=== PATIENT | female | born 1990 | race Two or more races ===

== ENCOUNTER 2023-08-11 16:07 | Outpatient (REF) | payer MEDICAID, SELFPAY ==
[2023-08-16 14:59] LABS: C. trachomatis RNA TMA NOT DETECTED (NOT DETECTED); N. gonorrhoeae RNA TMA NOT DETECTED (NOT DETECTED); Trichomonas (NAAT) NOT DETECTED (NOT DETECTED)
[2023-08-16 18:18] LABS: HPV mRNA E6/E7 rflx Not Detected (Not Detected)
== END 2023-08-11 16:08 | disposition home or self-care (01) ==
LOC: HO.HHCLNP 16:07
PROVIDERS: Visit Provider Advanced Practice Midwife
DX: Z12.4 Encounter for screening for malignant neoplasm of cervix (principal); Z11.51 Encounter for screening for human papillomavirus (HPV); Z11.3 Encounter for screening for infections with a predominantly sexual mode of transmission
CPT/HCPCS: 36415; 87491; 87591; 87624; 87661; 88142

== ENCOUNTER 2023-09-13 08:22 | Outpatient (REF) | payer MEDICAID, SELFPAY ==
[2023-09-14 15:42] LABS: IgA 279 mg/dL (47-310); IgG 1458 mg/dL (600-1640); IgM 153 mg/dL (50-300)
== END 2023-09-13 08:23 | disposition home or self-care (01) ==
LOC: HO.HHCL 08:22
PROVIDERS: Visit Provider Family Medicine
DX: Z87.09 Personal history of other diseases of the respiratory system (principal)
CPT/HCPCS: 36415; 82784

== ENCOUNTER 2023-11-30 08:36 | Outpatient (REF) | payer MEDICAID, SELFPAY ==
[2023-11-30 11:26] LABS: MANUAL DIFF FLAG NO
[2023-11-30 11:43] LABS: Basophils Percent Auto 0.5 % (0-2); Eosinophils Absolute Auto 0.1 X10*3/uL (0.0-0.4); Eosinophils Percent Auto 1.2 % (0-4); Hematocrit 40.3 % (37.0-47.0); Hemoglobin 13.3 g/dl (12.0-16.0); Imm Gran Abs Auto 0.01 X10*3/uL (0.00-0.03); Imm Gran Pct Auto 0.2 % (0.0-0.4); Lymphocytes Absolute Auto 2.3 X10*3/uL (1.2-4.9); Lymphocytes Percent Auto 38.6 % (20-40); Mean Corpuscular Hemoglobin 28.5 pg (27.0-33.0); Mean Corpuscular Volume 86.3 fL (80.0-98.0); Mean Platelet Volume 10.1 fL (9.4-12.3); Monocytes Absolute Auto 0.3 X10*3/uL (0.1-1.2); Monocytes Percent Auto 5.6 % (2-11); Neutrophils Absolute Auto 3.3 x10*3/uL (2.0-8.3); Neutrophils Percent Auto 53.9 % (45-73); Platelet Count 459 X10*3/uL (160-400); Red Blood Count 4.67 X10*6/uL (4.20-5.50); Red Cell Distribution Width 13.9 % (11.0-16.0)
[2023-11-30 12:15] LABS: Alanine Aminotransferase 27 U/L (0-31); Albumin Level 4.4 g/dL (3.5-5.0); Alkaline Phosphatase 72 U/L (39-117); Anion Gap 12 (12-20); Aspartate Amino Transferase 23 U/L (5-31); Bilirubin Total 0.4 mg/dL (0.0-1.0); Blood Urea Nitrogen 10 mg/dL (9-16); Calcium 9.3 mg/dL (8.4-10.2); Carbon Dioxide 22 mmol/L (22-29); Chloride 108 mmol/L (96-108); Estimated Glomerular Filt Rate > 60; Glucose Random 89 mg/dL (60-115); HCG Quantitative 835 mIU/mL; Potassium 3.7 mmol/L (3.3-5.1); Sodium 138 mmol/L (135-145); Total Protein 8.1 g/dL (6.5-8.0)
[2023-11-30 12:39] LABS: Vitamin B12 485 pg/mL (200-900)
[2023-12-03 13:58] LABS: Anti Nuclear Antibody Screen NEGATIVE (NEGATIVE)
[2023-12-04 09:19] LABS: ANA Pattern 2 TN
== END 2023-11-30 08:37 | disposition home or self-care (01) ==
LOC: HO.HHCL 08:36
PROVIDERS: Visit Provider Family Medicine
DX: O26.899 Other specified pregnancy related conditions, unspecified trimester (principal); O99.019 Anemia complicating pregnancy, unspecified trimester; R68.2 Dry mouth, unspecified; D51.9 Vitamin B12 deficiency anemia, unspecified
CPT/HCPCS: 36415; 80053; 82607; 82746; 84702; 85025; 86038

== ENCOUNTER 2024-06-01 17:21 | Outpatient (REF) | payer MEDICAID, SELFPAY | END 2024-06-01 17:22 | disposition home or self-care (01) | LOC: HO.HHCLNP 17:21 | PROVIDERS: Visit Provider Emergency Medicine | DX: J06.9 Acute upper respiratory infection, unspecified (principal) | CPT/HCPCS: 87086 ==

== ENCOUNTER 2024-08-02 11:51 | Outpatient (REF) | payer MEDICAID, SELFPAY ==
[2024-08-02 13:27] LABS: MANUAL DIFF FLAG NO
[2024-08-02 13:37] LABS: Basophils Percent Auto 0.5 % (0-2); Eosinophils Absolute Auto 0.2 X10*3/uL (0.0-0.4); Eosinophils Percent Auto 3.5 % (0-4); Hematocrit 33.9 % (37.0-47.0); Hemoglobin 11.3 g/dl (12.0-16.0); Imm Gran Abs Auto 0.04 X10*3/uL (0.00-0.03); Imm Gran Pct Auto 0.6 % (0.0-0.4); Lymphocytes Absolute Auto 1.7 X10*3/uL (1.2-4.9); Lymphocytes Percent Auto 26.1 % (20-40); Mean Corpuscular HGB Conc 33.3 g/dl (31.0-35.0); Mean Corpuscular Hemoglobin 28.8 pg (27.0-33.0); Mean Corpuscular Volume 86.3 fL (80.0-98.0); Mean Platelet Volume 9.5 fL (9.4-12.3); Monocytes Absolute Auto 0.4 X10*3/uL (0.1-1.2); Monocytes Percent Auto 6.8 % (2-11); Neutrophils Absolute Auto 4.1 x10*3/uL (2.0-8.3); Neutrophils Percent Auto 62.5 % (45-73); Platelet Count 377 X10*3/uL (160-400); Red Blood Count 3.93 X10*6/uL (4.20-5.50); Red Cell Distribution Width 14.3 % (11.0-16.0); White Blood Count 6.5 X10*3/uL (4.8-10.8)
[2024-08-02 14:00] LABS: Appearance Urine Cloudy; Color Urine Yellow; Glucose Urine UA Negative (Negative); Leukocyte Esterase Urine Large (3+) (Negative); Nitrite Urine Negative (Negative); Specific Gravity - Urine <= 1.005 (1.005-1.025); UMIC TRIGGER UACC YES; Urine Blood Large (3+) (Negative); Urine Ketones Negative (Negative); Urine Protein Negative (Neg-Trace)
[2024-08-02 14:06] LABS: Alanine Aminotransferase 40 U/L (0-31); Albumin Level 3.5 g/dL (3.5-5.0); Alkaline Phosphatase 177 U/L (39-117); Anion Gap 12 (12-20); Aspartate Amino Transferase 53 U/L (5-31); Bilirubin Total 0.2 mg/dL (0.0-1.0); Blood Urea Nitrogen 11 mg/dL (9-16); Carbon Dioxide 24 mmol/L (22-29); Chloride 106 mmol/L (96-108); Estimated Glomerular Filt Rate > 60; Glucose Random 85 mg/dL (60-115); Potassium 3.7 mmol/L (3.3-5.1); Sodium 138 mmol/L (135-145); Total Protein 6.8 g/dL (6.5-8.0)
[2024-08-02 14:10] LABS: TSH reflex Free T4 0.76 uIU/mL (0.32-4.0)
[2024-08-02 14:15] LABS: Bacteria Urine 4+ (None Seen); Hyaline Casts Urine 0-2 /LPF (0-2); Squamous Epithelial Cell Urine 0-2 /HPF (0-2); UACC Culture Trigger YES; WBC Urine >50 /HPF (0-5)
== END 2024-08-02 11:52 | disposition home or self-care (01) ==
LOC: HO.HHCL 11:51
PROVIDERS: Visit Provider Family Medicine
DX: R53.83 Other fatigue (principal); K59.00 Constipation, unspecified; R30.0 Dysuria
CPT/HCPCS: 36415; 80053; 81001; 84443; 85025; 87086; 87088; 87186

== ENCOUNTER 2024-08-21 11:32 | Outpatient (REF) | payer MEDICAID, SELFPAY ==
[2024-08-21 13:24] LABS: MANUAL DIFF FLAG NO
[2024-08-21 13:39] LABS: Basophils Percent Auto 0.3 % (0-2); Eosinophils Absolute Auto 0.1 X10*3/uL (0.0-0.4); Eosinophils Percent Auto 0.8 % (0-4); Hematocrit 38.3 % (37.0-47.0); Hemoglobin 12.7 g/dl (12.0-16.0); Imm Gran Abs Auto 0.02 X10*3/uL (0.00-0.03); Imm Gran Pct Auto 0.3 % (0.0-0.4); Lymphocytes Absolute Auto 1.2 X10*3/uL (1.2-4.9); Lymphocytes Percent Auto 20.2 % (20-40); Mean Corpuscular HGB Conc 33.2 g/dl (31.0-35.0); Mean Corpuscular Hemoglobin 28.1 pg (27.0-33.0); Mean Corpuscular Volume 84.7 fL (80.0-98.0); Mean Platelet Volume 9.7 fL (9.4-12.3); Monocytes Absolute Auto 0.4 X10*3/uL (0.1-1.2); Monocytes Percent Auto 6.6 % (2-11); Neutrophils Absolute Auto 4.4 x10*3/uL (2.0-8.3); Neutrophils Percent Auto 71.8 % (45-73); Platelet Count 365 X10*3/uL (160-400); Red Blood Count 4.52 X10*6/uL (4.20-5.50); Red Cell Distribution Width 14.4 % (11.0-16.0); White Blood Count 6.1 X10*3/uL (4.8-10.8)
[2024-08-21 14:17] LABS: Alanine Aminotransferase 41 U/L (0-31); Alkaline Phosphatase 136 U/L (39-117); Aspartate Amino Transferase 32 U/L (5-31); Bilirubin Direct 0.1 mg/dL (0.0-0.5); Bilirubin Total 0.4 mg/dL (0.0-1.0); Total Protein 7.4 g/dL (6.5-8.0)
[2024-08-22 08:39] LABS: Hepatitis A Antibody IgG REACTIVE (Nonreactive); ~Hepatitis A Antibody IgG 10.36 S/CO (0.00-0.99)
[2024-08-22 08:57] LABS: HBS Num1 16.27 mIU/mL (0-7.99); HBc Num1 0.17 S/CO (0.00-0.79); HBsAGNum1 0.23 S/CO (0.00-0.99); Hepatitis B Core Antibody Nonreactive (Nonreactive); Hepatitis B Surface Antigen Negative (Negative); ~HepC Num1 0.23 S/CO (0.00-0.79); ~Hepatitis B Surface Antibody REACTIVE (Nonreactive); ~Hepatitis C Antibody Nonreactive (Nonreactive)
== END 2024-08-21 11:33 | disposition home or self-care (01) ==
LOC: HO.HHCL 11:32
PROVIDERS: Visit Provider Family Medicine
DX: R74.01 Elevation of levels of liver transaminase levels (principal); D51.9 Vitamin B12 deficiency anemia, unspecified
CPT/HCPCS: 36415; 80076; 85025; 86704; 86706; 86708; 86803; 87340

== ENCOUNTER 2024-11-28 13:49 | Outpatient (REF) | payer MEDICAID, SELFPAY ==
--- NOTE | ~2024-11-28 | MM_ITS ---
EXAMINATION: MM DIAGNOSTIC DIGITAL BREAST TOMOSYNTHESIS, BILATERAL Limited right breast ultrasound for palpable lump and pain. CLINICAL INFORMATION: Right breast palpable lump and pain upper breast. COMPARISON: Mammography: Baseline. TECHNIQUE: Digital breast mammography with tomosynthesis is performed in both the craniocaudal and mediolateral oblique views along with computer-aided detection (CAD). Limited right breast ultrasound. FINDINGS: The breasts are heterogeneously dense, which may obscure small masses (ACR BI-RADS breast composition Category c). There are no significant masses, abnormal calcifications, or other abnormalities. Targeted color Doppler ultrasound scanning in the area the patient's pain and palpable lump in the upper breast from 9-3 o'clock demonstrates normal fibroglandular breast tissue. There is no sonographic abnormality. Results are provided to the patient at time of visit by the technologist. MM/MM tomosynthesis diagnostic BI IMPRESSION: Right: No mammographic or sonographic abnormality to account for the patient's palpable lump and pain. Recommend clinical evaluation follow-up. Left: Negative ASSESSMENT: BI-RADS BI-RADS 1 - Negative RECOMMENDATION: 1 year F/U This patient's information was entered into a reminder system with a target due date for their next mammogram. Electronically signed by: Kiah Rodriguez DO 11/28/2024 05:29 PM LAURIE CIFUENTES
--- OUTSIDE RECORDS SUMMARY | 2024-11-28 15:13 | XMS_ITS | Encounter Summary ---
Author Organization [employer] Address [address] [place] [address] [address] [place] [address] Care Team Providers Care Ultimate Hoops Scoreboard Operator Name Role Phone Priyanka Orozco MD Primary Care Provider [phone] Reason for Referral * Consultation (Urgent) - Closed Specialty Diagnoses / Procedures Referred By Contjose t Referred To Contact Diagnoses , unspecified gestational age Priyanka Orozco MD [address] [place] [phone] Phone: tel: fax: Tracy Ramírez [address] [place] [phone] Phone: tel: fax: Referral ID Status Reason Start Date Expiration Date V isits Requested Visits Authorized [id number] Closed Specialty Services Required 01/05/2024 01/04/2025 30 30 Encounter Details Date Type Department Care Team (Late st Contact Info) Description 12/27/2023 Orders Only [facility] [address] [place] [address] [phone] Priyanka Orozco MD [address] [place] [address] [phone] , unspecified gestational age (Primary Dx); Vitamin B12 deficiency Social History Tobacco Use Types Packs/Day Years Used Date Smoking Tobacco: Never Smokeless Tobacco: Never Alcohol Use Standard Drinks/Week Comments Yes 0 (1 standard drink = 0.6 oz pur e alcohol) Comments No Sex and Gender Information Value Date Recorded Sex Assigned at Female 08/16/2022 10:26 AM EDT Legal Sex Female 10:26 AM EDT Gender Identity Female 08/16/2022 10:26 AM EDT Sexual Orientation Straight 08/16/2022 10 :26 AM EDT documented as of this encounter Plan of Treatment Upcoming Encounters Date Type Department Care Team (Late st Contact Info) Description 12/18/2024 9:30 AM EST Clinical Support [address] [address] 01/09/2025 2:00 PM EDT Clinical Support [address] [address] Scheduled Referrals Name Type Priority Associated Diagnoses Orde r Schedule Referral to Obstetrics / Gynecology Outpatient Referral Urgent , unspecified gestational age Expected: 01/05/2024 (Approximate), Expires: 01/04/2025 documented as of this encounter Visit Diagnoses Diagnosis , unspecified gestational age- Primary Vitamin B12 deficiency Other B-complex deficiencies documented in this encounter Care Teams Ultimate Hoops Scoreboard Operator Relationship Specialty Start Date End Date Priyanka Orozco MD [address] [place] [phone] PCP - General Family Medicine 11/25/21 documented as of this encounter
--- OUTSIDE RECORDS SUMMARY | 2024-11-28 15:13 | XMS_ITS | Encounter Summary ---
Author Organization [facility] Address [address] [place] [address] [address]t [address] Floor [place] [phone] Care Team Providers Care Knit Goods Press Hand Name Role Phone Priyanka Orozco MD Primary Care Provider [phone] Encounter Details Date Type Department Care Team (Latest Contact Info) Description 12/15/2018 Abstract [facility] CONVERSION[facility] Dental, Provider, DDS Social History Tobacco Use Types Packs/Day Years Used Date Smoking Tobacco: Never Assessed Comments Unknown Sex and Gender Information Value Date Recorded Sex Assigned at Female 08/16/2022 10:26 AM EDT Legal Sex Female 10:26 AM EDT Gender Identity Female 08/16/2022 10:26 AM EDT Sexual Orientation Straight 08/16/2022 10 :26 AM EDT documented as of this encounter Plan of Treatment Upcoming Encounters Date Type Department Care Team (Late st Contact Info) Description 12/18/2024 9:30 AM EST Clinical Support [facility] [address] [place] [phone] 01/09/2025 2:00 PM EDT Clinical Support [facility] [address] [place] [phone] documented as of this encounter Visit Diagnoses Not on filedocumented in this encounter Care Teams Knit Goods Press Hand Relationship Specialty Start Date End Date Priyanka Orozco MD [address] [place] [phone] PCP - General Family Medicine 11/25/21 documented as of this encounter
--- OUTSIDE RECORDS SUMMARY | 2024-11-28 15:13 | XMS_ITS | Encounter Summary ---
Author Organization [employer] [facility] Address [address] [facility] [address]t h Floor [place] [phone] Care Team Providers Care Department Store Door Greeter Name Role Phone Priyanka Orozco MD Primary Care Provider [phone] Encounter Details Date Type Department Care Team ([facility] Contact Info) Description 08/02/2024 Orders Only [facility] [address] [place] [address] [phone] Priyanka Orozco MD [address] [place] [address] [phone] Transaminitis (Primary Dx) Social History Tobacco Use Types Packs/Day Years [...] Encounters Date Type Department Care Team (Late Contact Info) Description 12/18/2024 9:30 AM EST Clinical Support [address] [phone] 01/09/2025 2:00 PM EDT Clinical Support [address] [phone] documented as of this encounter Procedures Procedure Name Priority Date/Time Associated Diagnosis Comments HEPATITIS C AB W/REFL TO HCV RNA, QN, PCR Routine 08/21/2024 11:39 AM EST Transaminitis HEPATITIS A ANTIBODY, TOTAL Routine 08/21/2024 11:39 AM EST Transaminitis HEPATITIS B SURFACE ANTIGEN, EIA Routine 08/21/2024 11:39 AM EST Transaminitis HEPATITIS B CORE AB TOTAL Routine 08/21/2024 11:39 AM EST Transaminitis HEPATITIS B SURFACE ANTIBODY, QUALITATIVE Routine 08/21/2024 11:39 AM EST Transaminitis HEPATIC FUNCTION PANEL Routine 08/21/2024 11:39 AM EST Transaminitis CULTURE, URINE, ROUTINE Routine 08/02/2024 12:00 AM EDT Transaminitis documented in this encounter Results * Hepatitis B surface antigen, EIA (08/21/2024 11:39 AM EST) Hepatitis B Surface Ag Negative Negative [facility] Blood Venous blood specimen / Unknown 08/21/2024 11:39 AM EST 08/21/2024 1:19 PM EST us Priyanka Orozco MD LAB BLOOD ORDERABLES Final Resul t Performing Organization Address [facility] Co de Phone Number [facility] [address] [place] [phone] * Hepatitis A Antibody, Total (08/21/2024 11:39 AM EST) Hepatitis A Antibody IgG REACTIVE Nonreactive [facility] Comment:The presence of IgG anti-HAV implies past HAV infection(recent or distant) or vaccination against HAV. Blood Venous blood specimen / Unknown 08/21/2024 11:39 AM EST 08/21/2024 1:19 PM EST us Priyanka Orozco MD LAB BLOOD ORDERABLES Final Resul t Performing Organization Address City/[facility]/ZIP Co de Phone Number [facility] [address] [place] [phone] * Hepatitis C Antibody with Reflex to HCV, RNA, Quantitative, Real-Time PCR (08/21/2024 11:39 AM EST) Pathologist [facility] Hepatitis C Antibody Nonreactive Nonreactive [facility] Comment:Antibodies to HCV no t detected; does not exclude early acuteHCV infection. Blood Venous blood specimen / Unknown 08/21/2024 11:39 AM EST 08/21/2024 1:19 PM EST us Priyanka Orozco MD LAB BLOOD ORDERABLES Final Resul t Performing Organization Address [facility]/ZIP Co de Phone Number [facility] [address] [place] [phone] * Hepatitis B Core Antibody, Total (08/21/2024 11:39 AM EST) Pathologist [facility] Hepatitis B Core Antibody Nonreactive Nonreactive [facility] Blood Venous blood specimen / Unknown 08/21/2024 11:39 AM EST 08/21/2024 1:19 PM EST us Priyanka Orozco MD LAB BLOOD ORDERABLES Final Resul t Performing Organization Address [facility] Co de Phone Number [facility] [address] [place] [phone] * Hepatitis B Surface Antibody, Qualitative (08/21/2024 11:39 AM EST) Pathologist [facility] ~Hepatitis B Surface Antibody REACTIVE Nonreactive [facility] Comment:REACTIVE: > 11.99 mI U/mL Blood Venous blood specimen / Unknown 08/21/2024 11:39 AM EST 08/21/2024 1:19 PM EST us Priyanka Orozco MD LAB BLOOD ORDERABLES Final Resul t Performing Organization Address [facility]/ZIP Co de Phone Number [facility] [address] [place] [phone] * (ABNORMAL) Hepatic Function Panel (08/21/2024 11:39 AM EST) Bilirubin, Total 0.4 0.0 - 1.0 mg/dL [facility] Bilirubin, Direct 0.1 0.0 - 0.5 mg/dL [facility] Aspartate Amino Transferase 32(H) 5 - 31 U/L [facility] Alanine Aminotransferase 41(H) 0 - 31 U/L [facility] Total Protein 7.4 6.5 - 8.0 g/dL [facility] Albumin Level 4.0 3.5 - 5.0 g/dL [facility] Alkaline Phosphatase 136(H) 39 - 117 U/L [facility] Blood Venous blood specimen / Unknown 08/21/2024 11:39 AM EST 08/21/2024 1:19 PM EST Priyanka Orozco MD LAB BLOOD ORDERABLES Final Resul t [facility] [address] [place] [phone] * Culture, Urine, Routine (08/02/2024 12:00 AM EDT) Urine Urine specimen obtained by clean catch procedure / Unknown 08/02/2024 08/02/2024 Comment:[facility]ACC Narrative [facility] - 08/04/2024 8:23 AM EDT Escherichia coli Quant > 100,000 cfu/mL Escherichia coli: Ampicillin >=32(R) Escherichia coli: Cefazolin <=4(S) Escherichia coli: Ceftriaxone <=0.25(S) Escherichia coli: Ciprofloxacin <=0.25(S) Escherichia coli: Gentamicin <=1(S) Escherichia coli: Nitrofurantoin <=16(S) Escherichia coli: Trimethoprim/Sulfamethoxazole <=20(S) Specimen Source: Urine clean catch Priyanka Orozco MD LAB MICROBIOLOGY - GENERAL ORDER DEMETRICE Final Result [facility] [address] [place] [phone] documented in this encounter Visit Diagnoses Diagnosis Transaminitis- Primary Nonspecific elevation of levels of transaminase or lactic acid dehydrogenase (LDH) documented in this encounter Care Teams Department Store Door Greeter Relationship Specialty Start Date End Date Priyanka Orozco MD [address] [place] [phone] PCP - General Family Medicine 11/25/21 documented as of this encounter
--- OUTSIDE RECORDS SUMMARY | 2024-11-28 15:13 | XMS_ITS | Clinical Summary ---
Author Organization [employer] Address [address] [facility] [address] [place] [address] Care Team Providers Care Kennel Manager Dog Track Name Role Phone Priyanka Orozco MD Primary Care Provider [phone] Allergies Active Allergy Reactions Criticality Noted Date Comments Penicillins 07/12/2014 Other reaction(s): Hives/Skin Rash Medications cyclobenzaprine (Flexeril) 5 MG tabletIndications :Neck muscle spasm Take one tablet by mouth at bedtime as needed for muscle spasm. May take additional one tablet if not improving with one tablet. Maximum Daily Dose 2 tablets. DO NOT USE EVERYDAY FOR > 2 wks 30 tablet 1 10/04/20 23 Active melatonin 5 MG tablet Take 1 tablet 2-3 hours before your desired bedtime as needed for difficulty sleeping 30 tablet 3 12/27/19 24 Active pyridoxine (Vitamin B-6) 25 MG tablet Take 1 tablet (25 mg) by mouth every 6 (six) hours if needed (nausea). 100 tablet 02/06/20 24 Active cetirizine (ZyrTEC) 10 MG tablet Take 1 tablet (10 mg) by mouth Once per day. 90 tablet 3 03/06/20 24 2024 Active fluticasone (Flonase Allergy Relief) 50 MCG/ACT nasal spray Administer 1 spray into each nostril Once per day. Shake gently. Before first use, prime pump. After use, clean tip and replace cap. 16 g 12 06/01/20 24 2024 Active ondansetron (Zofran) 4 MG tablet Take 1 tablet (4 mg) by mouth every 8 (eight) hours if needed for nausea or vomiting. 12 tablet 06/29/20 24 Active Misc. Devices (Pulse Oximeter For Finger) misc 1 each 2 times daily. 1 each 06/29/20 Active docusate sodium (Colace) 100 MG capsuleIndication s:Constipation, unspecified constipation type Take 1 capsule (100 mg) by mouth 2 times daily. 60 capsule 5 08/01/20 Active ibuprofen 600 MG tabletIndications :Acute nonintractable headache, unspecified headache type,Malaise,Post cramps Take 1 tablet (600 mg) by mouth every 8 (eight) hours if needed for mild pain. 50 tablet 1 08/01/20 24 Active Acetaminophen 500 MG capsuleIndication s:Acute nonintractable headache, unspecified headache type,Malaise,Post cramps Take 1 or 2 capsules by mouth every 8 hours as needed for pain or fever 50 capsule 1 08/01/20 24 Active 27-1 MG tablet Take 1 tablet by mouth in the morning. 90 tablet 1 08/02/20 Active medroxyPROGESTERo ne (Depo-Provera) 150 MG/ML injection Inject 1 mL (150 mg) into the muscle every 3 (three) months. 1 mL 3 08/07/20 Active triamcinolone (Kenalog) 0.1 % creamIndications: Rash due to allergy Apply topically if needed in the morning and at bedtime (pain and swelling). 30 g 08/10/20 Active loratadine (Claritin) 10 MG tabletIndications :Rash due to allergy Take 1 tablet (10 mg) by mouth every 12 (twelve) hours if needed for allergies. 20 tablet 08/10/20 24 2024 Active cyanocobalamin (Vitamin B-12) 1000 MCG/ML injectionIndicati ons:Vitamin B12 deficiency INJECT 1 ML INTRAMUSCULARLY ONCE EVERY MONTH 3 mL 3 10/15/20 Active metroNIDAZOLE (Metrogel) 0.75 % gel Apply topically 2 times daily. 445 g 1 11/22/19 24 2024 Hospital, Clinic, or Other Facility Administered Medication Ordered Dose Route Frequency Start Date End Date Status cyanocobalamin (Vitamin B-12) injection 1,000 mcgIndications:Anemia due to vitamin B12 deficiency, unspecified B12 deficiency type 1000 mcg IM Every 30 days 12/27/2023 12/21/2024 Ac tive Active Problems Problem Noted Date Diagnosed Date Rash due to allergy 08/10/2024 Assessment & Plan (08/10/2024 11:44 AM EDT): Try to identify and avoid trigger I will prescribe loratadine I will prescribe prednisone only 20mg once a day (do not use breast milk after taking medication (use only once a day formula for baby) Triamcinolone locally BID if needed I will refer her to range management specialist Neck pain 10/06/2023 Assessment & Plan (10/06/2023 8:56 AM EST): - chronic, likely muscle spasm - massage, heat - continue cyclobenzaprine prn Varicose veins of bilateral lower extremities wi th pain 10/06/2023 Assessment & Plan (10/06/2023 9:02 AM EST): - leg elevation - compression stocking - refer to vascular specialist History of frequent upper respiratory infection 09/01/2023 Assessment & Plan (09/01/2023 4:27 PM EST): Pt reports life long, severe URIs that are frequent. Will screen for IG A deficiency Anxiety 02/22/2023 Assessment & Plan (10/06/2023 8:59 AM EST): - with aerophobia - previously prescribed sertraline, but not taking everyday - not interested in taking medications or BHS Assessment & Plan (02/22/2023 5:12 AM EDT): - with aerophobia - previously prescribed sertraline, but not taking everyday - will try hydroxyzine or diphenhydramine prn - if it is not effective, will try benzodiazepine only for flight Allergic rhinitis 02/22/2023 Assessment & Plan (10/06/2023 9:00 AM EST): - continue loratadine and montelukast - referred to range management specialist for allergy test and immunotherapy. Assessment & Plan (02/22/2023 5:17 AM EDT): - continue loratadine and montelukast - refer to range management specialist for allergy test and immunotherapy. Dental plaque 01/04/2023 Open adventist margins 01/04/2023 Acne vulgaris 12/14/2022 Assessment & Plan (05/27/2023 6:17 AM EDT): - seen in Derm clinic - prescribed spironolactone - continue treatment - combined OCP will be beneficial for acne Assessment & Plan (02/22/2023 5:14 AM EDT): - seen in Derm clinic - prescribed spironolactone - continue treatment Recurrent urinary tract infection 12/14/2022 Assessment & Plan (08/26/2024 4:55 PM EST): - previously following with urologist, last seen in Oct 2022 - Rx methanamine for UTI prophylaxis, stopped when she became - most recent UTI on 08/01/24. E.coli; initially prescribed nitrofurantoin, which was changed to cefuroxime. Patient did not complete cefuroxime. Patient was advised to complete cefuroxime treatment. - patient was advised to go to ED if her symptoms do not improve or worsen. Assessment & Plan (02/22/2023 5:16 AM EDT): - following with urologist - Rx methanamine for UTI prophylaxis. Vitamin B12 deficiency anemia 12/14/2022 Assessment & Plan (08/21/2024 10:35 AM EST): - continue vitamin B12 IM - recheck lab Assessment & Plan (10/06/2023 8:58 AM EST): - continue vitamin B12 IM - recheck lab Assessment & Plan (02/22/2023 5:15 AM EDT): - continue vitamin B12 IM - recheck lab Resolved Problems Problem Noted Date Diagnosed Date Resolved Date Dry mouth 10/04/2023 08/01/2024 Assessment & Plan (10/06/2023 8:58 AM EST): - likely related to allergic rhinitis - will check for Sjogren's On oral contraceptive therapy for acne 05/27/2023 10/04/2023 Assessment & Plan (05/27/2023 6:15 AM EDT): - for both contraceptive and non-contraceptive indication - monophasic combined OCP will be beneficial for acne Aerophobia 02/22/2023 08/01/2024 Assessment & Plan (02/22/2023 5:15 AM EDT): - trial of hydroxyzine prn flight Viral gastroenteritis 10/15/20222022 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 , antepartum 01/14/2011 10/04/2023 Encounters Date Type Department Care Team Description 11/20/2024 10:00 AM EST Clinical Support [facility] [address] [place] [id number] Heather Razo RN Anemia due to vitamin B12 deficiency, unspecified B12 deficiency type 11/20/2024 Travel 10/25/2024 Orders Only [facility] [address] [place] [phone] Priyanka Orozco MD Breast pain, right (Primary Dx); Breast lump on right side at 6 o'clock position 10/24/2024 2:00 PM EST Clinical Support [facility] [address] [place] [address] Heather Razo RN Family planning counseling 10/24/2024 Travel 10/14/2024 Refill [facility] [address] [place] [address] Priyanka Orozco MD Vitamin B12 deficiency from Last 3 Months Immunizations Name Administration Dates Next Due DTaP 12/20/1994, 2,02/27/1991,09/14,1990 HPV, Quadrivalent 01/14/2011,04/16/2009,02/15/20 09 Hep A, Adult 09/18/2013,01/12/2013 Hep B, Adolescent or Pediatric 06/20/1998,1997 Hep B, adult 04/12/2017, 7,02/14/2009,09/05 IPV 12/30/1994, 2,02/27/1991,09/14,1990 Influenza Injectable Quadriv alant Preservative Free IIV4 MDCK 07/02/2020 Influenza injectable quadriv alent IIV4 with preservative 06/27/2019 Influenza injectable quadriv alent preservative free 06/24/2022,10/02/2021 Influenza, IIV3, injectable 07/19/2017,1 11/07/2015,09/26/2015,09/18,08/02/2011,08/13/2009,10/22/2008 Influenza, live, intranasal 09/11/2010 MMR 04/12/2017, 7,01/01/1994,08/17 Meningococcal MPSV4 10/22/2008 Moderna Covid-19 Vaccine 12+ 10/02/2021,11/27/19 21,10/30/2020 Rubella 10/05/2002 Tdap 06/24/2022,07/05/2017,10/22/2008 Varicella 01/02/2019,02/05/2009 Family History Medical History Relation Name Comments Stomach cancer Maternal Grandmother Relation Name Status Comments Maternal Grandmother Social History Tobacco Use Types Packs/Day Years Used Date Smoking Tobacco: Never Smokeless Tobacco: Never Tobacco Cessation:Counseling Given: Not Answered Alcohol Use Standard Drinks/Week Comments Not Currently 0 (1 standard drink = 0.6 oz pur e alcohol) Comments No Sex and Gender Information Value Date Recorded Sex Assigned at Female 08/16/2022 10:26 AM EDT Legal Sex Female 10:26 AM EDT Gender Identity Female 08/16/2022 10:26 AM EDT Sexual Orientation Straight 08/16/2022 10 :26 AM EDT Last Filed Vital Signs Vital Sign Reading Time Taken Comments Blood Pressure 135/81 08/21/2024 9:50 AM EST Pulse 121 08/21/2024 9:50 AM EST Temperature 36.1 ??C (96.9 ??F) 08/21/2024 9:50 AM ES T Respiratory Rate 20 08/10/2024 9:51 AM EDT Oxygen Saturation 97% 08/21/2024 9:50 AM EST Inhaled Oxygen Concentration - - Weight 84 kg (185 lb 4 oz) 08/21/2024 9:[address] Height 162.6 cm (5' 4 ) 08/21/2024 9:50 AM EST Body Mass Index 31.8 08/21/2024 9:50 AM EST Plan of Treatment Upcoming Encounters Date Type Department Care Team (Late st Contact Info) Description 12/18/2024 9:30 AM EST Clinical Support [address] [address] 01/09/2025 2:00 PM EDT Clinical Support [address] [address] Health Maintenance Due Date Last Done Comments Depression Screening 1990 SDOH Screening 1990 Alcohol/Substance Use Screening 2002 Dental Oral Exam 07/08/2023 01/04/2023 Dental Prophylaxis 07/08/2023 01/04/2023 Dental X-Ray: Bitewings 01/06/2024 01/04/2023 COVID-19 Vaccine ( season) 2024 10/02/2021, 11/27/2020, 10/30/2020 Influenza Vaccine (#1) 2024 , 10/02/2021, 07/02/2020, Additional history exists Family Planning (PISQ) 08/07/2025 08/07/2024 Tobacco Screening 08/21/2025 08/21/2024 Dental X-Ray: Full Mouth 01/05/2026 01/04/2023 Cervical Cancer Screening 08/11/2026 HPV/Cotest 08/11/2026 08/11/2023 Pap Smear 08/11/2026 08/11/2023, 08/11/2023 DTaP/Tdap/Td Vaccines (9 - Td or Tdap) 06/24/2032 06/24/2022, 07/05/2017, 10/22/2008, Additional history exists Zoster Vaccines (1 of 2) 2040 RSV Patients and Patients Aged 60 years or older (1 - 1-dose 75+ series) 2065 IPV Vaccines Completed 12/30/1994, 12/15, 02/27/1991, Additional history exists Meningococcal Vaccine Aged Out 10/22/2008 No tati nikunj eligible based on patient's age to complete this topic HPV Vaccines Completed 01/14/2011, 07/0 10/2008, 02/14/2009 Hepatitis A Vaccines Aged Out 09/18/2013, 01/13/20 13 No longer eligible based on patient's age to complete this topic Hepatitis B Vaccines Completed 04/12/2017, 02/08/2017, 02/14/2009, Additional history exists HIV Screening Completed 03/31/2023, 12/04/2021 Hepatitis C Screening Completed 08/21/2024 , 03/31/2023, 12/04/2021 HIB Vaccines Aged Out No longer eligi ble based on patient's age to complete this topic Pneumococcal Vaccine: Pediatrics (0 to 5 Years) and At-Risk Patients (6 to 49) Years) Aged Out No longer eligible based on patient's age to complete this topic RSV under 20 months Aged Out No longe r eligible based on patient's age to complete this topic Rotavirus Vaccines Aged Out No longer eligible based on patient's age to complete this topic Procedures Procedure Name Priority Date/Time Associated Diagnosis Comments HEPATITIS C AB W/REFL TO HCV RNA, QN, PCR Routine 08/21/2024 11:39 AM EST Transaminitis HPV MRNA E6/E7 REFLEX TO HPV 16, 18/45 Routine 08/11/2023 9:30 AM EDT IMAGE-GUIDED PAP W/AGE BASED SCR,W/CT/NG/TRICH Routine 08/11/2023 9:30 AM EDT Encntr screen for infections w sexl mode of transmiss Cervical cancer screening HIV 1/2 ANTIGEN/ANTIBODY, FOURTH GENERATION W/RFL Routine 03/31/2023 1:33 PM EDT Routine screening for STI (sexually transmitted infection) PERIODIC ORAL EVALUATION - ESTABLISHED PATIENT Routine 01/04/2023 9:00 AM EDT PROPHYLAXIS - ADULT Routine 01/04/2023 8 :00 AM EDT Dental plaque DIAGNOSTIC - DIAGNOSTIC IMAGING - INTRAORAL - COMPREHENSIVE SERIES OF RADIOGRAPHIC IMAGES Routine 01/04/2023 8:00 AM EDT Dental plaque from Last 3 Months or Most Recently Relevant to Health Maintenance Results * Hepatitis C Antibody with Reflex to HCV, RNA, Quantitative, Real-Time PCR (08/21/2024 11:39 AM EST) Hepatitis C Antibody Nonreactive Nonreactive [facility] Comment:Antibodies to HCV no t detected; does not exclude early acuteHCV infection. Blood Venous blood specimen / Unknown 08/21/2024 11:39 AM EST 08/21/2024 1:19 PM EST rPiyanka Orozco MD LAB BLOOD ORDERABLES Final Resul t Performing Organization Address [facility] Co de Phone Number [facility] [address] [place] [phone] * Image-Guided Pap with Age-Based Screening??with CT/NG,??Trichomonas (08/11/2023 9:30 AM EDT) Trichomonas (NAAT) NOT DETECTED NOT DETECTED [facility] Comment:The analytical perfo rmance characteristics of thisassay have been determined by [employer]. Themodifications have not been cleared or approved bythe FDA. This assay has been validated pursuant to theCLIA regulations and is used for clinical purposes.For additional information, please refer tohttp://education.HeartThis/faq/Trichomonastma(This link is being provided for information/educational purposes only.)THIS TEST WAS PERFORMED AT:[facility] [place] [phone] R DE LEÓN MD CTNG Ref Lab NOT DETECTED NOT DETECTED [facility] NG Ref Lab NOT DETECTED NOT DETECTED [facility] 08/11/2023 9:30 AM EDT 08/12/2023 6:30 AM EDT Saritha LORD LAB CYTOLOGY ORDERABLES F inal Result Performing Organization Address [facility]/ZIP Co de Phone Number [facility] [address] [place] [phone] * HPV mRNA E6/E7 w/Reflex to HPV Genotypes 16, 18/45 (08/11/2023 9:30 AM EDT) HPV nRNA E6/E7 Not Detected Not Detected [facility] Comment:Methodology: Transcr iption-Mediated AmplificationThis assay detects E6/E7 viral messenger RNA (mRNA) from 14high-risk HPV types (16,18,31,33,35,39,45,51,52,56,58,59,66,68).Cervical sources are required for HPV testing.If a vaginal source from a patient who has had atotal hysterectomy with removal of cervix wassubmitted, please contact the testing laboratoryfor alternative testing options.For additional information, please refer tohttp://education.HeartThis/faq/ZAY486f8(This link if provided for information/educational purposes only.)THIS TEST WAS PERFORMED AT:[facility] [address] [phone] R DE LEÓN MD HPV mRNA E6/E7 [facility] HPV 16 RNA [facility] HPV 18/45 RNA [facility] 08/11/2023 9:30 AM EDT 08/12/2023 6:30 AM EDT Saritha Oro [facility] CYTOLOGY ORDERABLES F inal Result [facility] [address] [place] [phone] * HIV-1/2 Antigen and Antibodies, Fourth Generation, with Reflexes (03/31/2023 1:33 PM EDT) HIV Antigen/Antibody, 4th Generation NON-REAC TIVE NON-REAC TIVE [facility] Comment: HIV-1 antigen and HIV-1/HIV-2 antibodies were not detected. There is no laboratory evidence of HIV infection. PLEASE NOTE: This information has been disclosed to you from records whose confidentiality may be protected by state law. ??If your state requires such protection, then the state law prohibits you from making any further disclosure of the information without the specific written consent of the person to whom it pertains, or as otherwise permitted by law. A general authorization for the release of medical or other information is NOT sufficient for this purpose. ?? For additional information please refer to http://Tonx.HeartThis/faq/YSU243 (This link is being provided for informational/ educational purposes only.) The performance of this assay has not been clinically validated in patients less than 2 years old. Blood Venous blood specimen / Unknown 03/31/2023 1:33 PM EDT 03/31/2023 1:34 PM EDT Narrative [facility] - 04/07/2023 7:14 PM EDT FASTING:NO FASTING: NO us Priyanka Orozco MD LAB BLOOD ORDERABLES Final Resul t [facility] [address], [place] [address] [facility] [address] [place] [phone] from Last 3 Months or Most Recently Relevant to Health Maintenance Insurance [facility] C3 * Guarantor: Pamela Louie Account Type Relation to Patient Date of Phone Billing Address Dental Self [address] [place] [address] [facility] MEDICAID STAND ADULT Care Teams Kennel Manager Dog Track Relationship Specialty Start Date End Date Priyanka Orozco MD [address] [place] [phone] PCP - General Family Medicine 11/25/21
--- OUTSIDE RECORDS SUMMARY | 2024-11-28 15:13 | XMS_ITS | Encounter Summary ---
Author Organization [facility] Address [address] [place] [address] [address] [place] [address] Care Team Providers Care Digital Production Artist Name Role Phone Priyanka Orozco MD Primary Care Provider [phone] Reason for Referral * Imaging (Routine) - Authorized Specialty Diagnoses / Procedures Referred By Feliz cabezas Referred To Contact Radiology Diagnoses Breast pain, right Breast lump on right side at 6 o'clock position Procedures BI US Breast Complete Right Priyanka Orozco MD [address] [place] [address] Phone: tel: fax: [address] Phone: tel: fax: Referral ID Status Reason Start Date Expiration Date V isits Requested Visits Authorized [id number] Authorized 10/25/2024 10/25/2025 1 1 * Imaging (Routine) - Authorized Specialty Diagnoses / Procedures Referred By Feliz cabezas Referred To Contact Radiology Diagnoses Breast pain, right Breast lump on right side at 6 o'clock position Procedures BI Mammogram Diagnostic Tomosynthesis added right Priyanka Orozco MD [address] [place] [address] Phone: tel: fax: [address] Phone: tel: fax: Referral ID Status Reason Start Date Expiration Date V isits Requested Visits Authorized [id number] Authorized 10/25/2024 10/25/2025 1 1 Encounter Details Date Type Department Care Team (Late st Contact Info) Description 10/25/2024 Orders Only [address] [address] Priyanka Orozco MD [address] [place] [phone] Breast pain, right (Primary Dx); Breast lump on right side at 6 o'clock position Social History Tobacco Use Types Packs/Day Years Used Date Smoking Tobacco: Never Smokeless Tobacco: Never Alcohol Use Standard Drinks/Week Comments Not Currently [...] Description 12/18/2024 9:30 AM EST Clinical Support [address] [address] 01/09/2025 2:00 PM EDT Clinical Support [address] [address] Scheduled Orders Name Type Priority Associated Diagnoses Orde r Schedule BI Mammogram Diagnostic Tomosynthesis added right Imaging Routine Breast pain, right Breast lump on right side at 6 o'clock position Expected: 10/25/2024, Expires: 12/23/2025 BI US Breast Complete Right Imaging Routine Breast pain, right Breast lump on right side at 6 o'clock position Expected: 10/25/2024, Expires: 12/23/2025 documented as of this encounter Visit Diagnoses Diagnosis Breast pain, right- Primary Breast lump on right side at 6 o'clock position Lump or mass in breast documented in this encounter Care Teams Digital Production Artist Relationship Specialty Start Date End Date Priyanka Orozco MD [address] [place] [phone] PCP - General Family Medicine 11/25/21 documented as of this encounter
--- OUTSIDE RECORDS SUMMARY | 2024-11-28 15:13 | XMS_ITS | Encounter Summary ---
Author Organization [employer] Address [address] [place] [address] 7t [place] [address] Care Team Providers Care Picture Enlarger Name Role Phone Priyanka Orozco MD Primary Care Provider [phone] Encounter Details Date Type Department Care Team (Late st Contact Info) Description 03/21/2023 Orders Only [facility] [address] [place], [place] [phone] Priyanka Orozco MD [address] [place], [place] [phone] Fatigue, unspecified type (Primary Dx); Anemia due to vitamin B12 deficiency, unspecified B12 deficiency type; Routine screening for STI (sexually transmitted infection) Social History Tobacco Use Types Packs/Day Years Used Date Smoking Tobacco: Never Smokeless Tobacco: Never Comments No Sex and Gender Information Value Date Recorded Sex Assigned at Female 08/16/2022 10:26 AM EDT Legal Sex Female 10:26 AM EDT Gender Identity Female 08/16/2022 10:26 AM EDT Sexual Orientation Straight 08/16/2022 10 :26 AM EDT COVID-19 Exposure Response Date Recorded In the last 10 days, have yo u been in contact with someone who was confirmed or suspected to have Coronavirus/COVID-19? No / Unsure 03/18/2023 8:49 AM EDT documented as of this encounter Miscellaneous Notes * Result Encounter Note - Priyanka Orozco MD - 03/21/2023 6:02 AM EDT Please call the patient regarding her abnormal result low ferritin. Agreed to start iron supplementation. documented in this encounter Plan of Treatment Upcoming Encounters Date Type Department Care Team (Late st Contact Info) Description 12/18/2024 9:30 AM EST Clinical Support [facility] [address] [place] [address] 01/09/2025 2:00 PM EDT Clinical Support [facility] [address] Scheduled Orders Name Type Priority Associated Diagnoses Orde r Schedule Chlamydia/N. Gonorrhoeae RNA, TMA, Urogenitial Microbiology Routine Routine screening for STI (sexually transmitted infection) Expected: 03/21/2023 (Approximate), Expires: 03/21/2024 documented as of this encounter Procedures Procedure Name Priority Date/Time Associated Diagnosis Comments RPR TITER REFLEX Routine 03/31/2023 1:33 PM EDT VITAMIN B12/FOLATE, SERUM PANEL Routine 03/31/2023 1:33 PM EDT Fatigue, unspecified type Anemia due to vitamin B12 deficiency, unspecified B12 deficiency type TSH W/REFLEX TO FT4 Routine 03/31/2023 1 :33 PM EDT Fatigue, unspecified type RPR (DX) W/REFL TITER AND CONFIRMATORY TESTING Routine 03/31/2023 1:33 PM EDT Routine screening for STI (sexually transmitted infection) HEPATITIS B SURFACE AB IMMUNITY, QN Routine 03/31/2023 1:33 PM EDT Routine screening for STI (sexually transmitted infection) TREPONEMA PALLIDUM (FTA) ANTIBODY Routine 03/31/2023 1:33 PM EDT CBC WITH AUTO DIFFERENTIAL Routine 03/31/2023 1:33 PM EDT Fatigue, unspecified type Anemia due to vitamin B12 deficiency, unspecified B12 deficiency type HEPATITIS C AB W/REFL TO HCV RNA, QN, PCR Routine 03/31/2023 1:33 PM EDT Routine screening for STI (sexually transmitted infection) IRON AND TOTAL IRON BINDING CAPACITY Routine 03/31/2023 1:33 PM EDT Fatigue, unspecified type HEPATITIS B CORE AB TOTAL Routine 03/31/2023 1:33 PM EDT Routine screening for STI (sexually transmitted infection) HIV 1/2 ANTIGEN/ANTIBODY, FOURTH GENERATION W/RFL Routine 03/31/2023 1:33 PM EDT Routine screening for STI (sexually transmitted infection) HEPATITIS B SURFACE ANTIGEN W/REFL CONFIRM Routine 03/31/2023 1:33 PM EDT Routine screening for STI (sexually transmitted infection) HEMOGLOBIN A1C Routine 03/31/2023 1:33 PM EDT Fatigue, unspecified type FERRITIN Routine 03/31/2023 1:33 PM EDT Fatigue, unspecified type COMPREHENSIVE METABOLIC PANEL Routine 03/31/2023 1:33 PM EDT Fatigue, unspecified type Anemia due to vitamin B12 deficiency, unspecified B12 deficiency type documented in this encounter Results * Treponema Pallidum (FTA) Antibody (FTA-ABS) (03/31/2023 1:33 PM EDT) FTA-ABS Nonreactive Nonreactive [facility] Comment: The FTA-ABS is a treponemal assay that is intended to be used with other tests (e.g., RPR) as part of a diagnostic algorithm in the diagnosis of syphilis. 03/31/2023 1:33 PM EDT 03/31/2023 1:34 PM EDT Narrative [facility] - 04/07/2023 7:14 PM EDT FASTING:NO FASTING: NO us Priyanka Orozco MD LAB BLOOD ORDERABLES Final Resul t [facility] [address], [place] [address] [facility] [address] [place] [address] * (ABNORMAL) RPR TITER REFLEX (03/31/2023 1:33 PM EDT) RPR Titer 1:1(H) [facility] [place] [facility] 03/31/2023 1:33 PM EDT 03/31/2023 1:34 PM EDT Narrative [facility] - 04/07/2023 7:14 PM EDT FASTING:NO FASTING: NO Priyanka Orozco MD LAB BLOOD ORDERABLES Final Resul t Performing Organization Address [facility]/ZIP Co de Phone Number FP Complete [address] [place] [address], [place] [address] [facility] [place] [facility] [address] [place] [phone] * (ABNORMAL) RPR (Diagnosis) with Reflex to Titer??and Confirmatory Testing (03/31/2023 1:33 PM EDT) Pathologist [facility] RPR (DX) w/Refl Titer and Confirmatory Testing REACTIVE( A) NON-REACT KARLI [facility] [place] [employer] 03/31/2023 1:33 PM EDT 03/31/2023 1:34 PM EDT Narrative [facility] - 04/07/2023 7:14 PM EDT FASTING:NO FASTING: NO Priyanka Orozco MD LAB BLOOD ORDERABLES Final Resul t Performing Organization Address City/[facility]/ZIP Co de Phone Number [address], [facility] [place] [place] [address] [facility] [place] [facility] [address] [place] [phone] * HIV-1/2 Antigen and Antibodies, Fourth Generation, with Reflexes (03/31/2023 1:33 PM EDT) Pathologist [facility] HIV Antigen/Antibody, 4th Generation NON-REAC TIVE NON-REAC TIVE [facility] [place] [employer] Comment: HIV-1 antigen and HIV-1/HIV-2 antibodies were [...] ?? For additional information please refer to http://[employer]/faq/ENH945 (This link is being provided for informational/ educational purposes only.) The performance of this assay has not been clinically validated in patients less than 2 years old. Blood Venous blood specimen / Unknown 03/31/2023 1:33 PM EDT 03/31/2023 1:34 PM EDT Narrative [facility] - 04/07/2023 7:14 PM EDT FASTING:NO FASTING: NO us Priyanka Orozco MD LAB BLOOD ORDERABLES Final Resul t [facility] [address], [place] [address] [facility] [place] [employer] [address] [place] [address] * Hepatitis C Antibody with Reflex to HCV, RNA, Quantitative, Real-Time PCR (03/31/2023 1:33 PM EDT) Hepatitis C Antibody NON-REACT KARLI NON-REACT KARLI [facility] [place] [facility] Index 0.08 <1.00 [facility] [place] [facility] Comment: HCV antibody was non-reactive. There is no laboratory evidence of HCV infection. In most cases, no further action is required. However, if recent HCV exposure is suspected, a test for HCV RNA (test code 72027) is suggested. For additional information please refer to http://[employer]/faq/TRO88u8 (This link is being provided for informational/ educational purposes only.) Blood Venous blood specimen / Unknown 03/31/2023 1:33 PM EDT 03/31/2023 1:34 PM EDT Narrative [facility] - 04/07/2023 7:14 PM EDT FASTING:NO FASTING: NO Priyanka Orozco MD LAB BLOOD ORDERABLES Final Resul t Performing Organization Address [facility]/ZIP Co de Phone Number [address], [place] [address] [facility] [place] [facility] [address] [place] [phone] * Hepatitis B Surface Antigen with Reflex Confirmation (03/31/2023 1:33 PM EDT) Hepatitis B Surface Ag NON-REACT KARLI NON-REACT KARLI [facility] [place] [employer] Blood Venous blood specimen / Unknown 03/31/2023 1:33 PM EDT 03/31/2023 1:34 PM EDT [facility] FP Complete - 04/07/2023 7:14 PM EDT FASTING:NO FASTING: NO Result [facility] Priyanka Orozco MD LAB BLOOD ORDERABLES Final Resul t Performing Organization Address [facility] de Phone Number [address], [place] [address] [facility] [place] [facility] [address] [place] [phone] * Hepatitis B Surface Antibody Immunity, Quantitative (03/31/2023 1:33 PM EDT) Hepatitis B Surface Antibody Immunity, QN 12 > OR = 10 mIU/mL [facility] [place] [employer] Comment: PATIENT HAS IMMUNITY TO HEPATITIS B VIRUS. For additional information, please refer to http://education.[employer]/faq/HDF940 (This link is being provided for informational/ educational purposes only). Blood 03/31/2023 1:33 PM EDT 03/31/2023 1:34 PM EDT Narrative [facility] - 04/07/2023 7:14 PM EDT FASTING:NO FASTING: NO Priyanka Orozco MD LAB BLOOD ORDERABLES Final Resul t Performing Organization Address [facility] de Phone Number [facility] [address] [place] [address], [facility] [place] [place] [address] [facility] [address] [place] [address] * Hepatitis B Core Antibody, Total (03/31/2023 1:33 PM EDT) Hepatitis B Core Antibody Total NON-REACT KARLI NON-REACT KARLI [facility] [place] [employer] Blood Venous blood specimen / Unknown 03/31/2023 1:33 PM EDT 03/31/2023 1:34 PM EDT Narrative [facility] - 04/07/2023 7:14 PM EDT FASTING:NO FASTING: NO Priyanka Orozco MD LAB BLOOD ORDERABLES Final Resul t Performing Organization Address [facility] de Phone Number [facility] [address], [facility] [place] [place] [address] [facility] [address] * TSH W/Reflex to FT4 (03/31/2023 1:33 PM EDT) TSH w/Reflex to FT4 0.90 mIU/L [facility] Comment: ?Reference Range ?> or = 20 Years ??0.40-4.50 ? Ranges ?First trimester ?0.26-2.66 ?Second trimester ?? 0.55-2.73 ?Third trimester ?0.43-2.91 Blood 03/31/2023 1:33 PM EDT 03/31/2023 1:34 PM EDT Narrative [facility] - 04/07/2023 7:14 PM EDT FASTING:NO FASTING: NO Priyanka Orozco MD LAB BLOOD ORDERABLES Final Resul t Performing Organization Address [facility] Co de Phone Number [facility] [address], [facility] [place] [place] [address] [facility] [place] [facility] [address] [place] [address] * Hemoglobin A1c (03/31/2023 1:33 PM EDT) Pathologist [facility] Hemoglobin A1c 5.2 <5.7 % of total Hgb [facility] [place] [employer] Comment: For the purpose of screening for the presence of diabetes: <5.7% ? Consistent with the absence of diabetes 5.7-6.4% ?Consistent with increased risk for diabetes ?(prediabetes) > or =6.5% ??Consistent with diabetes This assay result is consistent with a decreased risk of diabetes. Currently, no consensus exists regarding use of hemoglobin A1c for diagnosis of diabetes in children. According to [place] Diabetes Association (ADA) guidelines, hemoglobin A1c <7.0% represents optimal control in non- diabetic patients. Different metrics may apply to specific patient populations. Standards of Medical Care in Diabetes(ADA). ?? Blood Venous blood specimen / Unknown 03/31/2023 1:33 PM EDT 03/31/2023 1:34 PM EDT Narrative [facility] - 04/07/2023 7:14 PM EDT FASTING:NO FASTING: NO Priyanka Orozco MD LAB BLOOD ORDERABLES Final Resul t Performing Organization Address City/[facility]/ZIP Co de Phone Number [facility] [address], [facility] [place] [place] [address] [facility] [place] [employer] [address] [place] [address] * (ABNORMAL) CBC auto differential (03/31/2023 1:33 PM EDT) Pathologist [facility] White Blood Cell Count 6.6 3.8 - 10.8 Thousand/ uL [facility] [place] [facility] Red Blood Cell Count 4.61 3.80 - 5.10 Million/u L [facility] [place] [facility] Hemoglobin 13.0 11.7 - 15.5 g/dL [facility] [place] [facility] Hematocrit 39.4 35.0 - 45.0 % [facility] [place] [facility] MCV 85.5 80.0 - 100.0 fL [facility] [place] [facility] MCH 28.2 27.0 - 33.0 pg [facility] [place] [facility] MCHC 33.0 32.0 - 36.0 g/dL [facility] [place] [facility] RDW 13.7 11.0 - 15.0 % [facility] [place] [facility] Platelet Count 411(H) 140 - 400 Thousand/ uL [facility] [place] [employer] MPV 9.9 7.5 - 12.5 fL [facility] [place] [employer] Absolute Neutrophils 3,478 1,500 - 7,800 cells/uL [facility] [place] [facility] [facility] Absolute Lymphocytes 2,567 850 - 3,900 cells/uL [facility] [place] [facility] Absolute Monocytes 422 200 - 950 cells/uL [facility] [place] [facility] [facility] Absolute Eosinophils 92 15 - 500 cells/uL [facility] [place] [employer] [facility] Absolute Basophils 40 0 - 200 cells/uL [facility] [place] [employer] [facility] Neutrophils 52.7 % [facility] [place] [employer] Lymphocytes 38.9 % [facility] [place] [employer] [facility] Monocytes 6.4 % [facility] [place] [employer] Eosinophils 1.4 % [facility] [place] [employer] Basophils 0.6 % [facility] [place] [employer] [facility] Blood Venous blood specimen / Unknown 03/31/2023 1:33 PM EDT 03/31/2023 1:34 PM EDT Narrative [facility] - 04/07/2023 7:14 PM EDT FASTING:NO FASTING: NO us Priyanka Orozco MD LAB BLOOD ORDERABLES Final Resul t [facility] [address], [place] [address] [facility] [place] [employer] [facility] [address] [place] [address] * Comprehensive Metabolic Panel (03/31/2023 1:33 PM EDT) Glucose 102 65 - 139 mg/dL [facility] [place] [employer] Comment: ? Non-fasting reference interval Urea Nitrogen (BUN) 11 7 - 25 mg/dL [facility] [place] [employer] Creatinine, Serum 0.72 0.50 - 0.97 mg/dL [facility] [place] [facility] eGFR 114 > OR = 60 mL/min/1 .73m2 [facility] [place] [employer] Comment: The eGFR is based on the CKD-EPI 2020 equation. To calculate the new eGFR from a previous Creatinine or Cystatin C result, go to https://www.kidney.org/professionals/ kdoqi/gfr%5Fcalculator BUN/Creatinine Ratio NOT APPLICABLE 6 - (calc) [facility] [place] [employer] Sodium 138 135 - 146 mmol/L [facility] [place] [facility] Potassium 4.1 3.5 - 5.3 mmol/L [facility] [place] [facility] Chloride 101 98 - 110 mmol/L [facility] [place] [employer] Carbon Dioxide 30 20 - 32 mmol/L [facility] [place] [facility] Calcium 9.4 8.6 - 10.2 mg/dL [facility] [place] [facility] Protein, Total 7.5 6.1 - 8.1 g/dL [facility] [place] [facility] Albumin 4.4 3.6 - 5.1 g/dL [facility] [place] [facility] Globulin 3.1 1.9 - 3.7 g/dL (calc) [facility] [place] [employer] Albumin/Globul in Ratio 1.4 1.0 - 2.5 (calc) [facility] [place] [facility] Bilirubin, Total 0.3 0.2 - 1.2 mg/dL [facility] [place] [facility] Alkaline Phosphatase 67 31 - 125 U/L [facility] [place] [facility] AST 17 10 - 30 U/L [facility] [place] [facility] ALT 22 6 - 29 U/L [facility] [place] [facility] Blood Venous blood specimen / Unknown 03/31/2023 1:33 PM EDT 03/31/2023 1:34 PM EDT Narrative [facility] - 04/07/2023 7:14 PM EDT FASTING:NO FASTING: NO Priyanka Orozco MD LAB BLOOD ORDERABLES Final Resul t Performing Organization Address [facility] de Phone Number [facility] [address], [facility] [place] [place] [address] [facility] [place] [employer] [address] [place] [address] * Vitamin B12/Folate, Serum Panel (03/31/2023 1:33 PM EDT) Vitamin B12 715 200 - 1,100 pg/mL [facility] [place] [employer] Folate, Serum 21.4 ng/mL [facility] [place] [employer] Comment: ? Reference Range ? Low: ? <3.4 ? Borderline: ?3.4-5.4 ? Normal: ?>5.4 03/31/2023 1:33 PM EDT 03/31/2023 1:34 PM EDT Narrative [facility] - 04/07/2023 7:14 PM EDT FASTING:NO FASTING: NO Priyanka Orozco MD LAB BLOOD ORDERABLES Final Resul t Performing Organization Address [facility]/ZIP Co de Phone Number [facility] [address], [place] [address] [facility] [place] [employer] [address] [place] [address] * (ABNORMAL) Iron And Total Iron Binding Capacity (03/31/2023 1:33 PM EDT) Pathologist [facility] Iron, Total 50 40 - 190 mcg/dL [facility] [place] [facility] Iron Binding Capacity 441 250 - 450 mcg/dL (calc) [facility] [place] [employer] [facility] % Saturation 11(L) 16 - 45 % (calc) [facility] [place] [employer] [facility] Blood Venous blood specimen / Unknown 03/31/2023 1:33 PM EDT 03/31/2023 1:34 PM EDT Narrative [facility] - 04/07/2023 7:14 PM EDT FASTING:NO FASTING: NO Priyanka Orozco MD LAB BLOOD ORDERABLES Final Resul t Performing Organization Address [facility] de Phone Number [address] [address] [facility] [place] [facility] [address] [place] [address] * (ABNORMAL) Ferritin (03/31/2023 1:33 PM EDT) [facility] Ferritin 11(L) 16 - 154 ng/mL [facility] [place] [employer] [facility] Blood Venous blood specimen / Unknown 03/31/2023 1:33 PM EDT 03/31/2023 1:34 PM EDT Narrative [facility] - 04/07/2023 7:14 PM EDT FASTING:NO FASTING: NO Priyanka Orozco MD LAB BLOOD ORDERABLES Final Resul t Performing Organization Address [facility] de Phone Number [address] [address] [facility] [place] [facility] [address] [place] [address] documented in this encounter Visit Diagnoses Diagnosis Fatigue, unspecified type- Primary Anemia due to vitamin B12 deficiency, unspecified B12 deficiency type Routine screening for STI (sexually transmitted infection) Screening examination for venereal disease documented in this encounter Care Teams Picture Enlarger Relationship Specialty Start Date End Date Priyanka Orozco MD [address] [place] [address] PCP - General Family Medicine 11/25/21 documented as of this encounter
--- OUTSIDE RECORDS SUMMARY | 2024-11-28 15:13 | XMS_ITS | Encounter Summary ---
Author Organization [employer] [facility] Address [address] [place] [address] 7t h Floor [place] [id number] Care Team Providers Care Communication Arts Lecturer Name Role Phone Priyanka Orozco MD Primary Care Provider [phone] Encounter Details Date Type Department Care Team (Latest Contact Info) Description 12/12/2020 Abstract [facility] CONVERSIONS Dental, Provider, DDS Social History [...] Description 12/18/2024 9:30 AM EST Clinical Support [facility] MEDICINE [address] [place] [address] 01/09/2025 2:00 PM EDT Clinical Support [facility] MED[facility]INE [address] [place] [phone] documented as of this encounter Visit Diagnoses Not on filedocumented in this encounter Care Teams Communication Arts Lecturer Relationship Specialty Start Date End Date Priyanka Orozco MD [address] [place] [address] PCP - General Family Medicine 11/25/21 documented as of this encounter
--- OUTSIDE RECORDS SUMMARY | 2024-11-28 15:13 | XMS_ITS | Encounter Summary ---
Author Organization [facility] Address [address] [place] [address] 7t h Floor [place] [phone] Care Team Providers Care Debrander Name Role Phone Priyanka Orozco MD Primary Care Provider [phone] Encounter Details Date Type Department Care Team (Latest Contact Info) Description 11/20/2024 Travel Social History Tobacco Use Types Packs/Day Years [...] 12/18/2024 9:30 AM EST Clinical Support [address] [address] 01/09/2025 2:00 PM EDT Clinical Support [address] [address] documented as of this encounter Visit Diagnoses Not on filedocumented in this encounter Care Teams Debrander Relationship Specialty Start Date End Date Priyanka Orozco MD [address] [place] [address] PCP - General Family Medicine 11/25/21 documented as of this encounter
--- OUTSIDE RECORDS SUMMARY | 2024-11-28 15:13 | XMS_ITS | Encounter Summary ---
Author Organization [employer] Address [address] [place] [address] Care Team Providers Care Renal Technician Name Role Phone Priyanka Orozco MD Primary Care Provider [phone] Reason for Referral * Consultation (Routine) - Closed Specialty Diagnoses / Procedures Referred By Feliz cabezas Referred To Contact Obstetrics and Gynecology Diagnoses Less than 8 weeks gestation of Priyanka Orozco MD [address] [place] [address] Phone: tel: fax: [address] Phone: tel: fax: Referral ID Status Reason Start Date Expiration Date V isits Requested Visits Authorized [id number] Closed Specialty Services Required 12/08/2023 12/07/2024 30 30 Encounter Details Date Type Department Care Team (Late st Contact Info) Description 12/01/2023 Orders Only [facility] MEDICINE [address] [place], [place] [phone] Priyanka Orozco MD [address] [place], [place] [phone] Less than 8 weeks gestation of (Primary Dx) Social History Tobacco Use Types [...] Description 12/18/2024 9:30 AM EST Clinical Support [address] [address] 01/09/2025 2:00 PM EDT Clinical Support [address] [address] Scheduled Referrals Name Type Priority Associated Diagnoses Order Schedule Referral to Obstetrics / Gynecology Outpatient Referral Routine Less than 8 weeks gestation of Expected: 12/08/2023 (Approximate), Expires: 12/08/2024 documented as of this encounter Visit Diagnoses Diagnosis Less than 8 weeks gestation of - Primary documented in this encounter Care Teams Renal Technician Relationship Specialty Start Date End Date Priyanka Orozco MD [address] [place] [phone] PCP - General Family Medicine 11/25/21 documented as of this encounter
--- OUTSIDE RECORDS SUMMARY | 2024-11-28 15:13 | XMS_ITS | Clinical Summary ---
Author Organization [facility] Address [address] [place] [address] Phone Care Team Providers Care Warehouse Shipping Receiving Clerk Name Role Phone Priyanka Orozco MD Primary Care Provider [phone] Allergies Active Allergy Reactions Criticality Noted Date Comments Penicillins Hives Low 08/21/2024 Medications No known medications Active Problems No known active problems Social History Tobacco Use Types Packs/Day Years Used Date Smoking Tobacco: Never Smokeless Tobacco: Never Tobacco Cessation:Counseling Given: No Alcohol Use Standard Drinks/Week Comments Never 0 (1 standard drink = 0.6 oz pur e alcohol) Comments No Sex and Gender Information Value Date Recorded Sex Assigned at Not on file Legal Sex Female 2:58 AM EST Gender Identity Not on file Sexual Orientation Not on file Obstetrics History Last Filed Vital Signs Vital Sign Reading Time Taken Comments Blood Pressure 99/76 08/21/2024 11:30 PM EST Pulse 88 08/21/2024 11:30 PM EST Temperature 37.1 ??C (98.8 ??F) 08/21/2024 11:[address] Respiratory Rate 18 08/21/2024 8:41 PM EST Oxygen Saturation 99% 08/21/2024 11:30 PM EST Inhaled Oxygen Concentration - - Weight 83.5 kg (184 lb) 08/21/2024 8:41 PM EST Height 162.6 cm (5' 4 ) 08/21/2024 8:41 PM EST Body Mass Index 31.58 08/21/2024 8:41 PM EST Plan of Treatment Health Maintenance Due Date Last Done Comments Cervical Cancer Screening: Pap Smear 2011 Depression Screening 09/19/2022 Social Influencers of Health Screening 09/19/2022 COVID-19 Vaccine ( season) 2024 10/02/2021, 11/27/2020, 10/30/2020 Influenza Vaccine (#1) 2024 , 10/02/2021, 07/02/2020, Additional history exists DTaP,Tdap,and Td Vaccines (9 - Td or Tdap) 06/24/2032 06/24/2022, 07/05/2017, 10/22/2008, Additional history exists IPV Vaccines Completed 12/30/1994, 12/15, 02/27/1991, Additional history exists Meningococcal ACWY Vaccine Aged Out 10/22/2008 N o longer eligible based on patient's age to complete this topic HPV Vaccines Completed 01/14/2011, 10/2008, 02/14/2009 Hepatitis A Vaccines Aged Out 09/18/2013, 01/13/20 13 No longer eligible based on patient's age to complete this topic Hepatitis B Vaccines Completed 04/12/2017, 02/08/2017, 02/14/2009, Additional history exists MMR Vaccines Completed 04/12/2017, 01/16, 01/01/1994, Additional history exists Varicella Vaccines Aged Out 01/02/2019, 02/05/2009 No longer eligible based on patient's age to complete this topic HIV Screening Completed 03/31/2023 Hepatitis C Screening Completed 03/31/2023 HIB Vaccines Aged Out No longer eligi ble based on patient's age to complete this topic Pneumococcal Vaccine: Pediatrics (0 to 5 Years) and At-Risk Patients (6 to 64 Years) Aged Out No longer eligible based on patient's age to complete this topic RSV Immunization Patients Under 20 months Aged Out No longer eligible based on patient's age to complete this topic Insurance MEDICAID - [place] Care Teams Warehouse Shipping Receiving Clerk Relationship Specialty Start Date End Date Priyanka Orozco MD [address] [place] [phone] PCP - General Family Medicine 08/21/24
--- OUTSIDE RECORDS SUMMARY | 2024-11-28 15:13 | XMS_ITS | Encounter Summary ---
Author Organization [employer] [facility] Address [address] [place] [address] [address] [place] [id number] Care Team Providers Care Sterilization Technician Name Role Phone Priyanka Orozco MD Primary Care Provider [phone] Encounter Details Date Type Department Care Team (Late Contact Info) Description 03/06/2024 Orders Only [facility] [address] [place] [id number] Priyanka Orozco MD [address] [place] [phone] Social History Tobacco Use Types Packs/Day Years [...] Description 12/18/2024 9:30 AM EST Clinical Support [address] [id number] 01/09/2025 2:00 PM EDT Clinical Support [address] [phone] documented as of this encounter Visit Diagnoses Not on filedocumented in this encounter Care Teams Sterilization Technician Relationship Specialty Start Date End Date Priyanka Orozco MD [address] [place] [phone] PCP - General Family Medicine 11/25/21 documented as of this encounter
--- OUTSIDE RECORDS SUMMARY | 2024-11-28 15:13 | XMS_ITS | Encounter Summary ---
Author Organization [employer] Address [address] [facility] [address] [place] [address] Care Team Providers Care Photographer'S Assistant Name Role Phone Priyanka Orozco MD Primary Care Provider [phone] Reason for Visit * Reason Comments B12 Injection Encounter Details Date Type Department Care Team (Latest Contact Info) Description 11/20/2024 10:00 AM EST Clinical Support [facility] [address] [place] [address] [phone] Heather Razo RN [address], [place] [phone] Anemia due to vitamin B12 deficiency, unspecified B12 deficiency type Social History Tobacco Use Types Packs/Day Years [...] AM EDT documented as of this encounter Progress Notes * Heather Razo RN - 11/20/2024 10:00 AM EST S: Pt here for nurse visit B12 injection, today B12 standing order verified (12/27/2023) Pt denies any difficulties with previous injection received. O: Cyanocobalamin 1,000mcg/ML, 1mL given on left deltoid muscle, pt tolerated well. Pt observed for 15 minutes, no adverse reaction. A: Vitamin B12 Deficiency P: Pt may go home and return for next B12 injection. Next B12 appt scheduled for 12/18/2024 with [facility] nurses. Advised to monitor injection site for any increased redness or swelling and follow up with PCP as needed. Pt agrees with plan and verbalized understanding Heather Razo RN documented in this encounter Plan of Treatment Upcoming Encounters Date Type Department Care Team (Late st Contact Info) Description 12/18/2024 9:30 AM EST Clinical Support [address] [address] 01/09/2025 2:00 PM EDT Clinical Support [address] [phone] documented as of this encounter Visit Diagnoses Diagnosis Anemia due to vitamin B12 deficiency, unspecified B12 deficiency type documented in this encounter Administered Medications Active Administered Medications - up to 3 most recent administrations Medication Order MAR Action Action Date Dose Rate Site cyanocobalamin (Vitamin B-12) injection 1,000 mcg 1,000 mcg, Intramuscular, Every 30 days, First dose on Tue12/27/23 at 1545, For 12 dosesIndications:Anemia due to vitamin B12 deficiency, unspecified B12 deficiency type Given 11/20/2024 9:31 AM EST 1,000 mcg Left Deltoid Given 08/23/2024 9:00 AM EST 1,000 mcg Le ft Deltoid Given 07/23/2024 11:44 AM EDT 1,000 mcg L eft Deltoid documented in this encounter Care Teams Photographer'S Assistant Relationship Specialty Start Date End Date Priyanka Orozco MD [address] [place] [id number] PCP - General Family Medicine 11/25/21 documented as of this encounter
== END 2024-11-28 13:50 | disposition home or self-care (01) ==
LOC: HO.MAMMO 13:49
PROVIDERS: Visit Provider Family Medicine
DX: N63.15 Unspecified lump in the right breast, overlapping quadrants (principal)
CPT/HCPCS: 76642; 77062; 77066

== ENCOUNTER → 2024-11-28 14:00 | Outpatient (BNV) | payer MEDICAID, SELFPAY | PROVIDERS: Visit Provider Internal Medicine | DX: N63.11 Unspecified lump in the right breast, upper outer quadrant (principal); N64.4 Mastodynia | CPT/HCPCS: 76642; 77062; 77066 ==

== ENCOUNTER 2025-01-15 17:26 | Outpatient (REF) | payer MEDICAID, SELFPAY ==
--- OUTSIDE RECORDS SUMMARY | 2025-01-15 19:05 | XMS_ITS | Clinical Summary ---
Author Organization [employer] Address [address] [facility] [address] [facility] [address] [place] [address] Care Team Providers Care Senior Asset Manager Name Role Phone Priyanka Orozco MD Primary Care Provider [phone] Allergies Active Allergy Reactions Criticality Noted Date Comments Penicillins 07/12/2014 Other reaction(s): Hives/Skin Rash Medications * This document contains information received from the source organization and may not represent a complete record from that organization. cyclobenzaprine (Flexeril) 5 MG tabletIndications :Neck muscle [...] per day. 90 tablet 3 03/06/20 24 025 Active fluticasone (Flonase Allergy Relief) 50 MCG/ACT nasal spray Administer 1 spray into each nostril Once per day. Shake gently. Before first use, prime pump. After use, clean tip and replace cap. 16 g 12 06/01/20 24 025 Active ondansetron (Zofran) 4 MG tablet Take 1 tablet (4 mg) by mouth every 8 (eight) hours if needed for nausea or vomiting. 12 tablet 06/29/20 24 Active Misc. Devices (Pulse Oximeter For Finger) misc 1 each 2 times daily. 1 each 06/29/20 24 Active docusate sodium (Colace) 100 MG capsuleIndication s:Constipation, unspecified constipation type Take 1 capsule (100 mg) by mouth 2 times daily. 60 capsule 5 08/01/20 Active ibuprofen 600 MG tabletIndications :Acute nonintractable headache, unspecified headache type,Malaise,Post cramps Take 1 tablet (600 mg) by mouth every 8 (eight) hours if needed for mild pain. 50 tablet 1 08/01/20 Active Acetaminophen 500 MG capsuleIndication s:Acute nonintractable [...] needed for allergies. 20 tablet 08/10/20 24 025 Active cyanocobalamin (Vitamin B-12) 1000 MCG/ML injectionIndicati ons:Vitamin B12 deficiency INJECT 1 ML INTRAMUSCULARLY ONCE EVERY MONTH 3 mL 3 10/15/20 24 Active escitalopram (Lexapro) 5 MG tablet Take 1 tablet by mouth once daily for 10 days, then increase to 2 tablets by mouth daily 180 tablet 1 12/13/19 Active cefuroxime (Ceftin) 250 MG tablet Take 1 tablet (250 mg) by mouth 2 times daily for 7 days. 14 tablet 01/16/20 25 025 Active Hospital, Clinic, or Other Facility Administered Medication Ordered Dose Route Frequency Start Date End Date Status cyanocobalamin (Vitamin B-12) injection 1,000 mcgIndications:Anemia due to vitamin B12 deficiency, unspecified B12 deficiency type 1000 mcg IM Every 30 days 01/16/2025 01/11/2026 Active medroxyPROGESTERone (Depo-Provera) injection 150 mgIndications:Depo-Pro vera contraceptive status 150 mg IM Every 3 months 01/15/2025 01/10/2026 Active cyanocobalamin (Vitamin B-12) injection 1,000 mcgIndications:Anemia due to vitamin B12 deficiency, unspecified B12 deficiency type 1000 mcg IM Every 30 days 12/27/2023 12/21/2024 Ended Active Problems Problem Noted Date Diagnosed Date depression 01/01/2025 Assessment & Plan (01/02/2025 12:40 PM EDT): - Pt had child in 2023 - started on escitalopram 10 mg daily. Since 2024 - Referred to behavioral health service. Pt will contact behavioral health services to schedule consulting appointment Chronic constipation 01/01/2025 Rash due to allergy 08/10/2024 Assessment & Plan (08/10/2024 11:44 AM EDT): Try to identify and avoid trigger I will prescribe loratadine I will prescribe prednisone only 20mg once a day (do not use breast milk after taking medication (use only once a day formula for baby) Triamcinolone locally BID if needed I will refer her to payroll specialist Neck pain 10/06/2023 Assessment & Plan [...] Will screen for IG A deficiency Anxiety and depression 02/22/2023 Assessment & Plan (01/02/2025 12:39 PM EDT): - with aerophobia - previously prescribed sertraline, but not taking everyday - started on escitalopram 10 mg daily - Referred to behavioral health service. Pt will contact behavioral health services to schedule consulting appointment Assessment & Plan (10/06/2023 8:59 AM EST): [...] flight Allergic rhinitis 02/22/2023 Assessment & Plan (01/02/2025 12:40 PM EDT): - continue loratadine and montelukast - referred to payroll specialist for allergy test and immunotherapy. Assessment & Plan (10/06/2023 9:00 AM EST): - continue loratadine and montelukast - referred to payroll specialist for allergy test and immunotherapy. Assessment & Plan (02/22/2023 5:17 AM EDT): - continue loratadine and montelukast - refer to payroll specialist for allergy test and immunotherapy. Dental plaque 01/04/2023 Open restorationist margins 01/04/2023 Acne vulgaris 12/14/2022 Assessment & Plan (05/27/2023 6:17 AM EDT): - seen in Derm clinic - prescribed spironolactone - continue treatment - combined OCP will be beneficial for acne Assessment & Plan (02/22/2023 5:14 AM EDT): - seen in Derm clinic - prescribed spironolactone - continue treatment Recurrent urinary tract infection 12/14/2022 Assessment & Plan (01/06/2025 7:54 AM EDT): - previously following with urologist, last seen in Oct 2022 - Rx methanamine for UTI prophylaxis, stopped when she became - most recent UTI on 08/01/24. E.coli; initially prescribed nitrofurantoin, which was changed to cefuroxime. Patient did not complete cefuroxime. Patient was advised to complete cefuroxime treatment. 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 Date Type Department Care Team Description 01/15/2025 9:30 AM EDT Clinical Support [address] [address] Heather Razo RN Anemia due to vitamin B12 deficiency, unspecified B12 deficiency type; Depo-Provera contraceptive status 01/15/2025 Orders Only [address] [address] Priyanka Orozco MD Dysuria (Primary Dx) 01/15/2025 Orders Only [address] [address] Priyanka Orozco MD 01/15/2025 Orders Only [address] [address] Heather Razo, MARLENA Anemia due to vitamin B12 deficiency, unspecified B12 deficiency type; Depo-Provera contraceptive status 01/02/2025 11:15 AM EDT Telemedicine [address] [address] Priyanka Orozco MD depression (Primary Dx); Recurrent urinary tract infection; Anxiety and depression; Allergic rhinitis, unspecified seasonality, unspecified trigger; Anemia due to vitamin B12 deficiency, unspecified B12 deficiency type 01/02/2025 Travel 12/31/[address] [place] [address] Priyanka Orozco MD chart prep 12/28/2024 Population Health Risk Score [facility] (C3) Department [address] [place] [phone] Provider, Population Health Generic 12/18/2024 9:30 AM EST Clinical Support [facility] [place] [address] Heather Razo RN Anemia due to vitamin B12 deficiency, unspecified B12 deficiency type 12/18/2024 Travel 12/13/2024 Telephone [facility] [place] [address] Priyanka Orozco MD 11/29/2024 Orders Only [facility] [place] [address] Priyanka Orozco MD Anemia due to vitamin B12 deficiency, unspecified B12 deficiency type (Primary Dx); Fatigue, unspecified type; Overweight; Vitamin deficiency 11/20/2024 10:00 AM EST Clinical Support [facility] [place] [address] Heather Razo RN Anemia due to vitamin B12 deficiency, unspecified B12 deficiency type 11/20/2024 Travel 10/25/2024 Orders Only [facility] [place] [address] Priyanka Orozco MD Breast pain, right (Primary Dx); Breast lump on right side at 6 o'clock position 10/24/2024 2:00 PM EST Clinical Support [facility] [place] [address] Heather Razo, switchboard installer planning counseling 10/24/2024 Travel from Last 3 Months Immunizations Name Administration [...] = 0.6 oz pur e alcohol) Comments Unknown Sex and Gender Information Value [...] (185 lb 4 oz) 08/21/2024 9:50 AM ES T Height 162.6 cm (5' 4 ) 08/21/2024 9:50 AM EST Body Mass Index 31.8 08/21/2024 9:50 AM EST Plan of Treatment Upcoming Encounters Date Type Department Care Team (Late st Contact Info) Description 02/12/2025 10:00 AM EDT Clinical Support [facility] [address] [place] [address] 04/02/2025 10:00 AM EDT Clinical Support [address] [address] Health Maintenance Due Date Last Done Comments Depression Screening 1990 SDOH Screening 1990 Alcohol/Substance Use Screening 2002 Dental Oral Exam 07/08/2023 01/04/2023 Dental Prophylaxis 07/08/2023 01/04/2023 Dental X-Ray: Bitewings 01/06/2024 01/04/2023 COVID-19 Vaccine ( season) 2024 10/02/2021, 11/27/2020, 10/30/2020 Influenza Vaccine (#1) 2024 , 10/02/2021, 07/02/2020, Additional history exists Family Planning (PISQ) 08/07/2025 08/07/2024 Dental X-Ray: Full Mouth 01/05/2026 01/04/2023 Tobacco Screening 01/06/2026 01/06/2025 Cervical Cancer Screening 08/11/2026 HPV/Cotest 08/11/2026 08/11/2023 [...] complete this topic HPV Vaccines Completed 01/14/2011, 0710/2008, 02/14/2009 Hepatitis A Vaccines Aged Out 09/18/2013, [...] Procedure Name Priority Date/Time Associated Diagnosis Comments BI US BREAST LIMITED RIGHT Routine 11/28/2024 2:30 PM EST BI MAMMOGRAM DIAGNOSTIC TOMOSYNTHESIS BILATERAL Routine 11/28/2024 2:00 PM EST HEPATITIS C AB W/REFL TO HCV RNA, [...] 01/04/2023 8 :00 AM EDT Dental plaque INTRAORAL - COMPLETE SERIES OF RADIOGRAPHIC IMAGES Routine 01/04/2023 8:00 AM EDT Dental plaque from Last 3 Months or Most Recently Relevant to Health Maintenance Results * BI US Breast Limited Right (11/28/2024 2:30 PM EST) Anatomical Region Laterality Modality Breast Right Ultrasound 11/28/2024 2:30 PM EST Narrative 11/28/2024 5:32 PM EST ? [facility] ? [address] ?[place] [address] ? Ultrasound Report ? Signed ? Patient: Pamela Louie ?MR#: [id number] ?? [id number] ? : 1990 ?Acct:[id number] ? Age/Sex: 34 / F ?ADM Date: 11/28/24 ? Loc: HO.MAMMO ? Attending Dr: Priyanka Orozco MD ? Ordering Physician: Priyanka Orozco MD ?? Date of Service: 11/28/24 ?? Procedure(s): US breast RT limited mamm only ?? Accession Number(s): [id number] ? cc: Priyanka Orozco MD ? EXAMINATION: ?? MM DIAGNOSTIC DIGITAL BREAST TOMOSYNTHESIS, BILATERAL ?? Limited right breast ultrasound for palpable lump and pain. ?? CLINICAL INFORMATION: ? Right breast palpable lump and pain upper breast. ? COMPARISON: ?? Mammography: Baseline. ? TECHNIQUE: ?? Digital breast mammography with tomosynthesis is performed in both the ?? craniocaudal and mediolateral oblique views along with computer-aided ?? detection (CAD). ?? Limited right breast ultrasound. ? FINDINGS: ?? The breasts are heterogeneously dense, which may obscure small masses ?? (ACR BI-RADS breast composition Category c). ?? There are no significant masses, abnormal calcifications, or other ?? abnormalities. ? Targeted color Doppler ultrasound scanning in the area the patient's ?? pain and palpable lump in the upper breast from 9-3 o'clock ?? demonstrates normal fibroglandular breast tissue. There is no ?? sonographic abnormality. ? Results are provided to the patient at time of visit by the ?? technologist. ? US/US breast RT limited mamm only ?? IMPRESSION: ?? Right: ?? No mammographic or sonographic abnormality to account for the patient's ?? palpable lump and pain. Recommend clinical evaluation follow-up. ? Left: ?? Negative ? ASSESSMENT: ? BI-RADS BI-RADS 1 - Negative ? RECOMMENDATION: ?? 1 year F/U ? This patient's information was entered into a reminder system with a ?? target due date for their next mammogram. ? Electronically signed by: ??iKah Rodriguez DO ??11/28/2024 05:29 PM EST ? Dictated By: ?Kiah Rodriguez DO ? Signed By: ?<Electronically signed by Kiah Rodriguez, DO in OV> ? 11/28/241728 ? DD/ 1430 ? TD/TT: 11/28/24 1437 ? Photographer News: ? Procedure Note Donayakater, Image - 11/28/2024 [facility] [address] [place] [address] Ultrasound Report Signed Patient: Pamela Louie#: [id number] [id number] : 1990Acct:[id number] Age/Sex: 34 / FADM Date: 11/28/24 Loc: GUIO Attending Dr: Priyanka Orozco MD Ordering Physician: Priyanka Orozco MD Date of Service: 11/28/24 Procedure(s): US breast RT limited mamm only Accession Number(s): [id number] cc: Priyanka Orozco MD EXAMINATION: MM DIAGNOSTIC DIGITAL BREAST TOMOSYNTHESIS, BILATERAL Limited right breast ultrasound for palpable lump and pain. CLINICAL INFORMATION: Right breast palpable lump and pain upper breast. COMPARISON: Mammography: Baseline. TECHNIQUE: Digital breast mammography with tomosynthesis is performed in both the craniocaudal and mediolateral oblique views along with computer-aided detection (CAD). Limited right breast ultrasound. FINDINGS: The breasts are heterogeneously dense, which may obscure small masses (ACR BI-RADS breast composition Category c). There are no significant masses, abnormal calcifications, or other abnormalities. Targeted color Doppler ultrasound scanning in the area the patient's pain and palpable lump in the upper breast from 9-3 o'clock demonstrates normal fibroglandular breast tissue. There is no sonographic abnormality. Results are provided to the patient at time of visit by the technologist. US/US breast RT limited mamm only IMPRESSION: Right: No mammographic or sonographic abnormality to account for the patient's palpable lump and pain. Recommend clinical evaluation follow-up. Left: Negative ASSESSMENT: BI-RADS BI-RADS 1 - Negative RECOMMENDATION: 1 year F/U This patient's information was entered into a reminder system with a target due date for their next mammogram. Electronically signed by: Kiah Rodriguez DO 11/28/2024 05:29 PM EST Dictated By: Kiah Rodriguez DO Signed By: <Electronically signed by Kiah Rodriguez DO in OV> 11/28/24 1729 DD/ 1430 TD/TT: 11/28/24 1437 Photographer News: us Priyanka Orozco MD IMG US PROCEDURES Final Result * BI Mammogram Diagnostic Tomosynthesis Bilateral (11/28/2024 2:00 PM EST) Anatomical Region Laterality Modality Breast Bilateral Mammography 11/28/2024 2:00 PM EST Narrative 11/28/2024 5:32 PM EST ? [facility] [place] ? [address] ?[place] [address] ? Mammography Report ? Signed ? Patient: Liban,Pamela Felicia ?MR#: [id number] ?? [id number] ? : 1990 ?Acct:[id number] ? Age/Sex: 34 / F ?ADM Date: 02/12/25 ? Loc: HO.MAMMO ? Attending Dr: Priyanka Sakurai MD ? Ordering Physician: Priyanka Orozco MD ?Results: 1Negative ? Date of Service: 11/28/24 ?Follow Up: 1 Year From Orig ?? inal Mammogram ? Procedure(s): MM tomosynthesis diagnostic BI ?? Accession Number(s): [id number] ? cc: Priyanka Orozco MD ? EXAMINATION: ?? MM DIAGNOSTIC DIGITAL BREAST TOMOSYNTHESIS, BILATERAL ?? Limited right breast ultrasound for palpable lump and pain. ?? CLINICAL INFORMATION: ? Right breast palpable lump and pain upper breast. ? COMPARISON: ?? Mammography: Baseline. ? TECHNIQUE: ?? Digital breast mammography with tomosynthesis is performed in both the ?? craniocaudal and mediolateral oblique views along with computer-aided ?? detection (CAD). ?? Limited right breast ultrasound. ? FINDINGS: ?? The breasts are heterogeneously dense, which may obscure small masses ?? (ACR BI-RADS breast composition Category c). ?? There are no significant masses, abnormal calcifications, or other ?? abnormalities. ? Targeted color Doppler ultrasound scanning in the area the patient's ?? pain and palpable lump in the upper breast from 9-3 o'clock ?? demonstrates normal fibroglandular breast tissue. There is no ?? sonographic abnormality. ? Results are provided to the patient at time of visit by the ?? technologist. ? MM/MM tomosynthesis diagnostic BI ?? IMPRESSION: ?? Right: ?? No mammographic or sonographic abnormality to account for the patient's ?? palpable lump and pain. Recommend clinical evaluation follow-up. ? Left: ?? Negative ? ASSESSMENT: ? BI-RADS BI-RADS 1 - Negative ? RECOMMENDATION: ?? 1 year F/U ? This patient's information was entered into a reminder system with a ?? target due date for their next mammogram. ? Electronically signed by: ??Kiah Rodriguez DO ??11/28/2024 05:29 PM EST ?? RP ? Dictated By: ?Kiah Rodriguez DO ? Signed By: ?<Electronically signed by Kiah Rodriguez, DO in OV> ? 11/28/249 ? DD/ 1400 ? TD/TT: 11/28/24 1423 ? Photographer News: ? Procedure Note Donotuseinterpreter, Image - 11/28/2024 [facility] [address] [place] [address] Mammography Report Signed Patient: Pamela Louie#: [id number] 2660 : 1990Acct:[id number] Age/Sex: 34 / FADM Date: 11/28/24 Loc: MAMMO Attending Dr: Pryianka Orozco MD Ordering Physician: Priyanka Orozco MDResults: 1Negative Date of Service: 11/28/24Follow Up: 1 Year From [facility] Mammogram Procedure(s): MM tomosynthesis diagnostic BI Accession Number(s): [id number] cc: Priyanka Orozco MD EXAMINATION: MM DIAGNOSTIC DIGITAL BREAST TOMOSYNTHESIS, BILATERAL Limited right breast ultrasound for palpable lump and pain. CLINICAL INFORMATION: Right breast palpable lump and pain upper breast. COMPARISON: Mammography: Baseline. TECHNIQUE: Digital breast mammography with tomosynthesis is performed in both the craniocaudal and mediolateral oblique views along with computer-aided detection (CAD). Limited right breast ultrasound. FINDINGS: The breasts are heterogeneously dense, which may obscure small masses (ACR BI-RADS breast composition Category c). There are no significant masses, abnormal calcifications, or other abnormalities. Targeted color Doppler ultrasound scanning in the area the patient's pain and palpable lump in the upper breast from 9-3 o'clock demonstrates normal fibroglandular breast tissue. There is no sonographic abnormality. Results are provided to the patient at time of visit by the technologist. MM/MM tomosynthesis diagnostic BI IMPRESSION: Right: No mammographic or sonographic abnormality to account for the patient's palpable lump and pain. Recommend clinical evaluation follow-up. Left: Negative ASSESSMENT: BI-RADS BI-RADS 1 - Negative RECOMMENDATION: 1 year F/U This patient's information was entered into a reminder system with a target due date for their next mammogram. Electronically signed by: Kiah Rodriguez DO 11/28/2024 05:29 PM EST RP Dictated By: Kiah Rodriguez DO Signed By: <Electronically signed by Kiah Rodriguez DO in OV> 11/28/24 1729 DD/ 1400 TD/TT: 11/28/24 1423 Photographer News: Priyanka Orozco MD IMG BI PROCEDURES Final Result * Hepatitis C Antibody with Reflex to HCV, RNA, Quantitative, Real-Time PCR (08/21/2024 11:39 AM EST) Hepatitis C Antibody Nonreactive Nonreactive [facility] Comment:Antibodies to HCV no t detected; does not exclude early acuteHCV infection. Blood Venous blood specimen / Unknown 08/21/2024 11:39 AM EST 08/21/2024 1:19 PM EST Priyanka Orozco MD LAB BLOOD ORDERABLES Final Resul t [facility] [address] [place] [address] [phone] * Image-Guided Pap with Age-Based Screening??with CT/NG,??Trichomonas (08/11/2023 9:30 AM EDT) Trichomonas (NAAT) NOT DETECTED NOT DETECTED [facility] Comment:The analytical perfo rmance characteristics of thisassay have been determined by [facility] [facility]. Themodifications have not been cleared or approved bythe FDA. This assay has been validated pursuant to theCLIA regulations and is used for clinical purposes.For additional information, please refer tohttp://education.[employer]Leaf/faq/Trichomonastma(This link is being provided for information/educational purposes only.)THIS TEST WAS PERFORMED AT:[facility] [place] [phone] R DE LEÓN MD CTNG Ref Lab NOT DETECTED NOT DETECTED [facility] NG Ref Lab NOT DETECTED NOT DETECTED [facility] 08/11/2023 9:3 0 AM EDT 08/12/2023 6:30 AM EDT us Saritha Oro [facility] CYTOLOGY ORDERABLES F inal Result [facility] [address] [place] [address] [phone] * HPV mRNA E6/E7 w/Reflex to HPV Genotypes 16, 18/45 (08/11/2023 9:30 AM EDT) HPV nRNA E6/E7 Not Detected Not Detected [facility] Comment:Methodology: Transcr iption-Mediated AmplificationThis assay detects E6/E7 viral messenger RNA (mRNA) from 14high-risk HPV types (16,18,31,33,35,39,45,51,52,56,58,59,66,68).Cervical sources are required for HPV testing.If a vaginal source from a patient who has had atotal hysterectomy with removal of cervix wassubmitted, please contact the testing laboratoryfor alternative testing options.For additional information, please refer tohttp://education.[employer]/faq/XFZ634b7(This link if provided for information/educational purposes only.)THIS TEST WAS PERFORMED AT:[facility] [place] [phone] R DE LEÓN MD HPV mRNA E6/E7 [facility] HPV 16 RNA TNP [facility] HPV 18/45 RNA [facility] 08/11/2023 9:30 AM EDT 08/12/2023 6:30 AM EDT Saritha Oro CNM LAB CYTOLOGY ORDERABLES F inal Result Performing Organization Address [facility]/ZIP Co de Phone Number [facility] [address] [place] [address] [phone] * HIV-1/2 Antigen and Antibodies, Fourth Generation, with Reflexes (03/31/2023 1:33 PM EDT) Pathologist [facility] HIV Antigen/Antibody, 4th Generation NON-REAC TIVE NON-REAC TIVE [facility] Comment: HIV-1 antigen and HIV-1/HIV-2 antibodies were [...] ?? For additional information please refer to http://education.3Leaf/faq/FZL694 (This link is being provided for informational/ [...] ORDERABLES Final Resul t Performing Organization Address City/[facility]/ZIP Co de Phone Number [facility] [address], [place] [address] [facility] [place] [facility] [address] [place] [phone] from Last 3 Months or Most Recently Relevant to Health Maintenance Insurance [employer] [employer] * Guarantor: Pamela Louie Account Type Relation to Patient Date of Phone Billing Address Dental Self 1990 [address] [employer] [address] [employer] [employer] [address] [address] [place] [address] [facility] [employer] ADULT Care Teams Senior Asset Manager Relationship Specialty Start Date End Date Priyanka Orozco MD [address] [place] [address] PCP - General Family Medicine 11/25/21
--- OUTSIDE RECORDS SUMMARY | 2025-01-15 19:05 | XMS_ITS | Encounter Summary ---
Author Organization [employer] [facility] Address [address] [place] [address] 7t h Floor [place] [phone] Care Team Providers Care Science Analyst Name Role Phone Priyanka Orozco MD Primary Care Provider [phone] Encounter Details Date Type Department Care Team (Late Contact Info) Description 01/15/2025 Orders Only [facility] MEDIC[facility] [address] [place] [address] [phone] Priyanka Orozco MD [address] [place] [address] [phone] Social History Tobacco Use Types Packs/Day Years [...] Department Care Team (Late Contact Info) Description 02/12/2025 10:00 AM EDT Clinical Support [facility] [address] [place] [address] [phone] 04/02/2025 10:00 AM EDT Clinical Support [facility] [address] [place] [address] [phone] documented as of this encounter Visit Diagnoses Not on filedocumented in this encounter Care Teams Science Analyst Relationship Specialty Start Date End Date Priyanka Orozco MD [address] [place] [address] [phone] PCP - General Family Medicine 11/25/21 documented as of this encounter
--- OUTSIDE RECORDS SUMMARY | 2025-01-15 19:05 | XMS_ITS | Encounter Summary ---
Author Organization [employer] [facility] Address [address] [place] [address] 7t [place] [address] Care Team Providers Care Rotor Casting Machine Operator Name Role Phone Priyanka Orozco MD Primary Care Provider [phone] Encounter Details Date Type Department Care Team (Late st Contact Info) Description 01/15/2025 Orders Only [facility] MED[facility]INE [address] [place] [address] [phone] Heather Razo RN [address] [place], [place] [phone] Anemia due to vitamin B12 deficiency, unspecified B12 deficiency type; Depo-Provera contraceptive status Social History Tobacco Use Types Packs/Day Years [...] Progress Notes * Heather Razo RN - 01/15/2025 10:23 AM EDT SO renewed for depo and B12 documented in this encounter Plan of Treatment Upcoming Encounters Date Type Department Care Team (Late Contact Info) Description 02/12/2025 10:00 AM EDT Clinical Support [address] [address] 04/02/2025 10:00 AM EDT Clinical Support [address] [address] documented as of this encounter Visit Diagnoses Diagnosis Anemia due to vitamin B12 deficiency, unspecified B12 deficiency type Depo-Provera contraceptive status documented in this encounter Care Teams Rotor Casting Machine Operator Relationship Specialty Start Date End Date Priyanka Orozco MD [address] [place] [address] PCP - General Family Medicine 11/25/21 documented as of this encounter
--- OUTSIDE RECORDS SUMMARY | 2025-01-15 19:05 | XMS_ITS | Encounter Summary ---
Author Organization [email or web address] Address [address] [place] [address] 7t [place] [address] Care Team Providers Care Bone Plant Supervisor Name Role Phone Priyanka Orozco MD Primary Care Provider [phone] Reason for Visit * Reason Comments Contraception B12 Injection Encounter Details Date Type Department Care Team (Latest Contact Info) Description 01/15/2025 9:30 AM EDT Clinical Support [facility] [address] [place] [address] [phone] Heather Razo RN [address] [place], [place] [phone] Anemia due to vitamin B12 deficiency, unspecified [...] Notes * Heather Razo RN - 01/15/2025 9:30 AM EDT S: Pt here for Depo RV Injection and monthly B12 injection. SO for Depo verified: 01/15/2025 SO for B12 verified: 01/15/2025 Pt denies smoking cigarettes and reports always uses condoms for STI prevention. Pt reports does not want to become in the next year. Pt's partner has preop appt upcoming to get a vasectomy Pt denies any difficulties previously with B12 or depo O: Pt appears calm, and well dressed/groomed. VS WNL HCG- not necessary as she is within window medroxyprogesterone 150mg/1mL injected into left deltoid Cyanocobalamin 1,000mcg/ML, 1mL given on left deltoid muscle Pt tolerated both injections well Pt observed for 15 minutes, no adverse reaction A: Health maintenance. STD/STI Prevention Education provided. Post Depo Injection education provided. Vitamin B12 Deficiency P: New Depo Window: 04/02-04/30 New Depo appt: 04/02/24 @10am with green nurses Next B12 appt: 02/12/25 @10am with green nurses Advised to FU Prn or cancel if no longer needed. Pt verbalized understanding, and agrees with plan. Heather Razo RN documented in this encounter Plan of Treatment Upcoming Encounters Date Type Department Care Team (Late st Contact Info) Description 02/12/2025 10:00 AM EDT Clinical Support [facility] [address] [place] [phone] 04/02/2025 10:00 AM EDT Clinical Support [address] [address] documented as of this encounter Visit Diagnoses Diagnosis Anemia due to vitamin B12 deficiency, unspecified B12 deficiency type Depo-Provera contraceptive status documented in this encounter Administered Medications Active Administered Medications - up to 3 most recent administrations Medication Order MAR Action Action Date Dose Rate Site cyanocobalamin (Vitamin B-12) injection 1,000 mcg 1,000 mcg, Intramuscular, Every 30 days, First dose on Tue01/16/25 at 0900, For 12 dosesIndications:Anemia due to vitamin B12 deficiency, unspecified B12 deficiency type Given 01/15/2025 10:28 AM EDT 1,000 mcg Left Deltoid medroxyPROGESTERone (Depo-Provera) injection 150 mg 150 mg, Intramuscular, Every 3 months, First dose on Tue01/15/25 at 1030, For 4 dosesIndications:Depo-Prove ra contraceptive status Given 01/15/2025 10:30 AM EDT 150 mg Left Deltoid documented in this encounter Care Teams Bone Plant Supervisor Relationship Specialty Start Date End Date Priyanka Orozco MD [address] [place] [address] PCP - General Family Medicine 11/25/21 documented as of this encounter
--- OUTSIDE RECORDS SUMMARY | 2025-01-15 19:05 | XMS_ITS | Encounter Summary ---
Author Organization [employer] [facility] Address [address] [place] [address] 7t h Floor [place] [phone] Care Team Providers Care Duplication Specialist Name Role Phone Priyanka Orozco MD Primary Care Provider [phone] Encounter Details Date Type Department Care Team (Late st Contact Info) Description 10/25/2024 Orders Only [facility] MED[facility]INE [address] [place] [address] [phone] Priyanka Orozco MD [address] [place] [address] [phone] Breast pain, right (Primary Dx); Breast lump [...] Description 02/12/2025 10:00 AM EDT Clinical Support [address] [address] 04/02/2025 10:00 AM EDT Clinical Support [address] [phone] documented as of this encounter Procedures Procedure Name Priority Date/Time Associated Diagnosis Comments BI US BREAST LIMITED RIGHT Routine 11/28/2024 2:30 PM EST BI MAMMOGRAM DIAGNOSTIC TOMOSYNTHESIS BILATERAL Routine 11/28/2024 2:00 PM EST documented in this encounter Results * BI US Breast Limited Right (11/28/2024 2:30 PM EST) Anatomical Region Laterality Modality Breast Right Ultrasound 11/28/2024 2:30 PM EST Narrative 11/28/2024 5:32 PM EST ? [facility] ? [address] ?[place] [address] ? Ultrasound Report ? Signed ? Patient: Pamela Louie ?MR#: [id number] ?? [id number] ? : 1990 ?Acct:[id number] ? Age/Sex: 34 / F ?ADM Date: 11/28/24 ? Loc: HO.MAMMO ? Attending Dr: Priyanka Orozco MD ? Ordering Physician: Priyanka Orozco MD ?? Date of Service: 11/28/24 ?? Procedure(s): US breast RT limited mamm only ?? Accession Number(s): [id number] ? cc: Priyanka Orozco MD ? EXAMINATION: [...] next mammogram. ? Electronically signed by: ??Kiah oRdriguez DO ??11/28/2024 05:29 PM EST ?? RP ? Dictated By: ?Kiah Rodriguez DO ? Signed By: ?<Electronically signed by Kiah Rodriguez, DO in OV> ? 11/28/24 1729 ? DD/ 1430 ? TD/TT: 11/28/24 1437 ? Handtools Repairer: ? Procedure Note Donotuseinterpreter, Image - [facility]/28/2024 [facility] [address] [place] [address] Ultrasound Report Signed Patient: Pamela Louie [facility]#: [id number] : 1990Acct:[id number] Age/Sex: 34 / FADM Date: 11/28/24 Loc: MARIN Attending Dr: Priyanka Orozco MD Ordering Physician: Priyanka Orozco MD Date of Service: 11/28/24 Procedure(s): US breast RT limited mamm only Accession Number(s): [id number] cc: Priyanka Orozco MD EXAMINATION: MM DIAGNOSTIC [...] 11/28/24 1729 DD/ 1430 TD/TT: 11/28/24 1437 Handtools Repairer: us Priyanka Orozco MD IMG US PROCEDURES Final Result * BI Mammogram Diagnostic Tomosynthesis Bilateral (11/28/2024 2:00 PM EST) Anatomical Region Laterality Modality Breast Bilateral Mammography 11/28/2024 2:00 PM EST Narrative 11/28/2024 5:32 PM EST ? [facility] [place] ? [address] ?[place] [address] ? Mammography Report ? Signed ? Patient: Liban,Pamela Felicia ?MR#: [id number] ?? [id number] ? : 1990 ?Acct:[id number] ? Age/Sex: 34 / F ?ADM Date: 02/12/25 ? Loc: HO.MAMMO ? Attending Dr: Priyanka Orozco MD ? Ordering Physician: Priyanka Orozco MD ?Results: 1Negative ? Date of Service: 11/28/24 ?Follow Up: 1 Year From Orig ?? inal Mammogram ? Procedure(s): MM tomosynthesis diagnostic BI ?? Accession Number(s): [id number] ? cc: Priyanka Orozco MD ? EXAMINATION: [...] by Kiah Rodriguez, DO in OV> ? 11/28/24 1729 ? DD/ 1400 ? TD/TT: 11/28/24 1423 ? Handtools Repairer: ? Procedure Note Donayakater, Image - 11/28/2024 [facility] [address] [place] [address] Mammography Report Signed Patient: Pamela Louie Ann#: [id number] [id number] : 1990Acct:[id number] Age/Sex: 34 / FADM Date: 11/28/24 Loc: MARIN Attending Dr: Priyanka Orozco MD Ordering Physician: Priyanka Orozco MDResults: 1Negative Date of Service: 11/28/24Follow Up: 1 Year From [facility] Mammogram Procedure(s): MM tomosynthesis diagnostic BI Accession Number(s): [id number] cc: Priyanka Orozco MD EXAMINATION: MM DIAGNOSTIC [...] 11/28/24 1729 DD/ 1400 TD/TT: 11/28/24 1423 Handtools Repairer: Priyanka Orozco MD IMG BI PROCEDURES Final Result documented in this encounter Visit Diagnoses Diagnosis Breast pain, right- Primary Breast lump on right side at 6 o'clock position Lump or mass in breast documented in this encounter Care Teams Duplication Specialist Relationship Specialty Start Date End Date Priyanka Orozco MD [address] [place] [phone] PCP - General Family Medicine 11/25/21 documented as of this encounter
--- OUTSIDE RECORDS SUMMARY | 2025-01-15 19:05 | XMS_ITS | Encounter Summary ---
Author Organization [facility] Address [address] [place] [address] 7t h Floor [place] [phone] Care Team Providers Care Road Worker Name Role Phone Priyanka Orzoco MD Primary Care Provider [phone] Encounter Details Date Type Department Care Team ([facility] Contact Info) Description 01/15/2025 Orders Only [facility] [address] [place] [address] Priyanka Orozco MD [address] [place] [address] [phone] Dysuria (Primary Dx) Social History Tobacco Use Types [...] Description 02/12/2025 10:00 AM EDT Clinical Support [address] [phone] 04/02/2025 10:00 AM EDT Clinical Support [address] [phone] Scheduled Orders Name Type Priority Associated Diagnoses Orde r Schedule Culture, Urine, Routine Microbiology Routine Dysuria Expected: 01/15/2025 (Approximate), Expires: 01/15/2026 documented as of this encounter Visit Diagnoses Diagnosis Dysuria- Primary documented in this encounter Care Teams Road Worker Relationship Specialty Start Date End Date Priyanka Orozco MD [address] [place] [address] PCP - General Family Medicine 11/25/21 documented as of this encounter
--- OUTSIDE RECORDS SUMMARY | 2025-01-15 19:06 | XMS_ITS | Encounter Summary ---
Author Organization [employer] [facility] Address [address] [facility] 7t h Floor [place] [phone] Care Team Providers Care Car Porter Name Role Phone Priyanka Orozco MD Primary Care Provider Encounter Details Date Type Department Care Team (Latest Contact Info) Description 12/12/[address] [facility] CONVERSIONS Dental, Provider, DDS Social History [...] Description 02/12/2025 10:00 AM EDT Clinical Support [facility] MEDICINE [address] [place] [address] 04/02/2025 10:00 AM EDT Clinical Support [facility] MEDICINE [address] [place] [address] documented as of this encounter Visit Diagnoses Not on filedocumented in this encounter Care Teams Car Porter Relationship Specialty Start Date End Date Priyanka Orozco MD [address] [place] [address] PCP - General Family Medicine 11/25/21 documented as of this encounter
--- OUTSIDE RECORDS SUMMARY | 2025-01-15 19:06 | XMS_ITS | Encounter Summary ---
Author Organization [employer] [facility] Address [address] [facility] 7t h Floor [place] [phone] Care Team Providers Care Index Editor Name Role Phone Priyanka Orozco MD Primary Care Provider [phone] Encounter Details Date Type Department Care Team (Latest Contact Info) Description 12/15/2018 Abstract [facility] CONVERSIONS Dental, Provider, DDS Social History [...] Description 02/12/2025 10:00 AM EDT Clinical Support [facility] MEDICINE [address] [place] [phone] 04/02/2025 10:00 AM EDT Clinical Support [facility] [address] [place] [phone] documented as of this encounter Visit Diagnoses Not on filedocumented in this encounter Care Teams Index Editor Relationship Specialty Start Date End Date Priyanka Orozco MD [address] [place] [address] PCP - General Family Medicine 11/25/21 documented as of this encounter
--- OUTSIDE RECORDS SUMMARY | 2025-01-15 19:06 | XMS_ITS | Clinical Summary ---
Author Organization [facility] Address [address] [place] [address] Phone Care Team Providers Care Seaman Officer Name Role Phone Priyanka Orozco MD Primary Care Provider [phone] Allergies Active Allergy Reactions Criticality Noted Date [...] season) 2024 10/02/2021, 11/27/2020, 10/30/2020 Influenza Vaccine (Season Ended) 2025 06/24/2022, 10/02/2021, 07/02/2020, Additional history exists DTaP,Tdap,and Td [...] on patient's age to complete this topic Meningococcal B Vacine Aged Out No lo nger eligible based on patient's age to complete this topic Pneumococcal Vaccine: Pediatrics (0 to 5 Years) and At-Risk Patients (6 to 64 Years) Aged Out No longer eligible based on patient's age to complete this topic RSV Immunization Patients Under 20 months Aged Out No longer eligible based on patient's age to complete this topic Insurance MEDICAID - [place] Care Teams Seaman Officer Relationship Specialty Start Date End Date Priyanka Orozco MD [address] [place] [phone] PCP - General Family Medicine 08/21/24
--- OUTSIDE RECORDS SUMMARY | 2025-01-15 19:06 | XMS_ITS | Encounter Summary ---
Author Organization [employer] [facility] Address [address] [place] [address] 7t h Floor [place] [phone] Care Team Providers Care Woodwind Reeds Cutter Name Role Phone Priyanka Orozco MD Primary Care Provider [phone] Encounter Details Date Type Department Care Team (Late Contact Info) Description 03/06/2024 Orders Only [facility] MEDICINE [address] [place] [address] Priyanka Orozco MD [address] [place] [address] Social History Tobacco Use Types Packs/Day Years [...] Description 02/12/2025 10:00 AM EDT Clinical Support [facility] MEDICINE [address] [place] [address] [phone] 04/02/2025 10:00 AM EDT Clinical Support [address] [phone] documented as of this encounter Visit Diagnoses Not on filedocumented in this encounter Care Teams Woodwind Reeds Cutter Relationship Specialty Start Date End Date Priyanka Orozco MD [address] [place] [address] [phone] PCP - General Family Medicine 11/25/21 documented as of this encounter
--- OUTSIDE RECORDS SUMMARY | 2025-01-15 19:06 | XMS_ITS | Encounter Summary ---
Author Organization [employer] Address [address] [place] [address] Care Team Providers Care Oven Heater Name Role Phone Priyanka Orozco MD Primary Care Provider [phone] Reason for Referral * Consultation (Routine) - Closed Specialty Diagnoses / Procedures Referred By Feliz cabezas Referred To Contact Obstetrics and Gynecology Diagnoses Less than 8 weeks gestation of Piryanka Orozco MD [address] [place] [address] Phone: tel: fax: [address] Phone: tel: fax: Referral ID Status Reason Start Date Expiration Date V isits Requested Visits Authorized [id number] Closed Specialty Services Required 12/08/2023 12/07/2024 30 30 Encounter Details Date Type Department Care Team (Late st Contact Info) Description 12/01/[address] [facility]INE [address] [place], [place] [phone] Priyanka Orozco MD [address] [place], [place] [phone] Less than 8 weeks gestation of (Primary [...] Description 02/12/2025 10:00 AM EDT Clinical Support [address] [address] 04/02/2025 10:00 AM EDT Clinical Support [address] [address] Scheduled Referrals Name Type Priority Associated Diagnoses Order Schedule Referral to Obstetrics / Gynecology Outpatient Referral Routine Less than 8 weeks gestation of Expected: 12/08/2023 (Approximate), Expires: 12/08/2024 documented as of this encounter Visit Diagnoses Diagnosis Less than 8 weeks gestation of - Primary documented in this encounter Care Teams Oven Heater Relationship Specialty Start Date End Date Priyanka Orozco MD [address] [place] [address] PCP - General Family Medicine 11/25/21 documented as of this encounter
--- OUTSIDE RECORDS SUMMARY | 2025-01-15 19:06 | XMS_ITS | Encounter Summary ---
Author Organization [employer] Address [address] [place] [address] 7t [place] [address] Care Team Providers Care Stock Raiser Name Role Phone Priyanka Orozco MD Primary Care Provider [phone] Reason for Referral * Consultation (Urgent) - Closed Specialty Diagnoses / Procedures Referred By Contjose t Referred To Contact Diagnoses , unspecified gestational age Priyanka Orozco MD [address] [place] [address] Phone: tel: fax: Tracy Ramírez [address] [place] [phone] Phone: tel: fax: Referral ID Status Reason Start Date Expiration Date V isits Requested Visits Authorized [id number] Closed Specialty Services Required 01/05/2024 01/04/2025 30 30 Encounter Details Date Type Department Care Team (Late st Contact Info) Description 12/27/2023 Orders Only [facility] MEDICINE [address] [place] [address] [phone] Priyanka Orozco MD [address] [place] [address] [phone] , unspecified gestational age (Primary Dx); Vitamin [...] Description 02/12/2025 10:00 AM EDT Clinical Support [address] [address] 04/02/2025 10:00 AM EDT Clinical Support [address] [address] Scheduled Referrals Name Type Priority Associated Diagnoses Orde r Schedule Referral to Obstetrics / Gynecology Outpatient Referral Urgent , unspecified gestational age Expected: 01/05/2024 (Approximate), Expires: 01/04/2025 documented as of this encounter Visit Diagnoses Diagnosis , unspecified gestational age- Primary Vitamin B12 deficiency Other B-complex deficiencies documented in this encounter Care Teams Stock Raiser Relationship Specialty Start Date End Date Priyanka Orozco MD [address] [place] [address] PCP - General Family Medicine 11/25/21 documented as of this encounter
--- OUTSIDE RECORDS SUMMARY | 2025-01-15 19:06 | XMS_ITS | Encounter Summary ---
Author Organization [email or web address] Address [address] [place] [address] 7t [place] [address] Care Team Providers Care Form Layer Name Role Phone Priyanka Orozco MD Primary Care Provider [phone] Encounter Details Date Type Department Care Team (Late st Contact Info) Description 03/21/2023 Orders Only [facility] [address] [place], [place] [phone] Priyanka Orozco MD [address] [place], [place] [phone] Fatigue, unspecified type (Primary Dx); Anemia due [...] 02/12/2025 10:00 AM EDT Clinical Support [facility] [address] [place] [address] 04/02/2025 10:00 AM EDT Clinical Support [facility] [address] [address] Scheduled Orders Name Type Priority Associated Diagnoses [...] (03/31/2023 1:33 PM EDT) FTA-ABS Nonreactive Nonreactive [facility] Comment: The FTA-ABS is a treponemal assay that is intended to be used with other tests (e.g., RPR) as part of a diagnostic algorithm in the diagnosis of syphilis. 03/31/2023 1:33 PM EDT 03/31/2023 1:34 PM EDT Narrative [facility] - 04/07/2023 7:14 PM EDT FASTING:NO FASTING: NO us Priyanka Orozco MD LAB BLOOD ORDERABLES Final Resul t [facility] [address], [place] [address] [facility] [address] [place] [address] * (ABNORMAL) RPR TITER REFLEX (03/31/2023 1:33 PM EDT) RPR Titer 1:1(H) [facility] [place] [facility] 03/31/2023 1:33 PM EDT 03/31/2023 1:34 PM EDT Narrative [facility] - 04/07/2023 7:14 PM EDT FASTING:NO FASTING: NO Priyanka Orozco MD LAB BLOOD ORDERABLES Final Resul t Performing Organization Address [facility]/ZIP Co de Phone Number [facility] [address] [place] [address], [place] [address] [facility] [place] [facility] [address] [place] [phone] * (ABNORMAL) RPR (Diagnosis) with Reflex to Titer??and Confirmatory Testing (03/31/2023 1:33 PM EDT) Pathologist [facility] RPR (DX) w/Refl Titer and Confirmatory Testing REACTIVE( A) NON-REACT KARLI [facility] [place] [facility] 03/31/2023 1:33 PM EDT 03/31/2023 1:34 PM EDT Narrative [facility] - 04/07/2023 7:14 PM EDT FASTING:NO FASTING: NO Priyanka Orozco MD LAB BLOOD ORDERABLES Final Resul t Performing Organization Address City/[facility]/ZIP Co de Phone Number [address], [facility] [place] [address] [facility] [place] [facility] [address] [place] [phone] * HIV-1/2 Antigen and Antibodies, Fourth Generation, with Reflexes (03/31/2023 1:33 PM EDT) Pathologist [facility] HIV Antigen/Antibody, 4th Generation NON-REAC TIVE NON-REAC TIVE [facility] [place] [facility] Comment: HIV-1 antigen and HIV-1/HIV-2 antibodies were [...] ?? For additional information please refer to http://[place]/faq/HJL765 (This link is being provided for informational/ educational purposes only.) The performance of this assay has not been clinically validated in patients less than 2 years old. Blood Venous blood specimen / Unknown 03/31/2023 1:33 PM EDT 03/31/2023 1:34 PM EDT Narrative [facility] - 04/07/2023 7:14 PM EDT FASTING:NO FASTING: NO Priyanka Orozco MD LAB BLOOD ORDERABLES Final Resul t [facility] [address], [place] [address] [facility] [place] [facility] [address] [place] [address] * Hepatitis C Antibody with Reflex to HCV, RNA, Quantitative, Real-Time PCR (03/31/2023 1:33 PM EDT) Hepatitis C Antibody NON-REACT KARLI NON-REACT KARLI [facility] [place] [facility] Index 0.08 <1.00 [facility] [place] [facility] Comment: HCV antibody was non-reactive. There is no laboratory evidence of HCV infection. In most cases, no further action is required. However, if recent HCV exposure is suspected, a test for HCV RNA (test code 68938) is suggested. For additional information please refer to http://[place].[employer]/faq/OUP25t1 (This link is being provided for informational/ educational purposes only.) Blood Venous blood specimen / Unknown 03/31/2023 1:33 PM EDT 03/31/2023 1:34 PM EDT Narrative [facility] - 04/07/2023 7:14 PM EDT FASTING:NO FASTING: NO Priyanka Orozco MD LAB BLOOD ORDERABLES Final Resul t Performing Organization Address [facility]/ZIP Co de Phone Number [facility] [address] [place] [address], [facility] [place] [address] [facility] [place] [facility] [address] [place] [phone] * Hepatitis B Surface Antigen with Reflex Confirmation (03/31/2023 1:33 PM EDT) Hepatitis B Surface Ag NON-REACT KARLI NON-REACT KARLI [facility] [place] [facility] Blood Venous blood specimen / Unknown 03/31/2023 1:33 PM EDT 03/31/2023 1:34 PM EDT Narrative [facility] - 04/07/2023 7:14 PM EDT FASTING:NO FASTING: NO Result [facility] Priyanka Orozco MD LAB BLOOD ORDERABLES Final Resul t Performing Organization Address [facility] de Phone Number [address], [place] [address] [facility] [place] [facility] [address] [place] [phone] * Hepatitis B Surface Antibody Immunity, Quantitative (03/31/2023 1:33 PM EDT) Hepatitis B Surface Antibody Immunity, QN 12 > OR = 10 mIU/mL [facility] [place] [facility] Comment: PATIENT HAS IMMUNITY TO HEPATITIS B VIRUS. For additional information, please refer to http://education.WhoKnows.[employer]/faq/BCQ218 (This link is being provided for informational/ educational purposes only). Blood 03/31/2023 1:33 PM EDT 03/31/2023 1:34 PM EDT Narrative [facility] - 04/07/2023 7:14 PM EDT FASTING:NO FASTING: NO Priyanka Orozco MD LAB BLOOD ORDERABLES Final Resul t Performing Organization Address [facility] de Phone Number [facility] [address], [facility] [place] [address] [facility] [place] [facility] [address] [place] [address] * Hepatitis B Core Antibody, Total (03/31/2023 1:33 PM EDT) Hepatitis B Core Antibody Total NON-REACT KARLI NON-REACT KARLI [facility] [place] [facility] Venous blood specimen / Unknown 03/31/2023 1:33 PM EDT 03/31/2023 1:34 PM EDT Narrative [facility] - 04/07/2023 7:14 PM EDT FASTING:NO FASTING: NO Priyanka Orozco MD LAB BLOOD ORDERABLES Final Resul t Performing Organization Address [facility] de Phone Number [facility] [address], [facility] [place] [address] [facility] [place] [facility] [address] [place] [phone] * TSH W/Reflex to FT4 (03/31/2023 1:33 PM EDT) TSH w/Reflex to FT4 0.90 mIU/L [facility] Comment: ?Reference Range ?> or = 20 Years ??0.40-4.50 ? Ranges ?First trimester ?0.26-2.66 ?Second trimester ?? 0.55-2.73 ?Third trimester ?0.43-2.91 Blood 03/31/2023 1:33 PM EDT 03/31/2023 1:34 PM EDT Narrative [facility] - 04/07/2023 7:14 PM EDT FASTING:NO FASTING: NO Priyanka Orozco MD LAB BLOOD ORDERABLES Final Resul t Performing Organization Address [facility] Co de Phone Number [facility] [address], [facility] [place] [address] [facility] [place] [facility] [address] [place] [address] * Hemoglobin A1c (03/31/2023 1:33 PM EDT) Pathologist [facility] Hemoglobin A1c 5.2 <5.7 % of total Hgb [facility] [place] [facility] Comment: For the purpose of screening for the presence of diabetes: <5.7% ? Consistent with the absence of diabetes 5.7-6.4% ?Consistent with increased risk for diabetes ?(prediabetes) > or =6.5% ??Consistent with diabetes This assay result is consistent with a decreased risk of diabetes. Currently, no consensus exists regarding use of hemoglobin A1c for diagnosis of diabetes in children. According to [place] [employer] (ADA) guidelines, hemoglobin A1c <7.0% represents optimal control in non- diabetic patients. Different metrics may apply to specific patient populations. Standards of Medical Care in Diabetes(ADA). ?? Blood Venous blood specimen / Unknown 03/31/2023 1:33 PM EDT 03/31/2023 1:34 PM EDT Narrative [facility] - 04/07/2023 7:14 PM EDT FASTING:NO FASTING: NO Priyanka Orozco MD LAB BLOOD ORDERABLES Final Resul t Performing Organization Address City/[facility]/ZIP Co de Phone Number [facility] [address], [facility] [place] [address] [facility] [place] [facility] [address] [place] [address] * (ABNORMAL) CBC auto differential (03/31/2023 1:33 PM EDT) White Blood Cell Count 6.6 3.8 - 10.8 Thousand/ uL [facility] Red Blood Cell Count 4.61 3.80 - 5.10 Million/u L [facility] [place] [facility] Hemoglobin 13.0 11.7 - 15.5 g/dL [facility] [place] [facility] Hematocrit 39.4 35.0 - 45.0 % [facility] [place] [facility] MCV 85.5 80.0 - 100.0 fL [facility] [place] [facility] MCH 28.2 27.0 - 33.0 pg [facility] [place] [facility] MCHC 33.0 32.0 - 36.0 g/dL [facility] [place] [facility] RDW 13.7 11.0 - 15.0 % [facility] [place] [facility] Platelet Count 411(H) 140 - 400 Thousand/ uL [facility] [place] [facility] MPV 9.9 7.5 - 12.5 fL [facility] [place] [facility] Absolute Neutrophils 3,478 1,500 - 7,800 cells/uL [facility] [place] [facility] Absolute Lymphocytes 2,567 850 - 3,900 cells/uL [facility] [place] [facility] Monocytes 422 200 - 950 cells/uL [facility] [place] [facility] Eosinophils 92 15 - 500 cells/uL [facility] [place] [facility] Basophils 40 0 - 200 cells/uL [facility] [place] [facility] Neutrophils 52.7 % [facility] [place] [facility] Lymphocytes 38.9 % [facility] [place] [facility] Monocytes 6.4 % [facility]OM[facility]RA[facility] [place] [facility] Eosinophils 1.4 % [facility] [place] [facility] Basophils 0.6 % [facility] [place] [facility] Blood Venous blood specimen / Unknown 03/31/2023 1:33 PM EDT 03/31/2023 1:34 PM EDT Narrative [facility] - 04/07/2023 7:14 PM EDT FASTING:NO FASTING: NO us Priyanka Orozco MD LAB BLOOD ORDERABLES Final Resul t [facility] [address], [place] [address] [facility] [place] [facility] [address] [place] [address] * Comprehensive Metabolic Panel (03/31/2023 1:33 PM EDT) Glucose 102 65 - 139 mg/dL [facility] [place] [facility] Comment: ? Non-fasting reference interval Urea Nitrogen (BUN) 11 7 - 25 mg/dL [facility] [place] [facility] Creatinine, Serum 0.72 0.50 - 0.97 mg/dL [facility] [place] [facility] eGFR 114 > OR = 60 mL/min/1 .73m2 [facility] [place] [facility] Comment: The eGFR is based on the CKD-EPI 2020 equation. To calculate the new eGFR from a previous Creatinine or Cystatin C result, go to https://www.kidney.org/professionals/ kdoqi/gfr%5Fcalculator BUN/Creatinine Ratio NOT APPLICABLE 6 - (calc) [facility] [place] [facility] Sodium 138 135 - 146 mmol/L [facility] [place] [facility] Potassium 4.1 3.5 - 5.3 mmol/L [facility] [place] [facility] Chloride 101 98 - 110 mmol/L [facility] [place] [facility] Carbon Dioxide 30 20 - 32 mmol/L [facility] [place] [facility] Calcium 9.4 8.6 - 10.2 mg/dL [facility] [place] [facility] Protein, Total 7.5 6.1 - 8.1 g/dL [facility] [place] [facility] Albumin 4.4 3.6 - 5.1 g/dL [facility] [place] [facility] Globulin 3.1 1.9 - 3.7 g/dL (calc) [facility] [place] [facility] Albumin/Globul in Ratio 1.4 1.0 - 2.5 (calc) [facility] [place] [facility] Bilirubin, Total 0.3 0.2 - 1.2 mg/dL [facility] [place] [facility] Alkaline Phosphatase 67 31 - 125 U/L [facility] [place] [facility] AST 17 10 - 30 U/L [facility] [place] [facility] ALT 22 6 - 29 U/L [facility] [place] [facility] Blood Venous blood specimen / Unknown 03/31/2023 1:33 PM EDT 03/31/2023 1:34 PM EDT Narrative [facility] - 04/07/2023 7:14 PM EDT FASTING:NO FASTING: NO Priyanka Orozco MD LAB BLOOD ORDERABLES Final Resul t Performing Organization Address [facility] de Phone Number [facility] [address], [facility] [place] [address] [facility] [place] [facility] [address] [place] [address] * Vitamin B12/Folate, Serum Panel (03/31/2023 1:33 PM EDT) Vitamin B12 715 200 - 1,100 pg/mL [facility] [place] [facility] Folate, Serum 21.4 ng/mL [facility] [place] [facility] Comment: ? Reference Range ? Low: ? <3.4 ? Borderline: ?3.4-5.4 ? Normal: ?>5.4 03/31/2023 1:33 PM EDT 03/31/2023 1:34 PM EDT Narrative [facility] - 04/07/2023 7:14 PM EDT FASTING:NO FASTING: NO Priyanka Orozco MD LAB BLOOD ORDERABLES Final Resul t Performing Organization Address City/[facility]/ZIP Co de Phone Number [facility] [address], [place] [address] [facility] [place] [facility] [address] [place] [address] * (ABNORMAL) Iron And Total Iron Binding Capacity (03/31/2023 1:33 PM EDT) Pathologist [facility] Iron, Total 50 40 - 190 mcg/dL [facility] [place] [facility] Iron Binding Capacity 441 250 - 450 mcg/dL (calc) [facility] [place] [facility] % Saturation 11(L) 16 - 45 % (calc) [facility] [place] [facility] Blood Venous blood specimen / Unknown 03/31/2023 1:33 PM EDT 03/31/2023 1:34 PM EDT Narrative [facility] - 04/07/2023 7:14 PM EDT FASTING:NO FASTING: NO us Priyanka Orozco MD LAB BLOOD ORDERABLES Final Resul t Performing Organization Address [facility] de Phone Number [address] [phone] [facility] [place] [facility] [address] [place] [phone] * (ABNORMAL) Ferritin (03/31/2023 1:33 PM EDT) [facility] Ferritin 11(L) 16 - 154 ng/mL [facility] [place] [facility] Blood Venous blood specimen / Unknown 03/31/2023 1:33 PM EDT 03/31/2023 1:34 PM EDT Narrative [facility] - 04/07/2023 7:14 PM EDT FASTING:NO FASTING: NO us Priyanka Orozco MD LAB BLOOD ORDERABLES Final Resul t Performing Organization Address [facility] de Phone Number [address] [phone] [facility] [place] [facility] [address] [place] [phone] documented in this encounter Visit Diagnoses Diagnosis Fatigue, unspecified type- Primary Anemia due to vitamin B12 deficiency, unspecified B12 deficiency type Routine screening for STI (sexually transmitted infection) Screening examination for venereal disease documented in this encounter Care Teams Form Layer Relationship Specialty Start Date End Date Priyanka Orozco MD [address] [place] [phone] PCP - General Family Medicine 11/25/21 documented as of this encounter
--- OUTSIDE RECORDS SUMMARY | 2025-01-15 19:06 | XMS_ITS | Encounter Summary ---
Author Organization [employer] [facility] Address [address] [place] [address] 7t h Floor [place] [phone] Care Team Providers Care Nutritionist Public Health Name Role Phone Priyanka Orozco MD Primary Care Provider [phone] Encounter Details Date Type Department Care Team ([facility] st Contact Info) Description 11/29/2024 Orders Only [facility] [address] [place] [address] [phone] Priyanka Orozco MD [address] [place] [address] [phone] Anemia due to vitamin B12 deficiency, unspecified B12 deficiency type (Primary Dx); Fatigue, unspecified type; Overweight; Vitamin deficiency Social History Tobacco Use Types Packs/Day [...] Description 02/12/2025 10:00 AM EDT Clinical Support [facility] [address] [place] [phone] 04/02/2025 10:00 AM EDT Clinical Support [facility] [address] [place] [address] [phone] Scheduled Orders Name Type Priority Associated Diagnoses Orde r Schedule CBC auto differential Lab Routine Anemia due to vitamin B12 deficiency, unspecified B12 deficiency type Expected: 11/29/2024 (Approximate), Expires: 11/29/2025 Comprehensive Metabolic Panel Lab Routine Anemia due to vitamin B12 deficiency, unspecified B12 deficiency type Expected: 11/29/2024 (Approximate), Expires: 11/29/2025 Ferritin Lab Routine Anemia due to vitamin B12 deficiency, unspecified B12 deficiency type Expected: 11/29/2024 (Approximate), Expires: 11/29/2025 Iron And Total Iron Binding Capacity Lab Routine Anemia due to vitamin B12 deficiency, unspecified B12 deficiency type Expected: 11/29/2024, Expires: 11/29/2025 Vitamin B12 (Cobalamin) and Folate Panel, Serum Lab Routine Anemia due to vitamin B12 deficiency, unspecified B12 deficiency type Expected: 11/29/2024 (Approximate), Expires: 11/29/2025 Vitamin D, 25-Hydroxy, Total, Immunoassay Lab Routine Vitamin deficiency Expected: 11/29/2024 (Approximate), Expires: 11/29/2025 TSH with Reflex to Free T4 Lab Routine Fatigue, unspecified type Expected: 11/29/2024 (Approximate), Expires: 11/29/2025 Hemoglobin A1c Lab Routine Overweight Expected: 11/29/2024 (Approximate), Expires: 11/29/2025 documented as of this encounter Visit Diagnoses Diagnosis Anemia due to vitamin B12 deficiency, unspecified B12 deficiency type- Primary Fatigue, unspecified type Overweight Vitamin deficiency Unspecified vitamin deficiency documented in this encounter Care Teams Nutritionist Public Health Relationship Specialty Start Date End Date Priyanka Orozco MD [address] [place] [phone] PCP - General Family Medicine 11/25/21 documented as of this encounter
--- OUTSIDE RECORDS SUMMARY | 2025-01-15 19:06 | XMS_ITS | Encounter Summary ---
Author Organization [facility] Address [address] [place] [address] 7t h Floor [place] [phone] Care Team Providers Care Tobacco Wetter Name Role Phone Priyanka Orozco MD Primary Care Provider [phone] Encounter Details Date Type Department Care Team ([facility] Contact Info) Description 08/02/2024 Orders Only [facility] MED[facility] [address] [place] [phone] Priyanka Orozco MD [address] [place] [address] [phone] Transaminitis (Primary Dx) Social History Tobacco Use [...] Description 02/12/2025 10:00 AM EDT Clinical Support [address] [phone] 04/02/2025 10:00 AM EDT Clinical Support [address] [phone] documented as of this encounter Procedures Procedure [...] EST) Hepatitis B Surface Ag Negative Negative [facility] Blood Venous blood specimen / Unknown 08/21/2024 11:39 AM EST 08/21/2024 1:19 PM EST us Priyanka Orozco MD LAB BLOOD ORDERABLES Final Resul t Performing Organization Address [facility] Co de Phone Number [facility] [address] [place] [phone] * Hepatitis A Antibody, Total (08/21/2024 11:39 AM EST) Hepatitis A Antibody IgG REACTIVE Nonreactive [facility] Comment:The presence of IgG anti-HAV implies past HAV infection(recent or distant) or vaccination against HAV. Blood Venous blood specimen / Unknown 08/21/2024 11:39 AM EST 08/21/2024 1:19 PM EST us Priyanka Orozco MD LAB BLOOD ORDERABLES Final Resul t Performing Organization Address City/[facility]/ZIP Co de Phone Number [facility] [address] [place] [phone] * Hepatitis C Antibody with Reflex to HCV, RNA, Quantitative, Real-Time PCR (08/21/2024 11:39 AM EST) Pathologist [facility] Hepatitis C Antibody Nonreactive Nonreactive [facility] Comment:Antibodies to HCV no t detected; does not exclude early acuteHCV infection. Blood Venous blood specimen / Unknown 08/21/2024 11:39 AM EST 08/21/2024 1:19 PM EST us Priyanka Orozco MD LAB BLOOD ORDERABLES Final Resul t Performing Organization Address [facility]/ZIP Co de Phone Number [facility] [address] [place] [phone] * Hepatitis B Core Antibody, Total (08/21/2024 11:39 AM EST) Pathologist [facility] Hepatitis B Core Antibody Nonreactive Nonreactive [facility] Blood Venous blood specimen / Unknown 08/21/2024 11:39 AM EST 08/21/2024 1:19 PM EST us Priyanka Orozco MD LAB BLOOD ORDERABLES Final Resul t Performing Organization Address [facility] Co de Phone Number [facility] [address] [place] [phone] * Hepatitis B Surface Antibody, Qualitative (08/21/2024 11:39 AM EST) Pathologist [facility] ~Hepatitis B Surface Antibody REACTIVE Nonreactive [facility] Comment:REACTIVE: > 11.99 mI U/mL Blood Venous blood specimen / Unknown 08/21/2024 11:39 AM EST 08/21/2024 1:19 PM EST us Priyanka Orozco MD LAB BLOOD ORDERABLES Final Resul t Performing Organization Address [facility] Co de Phone Number [facility] [address] [place] [phone] * (ABNORMAL) Hepatic Function Panel (08/21/2024 11:39 AM EST) Bilirubin, Total 0.4 0.0 - 1.0 mg/dL [facility] Bilirubin, Direct 0.1 0.0 - 0.5 mg/dL [facility] Aspartate Amino Transferase 32(H) 5 - 31 U/L [facility] Alanine Aminotransferase 41(H) 0 - 31 U/L [facility] Total Protein 7.4 6.5 - 8.0 g/dL [facility] Albumin Level 4.0 3.5 - 5.0 g/dL [facility] Alkaline Phosphatase 136(H) 39 - 117 U/L [facility] Blood Venous blood specimen / Unknown 08/21/2024 11:39 AM EST 08/21/2024 1:19 PM EST Priyanka Orozco MD LAB BLOOD ORDERABLES Final Resul t [facility] [address] [place] [phone] * Culture, Urine, Routine (08/02/2024 12:00 AM EDT) Urine Urine specimen obtained by clean catch procedure / Unknown 08/02/2024 08/02/2024 Comment:UACC Narrative [facility] - 08/04/2024 8:23 AM EDT Escherichia coli Quant > 100,000 cfu/mL Escherichia coli: Ampicillin >=32(R) Escherichia coli: Cefazolin <=4(S) Escherichia coli: Ceftriaxone <=0.25(S) Escherichia coli: Ciprofloxacin <=0.25(S) Escherichia coli: Gentamicin <=1(S) Escherichia coli: Nitrofurantoin <=16(S) Escherichia coli: Trimethoprim/Sulfamethoxazole <=20(S) Specimen Source: Urine clean catch Priyanka Orozco MD LAB MICROBIOLOGY - GENERAL ORDER DEMETRICE Final Result [facility] [address] [place] [phone] documented in this encounter Visit Diagnoses Diagnosis Transaminitis- Primary Nonspecific elevation of levels of transaminase or lactic acid dehydrogenase (LDH) documented in this encounter Care Teams Tobacco Wetter Relationship Specialty Start Date End Date Priyanka Orozco MD [address] [place] [phone] PCP - General Family Medicine 11/25/21 documented as of this encounter
== END 2025-01-15 17:27 | disposition home or self-care (01) ==
LOC: HO.LNP 17:26
PROVIDERS: Visit Provider Family Medicine
DX: R30.0 Dysuria (principal)
CPT/HCPCS: 87086

== ENCOUNTER 2025-01-25 09:24 | Outpatient (REF) | payer MEDICAID, SELFPAY ==
--- OUTSIDE RECORDS SUMMARY | 2025-01-25 09:47 | XMS_ITS | Encounter Summary ---
Author Organization [employer] [facility] Address [address] [place] [address] 7t h Floor [place] [phone] Care Team Providers Care Rn Documentation Name Role Phone Priyanka Orozco MD Primary Care Provider [phone] Encounter Details Date Type Department Care Team ([facility] Contact Info) Description 01/15/2025 Orders Only [facility] MEDICINE [address] [place] [address] [phone] Priyanka Orozco MD [address] [place] [address] [phone] Dysuria (Primary Dx) Social History Tobacco Use [...] Description 02/12/2025 10:00 AM EDT Clinical Support [address] [phone] 04/02/2025 10:00 AM EDT Clinical Support [address] [phone] documented as of this encounter Procedures Procedure Name Priority Date/Time Associated Diagnosis Comments CULTURE, URINE, ROUTINE Routine 01/15/2025 12:00 AM EDT Dysuria documented in this encounter Results * Culture, Urine, Routine (01/15/2025 12:00 AM EDT) Urine Urine specimen obtained by clean catch procedure / Unknown 01/15/2025 01/15/2025 Comment:[facility] Narrative [facility] - 01/17/2025 11:10 AM EDT Urine Culture Report Result Urine Culture 10,000 to 50,000 cfu/ml Urine Culture Mixed bacterial polly characteristic of Urine Culture urogenital contamination. Specimen Source: Urine clean catch us Priyanka Orozco MD LAB MICROBIOLOGY - GENERAL ORDER DEMETRICE Final Result [facility] [address] [place] [phone] documented in this encounter Visit Diagnoses Diagnosis Dysuria- Primary documented in this encounter Care Teams Rn Documentation Relationship Specialty Start Date End Date Priyanka Orozco MD [address] [place] [phone] PCP - General Family Medicine 11/25/21 documented as of this encounter
--- OUTSIDE RECORDS SUMMARY | 2025-01-25 09:48 | XMS_ITS | Encounter Summary ---
Author Organization [employer] Address [address] [place] [address] 7t [place] [address] Care Team Providers Care Granulator Name Role Phone Priyanka Orozco MD Primary Care Provider [phone] Encounter Details Date Type Department Care Team (Late st Contact Info) Description 03/21/2023 Orders Only [facility] MEDICINE [address] [place], [place] [phone] Priyanka Orozco MD [address] [place], [place] [phone] Fatigue, unspecified type (Primary Dx); Anemia due [...] Description 02/12/2025 10:00 AM EDT Clinical Support [facility] [address] [facility] [place] [address] 04/02/2025 10:00 AM EDT Clinical Support [facility] [address] [facility] [place] [address] Scheduled Orders Name Type Priority Associated Diagnoses [...] (03/31/2023 1:33 PM EDT) FTA-ABS Nonreactive Nonreactive [facility]/ [facility] Comment: The FTA-ABS is a treponemal assay that is intended to be used with other tests (e.g., RPR) as part of a diagnostic algorithm in the diagnosis of syphilis. 03/31/2023 1:33 PM EDT 03/31/2023 1:34 PM EDT Narrative [facility] - 04/07/2023 7:14 PM EDT FASTING:NO FASTING: NO us Priyanka Orozco MD LAB BLOOD ORDERABLES Final Resul t [facility] [address], [place] [address] [facility] [address] [place] [address] * (ABNORMAL) RPR TITER REFLEX (03/31/2023 1:33 PM EDT) RPR Titer 1:1(H) [facility] [place] [facility] 03/31/2023 1:33 PM EDT 03/31/2023 1:34 PM EDT Narrative [facility] - 04/07/2023 7:14 PM EDT FASTING:NO FASTING: NO Priyanka Orozco MD LAB BLOOD ORDERABLES Final Resul t Performing Organization Address [facility]/ZIP Co de Phone Number [employer] [address] [place] [address], [place] [address] [facility] [place] [facility] [address] [place] [phone] * (ABNORMAL) RPR (Diagnosis) with Reflex to Titer??and Confirmatory Testing (03/31/2023 1:33 PM EDT) Pathologist [facility] RPR (DX) w/Refl Titer and Confirmatory Testing REACTIVE( A) NON-REACT KARLI [facility] [place] [employer] [facility] 03/31/2023 1:33 PM EDT 03/31/2023 1:34 PM EDT Narrative [facility] - 04/07/2023 7:14 PM EDT FASTING:NO FASTING: NO Priyanka Orozco MD LAB BLOOD ORDERABLES Final Resul t Performing Organization Address City/[facility]/ZIP Co de Phone Number [address], [facility] [place] [address] [facility] [place] [facility] [address] [place] [phone] * HIV-1/2 Antigen and Antibodies, Fourth Generation, with Reflexes (03/31/2023 1:33 PM EDT) Pathologist [facility] HIV Antigen/Antibody, 4th Generation NON-REAC TIVE NON-REAC TIVE [facility] [place] [facility] Comment: HIV-1 antigen and HIV-1/HIV-2 antibodies were [...] ?? For additional information please refer to http://Un[employer]Extension[employer]/faq/IUF242 (This link is being provided for informational/ educational purposes only.) The performance of this assay has not been clinically validated in patients less than 2 years old. Blood Venous blood specimen / Unknown 03/31/2023 1:33 PM EDT 03/31/2023 1:34 PM EDT Narrative [facility] - 04/07/2023 7:14 PM EDT FASTING:NO FASTING: NO Priyanka Orozco MD LAB BLOOD ORDERABLES Final Resul t [facility] [address] [place] [address] [facility] [place] [employer] [facility] [address] [place] [address] * Hepatitis C Antibody with Reflex to HCV, RNA, Quantitative, Real-Time PCR (03/31/2023 1:33 PM EDT) Hepatitis C Antibody NON-REACT KARLI NON-REACT KARLI [facility] [place] [facility] Index 0.08 <1.00 [facility] [place] [facility] Comment: HCV antibody was non-reactive. There is no laboratory evidence of HCV infection. In most cases, no further action is required. However, if recent HCV exposure is suspected, a test for HCV RNA (test code 68169) is suggested. For additional information please refer to http://Unemployment-Extension.[employer]/faq/VRJ07n8 (This link is being provided for informational/ educational purposes only.) Blood Venous blood specimen / Unknown 03/31/2023 1:33 PM EDT 03/31/2023 1:34 PM EDT Narrative [employer] - 04/07/2023 7:14 PM EDT FASTING:NO FASTING: NO Priyanka Orozco MD LAB BLOOD ORDERABLES Final Resul t Performing Organization Address [facility]/ZIP Co de Phone Number [facility] [address] [place] [address], [facility] [place] [address] [facility] [place] [facility] [address] [place] [phone] * Hepatitis B Surface Antigen with Reflex Confirmation (03/31/2023 1:33 PM EDT) Hepatitis B Surface Ag NON-REACT KARLI NON-REACT KARLI [facility] [place] [facility] Blood Venous blood specimen / Unknown 03/31/2023 1:33 PM EDT 03/31/2023 1:34 PM EDT Narrative [employer] - 04/07/2023 7:14 PM EDT FASTING:NO FASTING: NO Result [facility] Priyanka Orozco MD LAB BLOOD ORDERABLES Final Resul t Performing Organization Address [facility] de Phone Number [address], [place] [address] [facility] [place] [facility] [address] [place] [phone] * Hepatitis B Surface Antibody Immunity, Quantitative (03/31/2023 1:33 PM EDT) Hepatitis B Surface Antibody Immunity, QN 12 > OR = 10 mIU/mL [facility] [place] [facility] Comment: PATIENT HAS IMMUNITY TO HEPATITIS B VIRUS. For additional information, please refer to http://education.[employer].4meee/faq/FWY000 (This link is being provided for informational/ educational purposes only). Blood 03/31/2023 1:33 PM EDT 03/31/2023 1:34 PM EDT Narrative [facility] - 04/07/2023 7:14 PM EDT FASTING:NO FASTING: NO Priyanka Orozco MD LAB BLOOD ORDERABLES Final Resul t Performing Organization Address [facility] de Phone Number [facility] [address], [facility] [place] [address] [facility] [place] [facility] [address] [place] [address] * Hepatitis B Core Antibody, Total (03/31/2023 1:33 PM EDT) Hepatitis B Core Antibody Total NON-REACT KARLI NON-REACT KARLI [facility] [place] [facility] Blood Venous blood specimen / Unknown 03/31/2023 1:33 PM EDT 03/31/2023 1:34 PM EDT Narrative [facility] - 04/07/2023 7:14 PM EDT FASTING:NO FASTING: NO Priyanka Orozco MD LAB BLOOD ORDERABLES Final Resul t Performing Organization Address [facility] de Phone Number [facility] [address], [facility] [place] [address] [facility] [place] [facility] [address] [place] [phone] * TSH W/Reflex to FT4 (03/31/2023 1:33 PM EDT) TSH w/Reflex to FT4 0.90 mIU/L [facility] Comment: ?Reference Range ?> or = 20 Years ??0.40-4.50 ? Ranges ?First trimester ?0.26-2.66 ?Second trimester ?? 0.55-2.73 ?Third trimester ?0.43-2.91 Blood 03/31/2023 1:33 PM EDT 03/31/2023 1:34 PM EDT Narrative [facility] - 04/07/2023 7:14 PM EDT FASTING:NO FASTING: NO Priyanka Orozco MD LAB BLOOD ORDERABLES Final Resul t Performing Organization Address [facility] Co de Phone Number [facility] [address], [facility] [place] [address] [facility] [place] [employer] [facility] [address] [place] [address] * Hemoglobin A1c (03/31/2023 1:33 PM EDT) Pathologist [facility] Hemoglobin A1c 5.2 <5.7 % of total Hgb [facility] [place] [facility] Comment: For the purpose of screening for the presence of diabetes: <5.7% ? Consistent with the absence of diabetes 5.7-6.4% ?Consistent with increased risk for diabetes ?(prediabetes) > or =6.5% ??Consistent with diabetes This assay result is consistent with a decreased risk of diabetes. Currently, no consensus exists regarding use of hemoglobin A1c for diagnosis of diabetes in children. According to [place] [employer] (ADA) guidelines, hemoglobin A1c <7.0% represents optimal control in non- diabetic patients. Different metrics may apply to specific patient populations. Standards of Medical Care in Diabetes(ADA). ?? Blood Venous blood specimen / Unknown 03/31/2023 1:33 PM EDT 03/31/2023 1:34 PM EDT Narrative [facility] - 04/07/2023 7:14 PM EDT FASTING:NO FASTING: NO Priyanka Orozco MD LAB BLOOD ORDERABLES Final Resul t Performing Organization Address City/[facility]/ZIP Co de Phone Number [facility] [address], [facility] [place] [address] [facility] [place] [employer] [facility] [address] [place] [address] * (ABNORMAL) CBC auto differential (03/31/2023 1:33 PM EDT) White Blood Cell Count 6.6 3.8 - 10.8 Thousand/ uL [facility] Red Blood Cell Count 4.61 3.80 - 5.10 Million/u L [facility] [place] [facility] Hemoglobin 13.0 11.7 - 15.5 g/dL [facility] [place] [facility] Hematocrit 39.4 35.0 - 45.0 % [facility] MCV 85.5 80.0 - 100.0 fL [facility] [place] [facility] MCH 28.2 27.0 - 33.0 pg [facility] [place] [facility] MCHC 33.0 32.0 - 36.0 g/dL [facility] [place] [facility] RDW 13.7 11.0 - 15.0 % [facility] [place] [facility] Platelet Count 411(H) 140 - 400 Thousand/ uL [facility] [place] [facility] MPV 9.9 7.5 - 12.5 fL [facility] [place] [facility] Absolute Neutrophils 3,478 1,500 - 7,800 cells/uL [facility] [place] [facility] Absolute Lymphocytes 2,567 850 - 3,900 cells/uL [facility] [place] [facility] Absolute Monocytes 422 200 - 950 cells/uL [facility] [place] [facility] Absolute Eosinophils 92 15 - 500 cells/uL [facility] [place] [facility] Absolute Basophils 40 0 - 200 cells/uL [facility] [place] [facility] Neutrophils 52.7 % [facility] [place] [facility] Lymphocytes 38.9 % [facility] [place] [facility] Monocytes 6.4 % [facility] [employer] [place] [facility] Eosinophils 1.4 % [facility] [place] [facility] Basophils 0.6 % [facility] [place] [facility] Blood Venous blood specimen / Unknown 03/31/2023 1:33 PM EDT 03/31/2023 1:34 PM EDT Narrative [facility] - 04/07/2023 7:14 PM EDT FASTING:NO FASTING: NO us Priyanka Orozco MD LAB BLOOD ORDERABLES Final Resul t [facility] [address], [place] [address] [facility] [place] [facility] [address] [place] [address] * Comprehensive Metabolic Panel (03/31/2023 1:33 PM EDT) Glucose 102 65 - 139 mg/dL [facility] [place] [facility] Comment: ? Non-fasting reference interval Urea Nitrogen (BUN) 11 7 - 25 mg/dL [facility] [place] [facility] Creatinine, Serum 0.72 0.50 - 0.97 mg/dL [facility] [place] [facility] eGFR 114 > OR = 60 mL/min/1 .73m2 [facility] [place] [facility] Comment: The eGFR is based on the CKD-EPI 2020 equation. To calculate the new eGFR from a previous Creatinine or Cystatin C result, go to https://www.kidney.org/professionals/ kdoqi/gfr%5Fcalculator BUN/Creatinine Ratio NOT APPLICABLE 6 - (calc) [facility] [place] [facility] Sodium 138 135 - 146 mmol/L [facility] [place] [facility] Potassium 4.1 3.5 - 5.3 mmol/L [facility] [place] [facility] Chloride 101 98 - 110 mmol/L [facility] [place] [facility] Carbon Dioxide 30 20 - 32 mmol/L [facility] [place] [facility] Calcium 9.4 8.6 - 10.2 mg/dL [facility] [place] [facility] Protein, Total 7.5 6.1 - 8.1 g/dL [facility] [place] [facility] Albumin 4.4 3.6 - 5.1 g/dL [facility] [place] [facility] Globulin 3.1 1.9 - 3.7 g/dL (calc) [facility] [place] [facility] Albumin/Globul in Ratio 1.4 1.0 - 2.5 (calc) [facility] [place] [facility] Bilirubin, Total 0.3 0.2 - 1.2 mg/dL [facility] [place] [facility] Alkaline Phosphatase 67 31 - 125 U/L [facility] [place] [facility] AST 17 10 - 30 U/L [facility] [place] [facility] ALT 22 6 - 29 U/L [facility] [place] [facility] Blood Venous blood specimen / Unknown 03/31/2023 1:33 PM EDT 03/31/2023 1:34 PM EDT Narrative [facility] - 04/07/2023 7:14 PM EDT FASTING:NO FASTING: NO Priyanka Orozco MD LAB BLOOD ORDERABLES Final Resul t Performing Organization Address [facility] de Phone Number [facility] [address], [facility] [place] [address] [facility] [place] [employer] [address] [place] [address] * Vitamin B12/Folate, Serum Panel (03/31/2023 1:33 PM EDT) Vitamin B12 715 200 - 1,100 pg/mL [facility] [place] [facility] Folate, Serum 21.4 ng/mL [facility] [place] [facility] Comment: ? Reference Range ? Low: ? <3.4 ? Borderline: ?3.4-5.4 ? Normal: ?>5.4 03/31/2023 1:33 PM EDT 03/31/2023 1:34 PM EDT Narrative [facility] - 04/07/2023 7:14 PM EDT FASTING:NO FASTING: NO Priyanka Orozco MD LAB BLOOD ORDERABLES Final Resul t Performing Organization Address City/[facility]/ZIP Co de Phone Number [facility] [address], [place] [address] [facility] [place] [employer] [facility] [address] [place] [address] * (ABNORMAL) Iron And Total Iron Binding Capacity (03/31/2023 1:33 PM EDT) Pathologist [facility] Iron, Total 50 40 - 190 mcg/dL [facility] [place] [facility] Iron Binding Capacity 441 250 - 450 mcg/dL (calc) [facility] [place] [facility] % Saturation 11(L) 16 - 45 % (calc) [facility] [place] [facility] Blood Venous blood specimen / Unknown 03/31/2023 1:33 PM EDT 03/31/2023 1:34 PM EDT Narrative [facility] - 04/07/2023 7:14 PM EDT FASTING:NO FASTING: NO us Priyanka Orozco MD LAB BLOOD ORDERABLES Final Resul t Performing Organization Address [facility] de Phone Number [address] [address] [facility] [place] [facility] [address] [place] [phone] * (ABNORMAL) Ferritin (03/31/2023 1:33 PM EDT) [facility] Ferritin 11(L) 16 - 154 ng/mL [facility] [place] [facility] Blood Venous blood specimen / Unknown 03/31/2023 1:33 PM EDT 03/31/2023 1:34 PM EDT Narrative [facility] - 04/07/2023 7:14 PM EDT FASTING:NO FASTING: NO us Priyanka Orozco MD LAB BLOOD ORDERABLES Final Resul t Performing Organization Address [facility] de Phone Number [address] [address] [facility] [place] [facility] [address] [place] [phone] documented in this encounter Visit Diagnoses Diagnosis Fatigue, unspecified type- Primary Anemia due to vitamin B12 deficiency, unspecified B12 deficiency type Routine screening for STI (sexually transmitted infection) Screening examination for venereal disease documented in this encounter Care Teams Granulator Relationship Specialty Start Date End Date Priyanka Orozco MD [address] [place] [phone] PCP - General Family Medicine 11/25/21 documented as of this encounter
--- OUTSIDE RECORDS SUMMARY | 2025-01-25 09:48 | XMS_ITS | Encounter Summary ---
Author Organization [facility] Address [address] [place] [address] 7t h Floor [place] [phone] Care Team Providers Care Wheel Setter Name Role Phone Priyanka Orozco MD Primary Care Provider [phone] Encounter Details Date Type Department Care Team (Late st Contact Info) Description 10/25/2024 Orders Only [facility] MEDICINE [address] [place] [address] [phone] Priyanka Orozco MD [address] [place] [address] [phone] Breast pain, right (Primary Dx); Breast lump [...] Description 02/12/2025 10:00 AM EDT Clinical Support [address] [address] 04/02/2025 10:00 AM EDT Clinical Support [address] [phone] documented as of this encounter Procedures Procedure [...] EST Narrative 11/28/2024 5:32 PM EST ? [facility] ? [address] ?[place] [address] ? Ultrasound Report ? Signed ? Patient: Pamela Louie ?MR#: [id number] ?? [id number] ? : 1990 ?Acct:[id number] ? Age/Sex: 34 / F ?ADM Date: 11/28/24 ? Loc: HO.MAMMO ? Attending Dr: Priyanka Orozco MD ? Ordering Physician: Priyanka Orozco MD ?? Date of Service: 11/28/24 ?? Procedure(s): US breast RT limited mamm only ?? Accession Number(s): [id number] ? cc: Priyanka Orozco MD ? EXAMINATION: [...] DD/ 1430 ? TD/TT: 11/28/24 1437 ? [employer]: ? Procedure Note Donotuseinterpreter, Image - 11/28/2024 [facility] [address] [place] [address] Ultrasound Report Signed Patient: Pamela Louie [facility]#: [id number] [id number] : 1990Acct:[id number] Age/Sex: 34 / FADM Date: 11/28/24 Loc: MARIN Attending Dr: Priyanka Orozco MD Ordering Physician: Priyanka Orozco MD Date of Service: 11/28/24 Procedure(s): US breast RT limited mamm only Accession Number(s): [id number] cc: Priyanka Orozco MD EXAMINATION: MM DIAGNOSTIC [...] 11/28/24 1729 DD/ 1430 TD/TT: 11/28/24 1437 [employer]: us Priyanka Orozco MD IMG US PROCEDURES Final Result * BI Mammogram Diagnostic Tomosynthesis Bilateral (11/28/2024 2:00 PM EST) Anatomical Region Laterality Modality Breast Bilateral Mammography 11/28/2024 2:00 PM EST Narrative 11/28/2024 5:32 PM EST ? [facility] [place] ? [address] ?[place] [address] ? Mammography Report ? Signed ? Patient: Liban,Pamela Felicia ?MR#: [id number] ?? [id number] ? : 1990 ?Acct:[id number] ? Age/Sex: 34 / F ?ADM Date: 02/12/25 ? Loc: HO.MAMMO ? Attending Dr: Priyanka Orozco MD ? Ordering Physician: Priyanka Orozco MD ?Results: 1Negative ? Date of Service: 11/28/24 ?Follow Up: 1 Year From Orig ?? inal Mammogram ? Procedure(s): MM tomosynthesis diagnostic BI ?? Accession Number(s): [id number] ? cc: Priyanka Orozco MD ? EXAMINATION: [...] DD/ 1400 ? TD/TT: 11/28/24 1423 ? [employer]: ? Procedure Note Donayakater, Image - 11/28/2024 [facility] [address] [place] [address] Mammography Report Signed Patient: Pamela Louie Ann#: [id number] [id number] : 1990Acct:[id number] Age/Sex: 34 / FADM Date: 11/28/24 Loc: MARIN Attending Dr: Priyanka Orozco MD Ordering Physician: Priyanka Orozco MDResults: 1Negative Date of Service: 11/28/24Follow Up: 1 Year From [facility] Mammogram Procedure(s): MM tomosynthesis diagnostic BI Accession Number(s): [id number] cc: Priyanka Orozco MD EXAMINATION: MM DIAGNOSTIC [...] 11/28/24 1729 DD/ 1400 TD/TT: 11/28/24 1423 [employer]: Priyanka Orozco MD IMG BI PROCEDURES Final Result documented in this encounter Visit Diagnoses Diagnosis Breast pain, right- Primary Breast lump on right side at 6 o'clock position Lump or mass in breast documented in this encounter Care Teams Wheel Setter Relationship Specialty Start Date End Date Priyanka Orozco MD [address] [place] [phone] PCP - General Family Medicine 11/25/21 documented as of this encounter
--- OUTSIDE RECORDS SUMMARY | 2025-01-25 09:48 | XMS_ITS | Encounter Summary ---
Author Organization [employer] [facility] Address [address] [place] [address] 7t h Floor [place] [phone] Care Team Providers Care Labor Service Representative Name Role Phone Priyanka Orozco MD Primary Care Provider [phone] Encounter Details Date Type Department Care Team (Late Contact Info) Description 01/15/2025 Orders Only [facility] [address] [place] [address] [phone] Priyanka Orozco MD [address] [place] [address] [phone] Social History Tobacco Use Types Packs/Day Years [...] Description 02/12/2025 10:00 AM EDT Clinical Support [facility] [address] [place] [address] [phone] 04/02/2025 10:00 AM EDT Clinical Support [facility] [address] [place] [address] [phone] documented as of this encounter Visit Diagnoses Not on filedocumented in this encounter Care Teams Labor Service Representative Relationship Specialty Start Date End Date Priyanka Orozco MD [address] [place] [address] [phone] PCP - General Family Medicine 11/25/21 documented as of this encounter
--- OUTSIDE RECORDS SUMMARY | 2025-01-25 09:48 | XMS_ITS | Encounter Summary ---
Author Organization [facility] Address [address] [facility] 7t h Floor [place] [phone] Care Team Providers Care Fac Engineer Name Role Phone Priyanka Orozco MD Primary Care Provider [phone] Encounter Details Date Type Department Care Team (Latest Contact Info) Description 12/15/2018 Abstract [facility] Dental, Provider, DDS Social History [...] Description 02/12/2025 10:00 AM EDT Clinical Support [facility] [address] [place] [phone] 04/02/2025 10:00 AM EDT Clinical Support [facility] [address] [place] [phone] documented as of this encounter Visit Diagnoses Not on filedocumented in this encounter Care Teams Fac Engineer Relationship Specialty Start Date End Date Priyanka Orozco MD [address] [place] [phone] PCP - General Family Medicine 11/25/21 documented as of this encounter
--- OUTSIDE RECORDS SUMMARY | 2025-01-25 09:48 | XMS_ITS | Encounter Summary ---
Author Organization [employer] [facility] Address [address] [place] [address] 7t h Floor [place] [phone] Care Team Providers Care Data Security Consultant Name Role Phone Priyanka Orozco MD Primary Care Provider [phone] Encounter Details Date Type Department Care Team ([facility] st Contact Info) Description 11/29/2024 Orders Only [facility] MEDICINE [address] [place] [address] [phone] Priyanka Orozco MD [address] [place] [address] [phone] Anemia due to vitamin B12 deficiency, unspecified [...] Description 02/12/2025 10:00 AM EDT Clinical Support [facility]INE [address] [place] [phone] 04/02/2025 10:00 AM EDT Clinical Support [facility]INE [address] [place] [address] [phone] Scheduled Orders Name Type Priority Associated Diagnoses [...] deficiency documented in this encounter Care Teams Data Security Consultant Relationship Specialty Start Date End Date Priyanka Orozco MD [address] [place] [phone] PCP - General Family Medicine 11/25/21 documented as of this encounter
--- OUTSIDE RECORDS SUMMARY | 2025-01-25 09:48 | XMS_ITS | Encounter Summary ---
Author Organization [employer] Address [address] [place] [address] Care Team Providers Care Marking Machine Operator Name Role Phone Priyanka Orozco MD Primary Care Provider [phone] Reason for Referral * Consultation (Routine) - Closed Specialty Diagnoses / Procedures Referred By Feliz cabezas Referred To Contact Obstetrics and Gynecology Diagnoses Less than 8 weeks gestation of Priyanka Orozco MD [address] [place] [address] Phone: tel: fax: [address] Phone: tel: fax: Referral ID Status Reason Start Date Expiration Date V isits Requested Visits Authorized [id number] Closed Specialty Services Required 12/08/2023 12/07/2024 30 30 Encounter Details Date Type Department Care Team (Late st Contact Info) Description 12/01/2023 Orders Only [facility] MEDICINE [address] [place], [place] [phone] Priyanka Orozco MD [address] [place], [place] [phone] Less than 8 weeks gestation of (Primary [...] Description 02/12/2025 10:00 AM EDT Clinical Support [address] [address] 04/02/2025 10:00 AM EDT Clinical Support [address] [address] Scheduled Referrals Name Type Priority Associated Diagnoses Order Schedule Referral to Obstetrics / Gynecology Outpatient Referral Routine Less than 8 weeks gestation of Expected: 12/08/2023 (Approximate), Expires: 12/08/2024 documented as of this encounter Visit Diagnoses Diagnosis Less than 8 weeks gestation of - Primary documented in this encounter Care Teams Marking Machine Operator Relationship Specialty Start Date End Date Priyanka Orozco MD [address] [place] [phone] PCP - General Family Medicine 11/25/21 documented as of this encounter
--- OUTSIDE RECORDS SUMMARY | 2025-01-25 09:48 | XMS_ITS | Clinical Summary ---
Author Organization [employer] Address [address] [facility] 7t [place] [address] Care Team Providers Care Supervisor Sewing Room Name Role Phone Priyanka Orozco MD Primary Care Provider [phone] Allergies Active Allergy Reactions Criticality Noted Date Comments Medroxyprogesterone Acetate Hives 01/18/20 25 Penicillins 07/12/2014 Other reaction(s): Hives/Skin Rash Medications [...] for nausea or vomiting. 12 tablet 06/29/20 Active Misc. Devices (Pulse Oximeter For Finger) [...] pain or fever 50 capsule 1 08/01/20 Active 27-1 MG tablet Take 1 tablet [...] EVERY MONTH 3 mL 3 10/15/20 Active escitalopram (Lexapro) 5 MG tablet Take 1 tablet by mouth once daily for 10 days, then increase to 2 tablets by mouth daily 180 tablet 1 12/13/19 Active cefuroxime (Ceftin) 250 MG tablet Take 1 tablet (250 mg) by mouth 2 times daily for 7 days. 14 tablet 01/16/20 25 2024 Hospital, Clinic, or Other Facility Administered Medication Ordered Dose Route Frequency Start Date End Date Status cyanocobalamin (Vitamin B-12) injection 1,000 mcgIndications:Anemia due to vitamin B12 deficiency, unspecified B12 deficiency type 1000 mcg IM Every 30 days 01/16/2025 01/11/2026 Active medroxyPROGESTERone (Depo-Provera) injection 150 mgIndications:Depo-Pro vera contraceptive status 150 mg IM Every 3 months 01/15/2025 01/10/2026 Active Active Problems Problem Noted Date Diagnosed Date [...] if needed I will refer her to seo marketing specialist Neck pain 10/06/2023 Assessment & Plan [...] continue loratadine and montelukast - referred to seo marketing specialist for allergy test and immunotherapy. Assessment & Plan (10/06/2023 9:00 AM EST): - continue loratadine and montelukast - referred to seo marketing specialist for allergy test and immunotherapy. Assessment & Plan (02/22/2023 5:17 AM EDT): - continue loratadine and montelukast - refer to seo marketing specialist for allergy test and immunotherapy. Dental plaque 01/04/2023 Open episcopal margins 01/04/2023 Acne vulgaris 12/14/2022 Assessment & [...] organization. Date Type Department Care Team Description 01/17/[address] [address] Priyanka Orozco MD Nurse Triage 01/15/2025 9:30 AM EDT Clinical Support [address] [address] Heather Razo, MARLENA Anemia due to vitamin B12 deficiency, unspecified B12 deficiency type; Depo-Provera contraceptive status 01/15/2025 Orders Only [address] [address] Priyanka Orozco MD Dysuria (Primary Dx) 01/15/2025 Orders Only [address] [address] Priyanka Orozco MD 01/15/2025 Orders Only [address] [address] Heather Razo, MARLENA Anemia due to vitamin B12 deficiency, unspecified B12 deficiency type; Depo-Provera contraceptive status 01/02/2025 11:15 AM EDT Telemedicine [address] [address] Priyanka Orozco MD depression (Primary Dx); Recurrent urinary tract infection; Anxiety and depression; Allergic rhinitis, unspecified seasonality, unspecified trigger; Anemia due to vitamin B12 deficiency, unspecified B12 deficiency type 01/02/2025 Travel 12/31/[address] [facility] [address] Priyanka Orozco MD chart prep 12/28/2024 Population Health Risk Score [facility] ([facility]) Department [address] [place] [phone] Provider, Population Health Generic 12/18/2024 9:30 AM EST Clinical Support [facility] [place] [place] [address] Heather Razo, RN Anemia due to vitamin B12 deficiency, unspecified B12 deficiency type 12/18/2024 Travel 12/13/2024 Telephone [facility] [address] [facility] [place] [address] Priyanka Orozco MD 11/29/2024 Orders Only [facility] [place] [address] Priyanka Orozco MD Anemia due to vitamin B12 deficiency, unspecified B12 deficiency type (Primary Dx); Fatigue, unspecified type; Overweight; Vitamin deficiency 11/20/2024 10:00 AM EST Clinical Support [facility] [place] [address] Heather Razo, RN Anemia due to vitamin B12 deficiency, unspecified B12 deficiency type 11/20/2024 Travel from Last 3 Months Immunizations Name [...] Description 02/12/2025 10:00 AM EDT Clinical Support [facility] [address] [place] [address] 04/02/2025 10:00 AM EDT Clinical Support [facility] [address] [place] [address] Health Maintenance Due Date Last Done Comments [...] ROUTINE Routine 01/15/2025 12:00 AM EDT Dysuria BI US BREAST LIMITED RIGHT Routine 11/28/2024 [...] Recently Relevant to Health Maintenance Results * Culture, Urine, Routine (01/15/2025 12:00 AM EDT) Urine Urine specimen obtained by clean catch procedure / Unknown 01/15/2025 01/15/2025 Comment:UACC Narrative [facility] - 01/17/2025 11:10 AM EDT Urine Culture Report Result Urine Culture 10,000 to 50,000 cfu/ml Urine Culture Mixed bacterial polly characteristic of Urine Culture urogenital contamination. Specimen Source: Urine clean catch us Priyanka Orozco MD LAB MICROBIOLOGY - GENERAL ORDER DEMETRICE Final Result [facility] [address] [place] [phone] [phone] * BI US Breast Limited Right (11/28/2024 2:30 PM EST) Anatomical Region Laterality Modality Breast Right Ultrasound 11/28/2024 2:30 PM EST Narrative 11/28/2024 5:32 PM EST ? [facility] ? [address] ?[place] [address] ? Ultrasound Report ? Signed ? Patient: Pamela Louie ?MR#: [id number] ?? [id number] ? : 1990 ?Acct:[id number] ? Age/Sex: 34 / F ?ADM Date: 11/28/24 ? Loc: HO.MAMMO ? Attending Dr: Priyanka Orozco MD ? Ordering Physician: Priyanka Orozco MD ?? Date of Service: 11/28/24 ?? Procedure(s): US breast RT limited mamm only ?? Accession Number(s): [id number] ? cc: Priyanka Orozco MD ? EXAMINATION: [...] ??Kiah Rodriguez DO ??11/28/2024 05:29 PM EST ? Dictated By: ?Kiah Rodriguez DO ? Signed By: ?<Electronically signed by Kiah Rodriguez, DO in OV> ? 11/28/24 1729 ? DD/ 1430 ? TD/TT: 11/28/24 1437 ? Interpersonal Communications Professor: ? Procedure Note Yolanda, Ry - 11/28/2024 [facility] [address] [place], [place] [address] Ultrasound Report Signed Patient: Pamela Louie [facility]#: [id number] : 1990Acct:[id number] Age/Sex: 34 / FADM Date: 11/28/24 Loc: HO.MAMMO Attending Dr: Priyanka Orozco MD Ordering Physician: Priyanka Orozco MD Date of Service: 11/28/24 Procedure(s): US breast RT limited mamm only Accession Number(s): [id number] cc: Priyanka Orozco MD EXAMINATION: MM DIAGNOSTIC [...] 11/28/24 1729 DD/ 1430 TD/TT: 11/28/24 1437 Interpersonal Communications Professor: us Priyanka Orozco MD IMG US PROCEDURES Final Result * BI Mammogram Diagnostic Tomosynthesis Bilateral (11/28/2024 2:00 PM EST) Anatomical Region Laterality Modality Breast Bilateral Mammography 11/28/2024 2:00 PM EST Narrative 11/28/2024 5:32 PM EST ? [facility] ? [address] ?[place] [address] ? Mammography Report ? Signed ? Patient: Liban,Pamela Felicia ?MR#: [id number] ?? [id number] ? : 1990 ?Acct:[id number] ? Age/Sex: 34 / F ?ADM Date: 11/28/24 ? Loc: HO.MAMMO ? Attending Dr: Priyanka Orozco MD ? Ordering Physician: Priyanka Orozco MD ?Results: 1Negative ? Date of Service: 11/28/24 ?Follow Up: 1 Year From Orig ?? inal Mammogram ? Procedure(s): MM tomosynthesis diagnostic BI ?? Accession Number(s): [id number] ? cc: Priyanka Orozco MD ? EXAMINATION: [...] ??Kiah Rodriguez DO ??11/28/2024 05:29 PM EST ? Dictated By: ?Kiah Rodriguez DO ? Signed By: ?<Electronically signed by Kiah Rodriguez, DO in OV> ? 11/28/24 1729 ? DD/ 1400 ? TD/TT: 11/28/24 1423 ? Interpersonal Communications Professor: ? Procedure Note Donlily, Image - 11/28/2024 [facility] [address] [place] [address] Mammography Report Signed Patient: Pamela Louie [facility]#: [id number] : 1990Acct:[id number] Age/Sex: 34 / FADM Date: 11/28/24 Loc: [facility] Attending Dr: Priyanka Orozco MD Ordering Physician: Priyanka Orozco MDResults: 1Negative Date of Service: 11/28/24Follow Up: 1 Year From Orig inal Mammogram Procedure(s): MM tomosynthesis diagnostic BI Accession Number(s): [id number] cc: Priyanka Orozco MD EXAMINATION: MM DIAGNOSTIC [...] 11/28/24 1729 DD/ 1400 TD/TT: 11/28/24 1423 Interpersonal Communications Professor: Priyanka Orozco MD IMG BI PROCEDURES Final Result * Hepatitis C Antibody with Reflex to HCV, RNA, Quantitative, Real-Time PCR (08/21/2024 11:39 AM EST) Hepatitis C Antibody Nonreactive Nonreactive [facility] Comment:Antibodies to HCV no t detected; does not exclude early acuteHCV infection. Blood Venous blood specimen / Unknown 08/21/2024 11:39 AM EST 08/21/2024 1:19 PM EST Priyanka Orozco MD LAB BLOOD ORDERABLES Final Resul t [facility] [address] [place] [phone] * Image-Guided Pap with Age-Based Screening??with CT/NG,??Trichomonas (08/11/2023 9:30 AM EDT) Pathologist [facility] Trichomonas (NAAT) NOT DETECTED NOT DETECTED [facility] Comment:The analytical perfo rmance characteristics of thisassay have been determined by [facility]. Themodifications have not been cleared or approved bythe FDA. This assay has been validated pursuant to theIA regulations and is used for clinical purposes.For additional information, please refer tohttp://PWRF.NutraMed/faq/Trichomonastma(This link is being provided for information/educational purposes only.)THIS TEST WAS PERFORMED AT:[facility] [address] [id number] R DE LEÓN MD CTNG Ref Lab NOT DETECTED NOT DETECTED [facility] NG Ref Lab NOT DETECTED NOT DETECTED [facility] 08/11/2023 9:30 AM EDT 08/12/2023 6:30 AM EDT us Saritha Oro [facility] CYTOLOGY ORDERABLES F inal Result [facility] [address] [place] [phone] * HPV mRNA E6/E7 w/Reflex to HPV Genotypes 16, 18/45 (08/11/2023 9:30 AM EDT) Pathologist [facility] HPV nRNA E6/E7 Not Detected Not Detected [facility] Comment:Methodology: Transcr iption-Mediated AmplificationThis assay detects E6/E7 viral messenger RNA (mRNA) from 14high-risk HPV types (16,18,31,33,35,39,45,51,52,56,58,59,66,68).Cervical sources are required for HPV testing.If a vaginal source from a patient who has had atotal hysterectomy with removal of cervix wassubmitted, please contact the testing laboratoryfor alternative testing options.For additional information, please refer tohttp://education.NutraMed/faq/ZRG078b9(This link if provided for information/educational purposes only.)THIS TEST WAS PERFORMED AT:[facility] [place] [id number] R DE LEÓN MD HPV mRNA E6/E7 [facility] HPV 16 RNA [facility] HPV 18/45 RNA [facility] 08/11/2023 9:30 AM EDT 08/12/2023 6:30 AM EDT us Saritha Oro [facility] CYTOLOGY ORDERABLES F inal Result [facility] [address] [place] [phone] * HIV-1/2 Antigen and Antibodies, Fourth Generation, with Reflexes (03/31/2023 1:33 PM EDT) HIV Antigen/Antibody, 4th Generation NON-REAC TIVE NON-REAC TIVE [facility] Comment: HIV-1 antigen and HIV-1/HIV-2 antibodies [...] ?? For additional information please refer to http://education.Consultant Marketplace.Anywhere.FM/faq/FMW705 (This link is being provided for informational/ educational purposes only.) The performance of this assay has not been clinically validated in patients less than 2 years old. Blood Venous blood specimen / Unknown 03/31/2023 1:33 PM EDT 03/31/2023 1:34 PM EDT Narrative [facility] - 04/07/2023 7:14 PM EDT FASTING:NO FASTING: NO us Priyanka Orozco MD LAB BLOOD ORDERABLES Final Resul t [facility] [address] [facility], [facility], [place] [address] [facility] [address] [place] [phone] from Last 3 Months or Most Recently Relevant to Health Maintenance Insurance [place] [employer] * Guarantor: Pamela Louie Account Type Relation to Patient Date of Phone Billing Address Dental Self [address] [place] [address] D[employer]-[facility] [employer] STAND ADULT Care Teams Supervisor Sewing Room Relationship Specialty Start Date End Date Priyanka Orozco MD [address] [place] [phone] PCP - General Family Medicine 11/25/21
--- OUTSIDE RECORDS SUMMARY | 2025-01-25 09:48 | XMS_ITS | Encounter Summary ---
Author Organization [employer] Address [address] [place] [address] 7t [place] [address] Care Team Providers Care Technical Assistance Consultant Name Role Phone Priyanka Orozco MD Primary Care Provider [phone] Reason for Referral * Consultation (Urgent) - Closed Specialty Diagnoses / Procedures Referred By Contjose t Referred To Contact Diagnoses , unspecified gestational age Priyanka Orozco MD [address] [place] [phone] Phone: tel: fax: Tracy Ramírez [address] [place] [phone] Phone: tel: fax: Referral ID Status Reason Start Date Expiration Date V isits Requested Visits Authorized [id number] Closed Specialty Services Required 01/05/2024 01/04/2025 30 30 Encounter Details Date Type Department Care Team (Late st Contact Info) Description 12/27/2023 Orders Only [facility] MEDICINE [address] [place] [address] [phone] Priyanka Orozco MD [address] [place] [address] [phone] , unspecified gestational age (Primary Dx); Vitamin [...] Description 02/12/2025 10:00 AM EDT Clinical Support [address] [address] 04/02/2025 10:00 AM EDT Clinical Support [address] [address] Scheduled Referrals Name Type Priority Associated Diagnoses Orde r Schedule Referral to Obstetrics / Gynecology Outpatient Referral Urgent , unspecified gestational age Expected: 01/05/2024 (Approximate), Expires: 01/04/2025 documented as of this encounter Visit Diagnoses Diagnosis , unspecified gestational age- Primary Vitamin B12 deficiency Other B-complex deficiencies documented in this encounter Care Teams Technical Assistance Consultant Relationship Specialty Start Date End Date Priyanka Orozco MD [address] [place] [phone] PCP - General Family Medicine 11/25/21 documented as of this encounter
--- OUTSIDE RECORDS SUMMARY | 2025-01-25 09:48 | XMS_ITS | Encounter Summary ---
Author Organization [employer] [facility] Address [address] [place] [address] 7t h Floor [place] [phone] Care Team Providers Care Psychiatry Instructor Name Role Phone Priyanka Orozco MD Primary Care Provider [phone] Encounter Details Date Type Department Care Team ([facility] Contact Info) Description 08/02/2024 Orders Only [facility] MEDICINE [address] [place] [phone] Priyanka Orozco MD [address] [place] [address] [phone] Transaminitis (Primary Dx) Social History Tobacco Use [...] Description 02/12/2025 10:00 AM EDT Clinical Support [address] [phone] 04/02/2025 10:00 AM EDT Clinical Support [address] [phone] documented as of this encounter Procedures Procedure [...] EST) Hepatitis B Surface Ag Negative Negative [facility] Blood Venous blood specimen / Unknown 08/21/2024 11:39 AM EST 08/21/2024 1:19 PM EST us Priyanka Orozco MD LAB BLOOD ORDERABLES Final Resul t Performing Organization Address [facility] Co de Phone Number [facility] [address] [place] [phone] * Hepatitis A Antibody, Total (08/21/2024 11:39 AM EST) Hepatitis A Antibody IgG REACTIVE Nonreactive [facility] Comment:The presence of IgG anti-HAV implies past HAV infection(recent or distant) or vaccination against HAV. Blood Venous blood specimen / Unknown 08/21/2024 11:39 AM EST 08/21/2024 1:19 PM EST us Priyanka Orozco MD LAB BLOOD ORDERABLES Final Resul t Performing Organization Address City/[facility]/ZIP Co de Phone Number [facility] [address] [place] [phone] * Hepatitis C Antibody with Reflex to HCV, RNA, Quantitative, Real-Time PCR (08/21/2024 11:39 AM EST) Pathologist [facility] Hepatitis C Antibody Nonreactive Nonreactive [facility] Comment:Antibodies to HCV no t detected; does not exclude early acuteHCV infection. Blood Venous blood specimen / Unknown 08/21/2024 11:39 AM EST 08/21/2024 1:19 PM EST us Priyanka Orozco MD LAB BLOOD ORDERABLES Final Resul t Performing Organization Address [facility]/ZIP Co de Phone Number [facility] [address] [place] [phone] * Hepatitis B Core Antibody, Total (08/21/2024 11:39 AM EST) Pathologist [facility] Hepatitis B Core Antibody Nonreactive Nonreactive [facility] Blood Venous blood specimen / Unknown 08/21/2024 11:39 AM EST 08/21/2024 1:19 PM EST us Priyanka Orozco MD LAB BLOOD ORDERABLES Final Resul t Performing Organization Address [facility] Co de Phone Number [facility] [address] [place] [phone] * Hepatitis B Surface Antibody, Qualitative (08/21/2024 11:39 AM EST) Pathologist [facility] ~Hepatitis B Surface Antibody REACTIVE Nonreactive [facility] Comment:REACTIVE: > 11.99 mI U/mL Blood Venous blood specimen / Unknown 08/21/2024 11:39 AM EST 08/21/2024 1:19 PM EST us Priyanka Orozco MD LAB BLOOD ORDERABLES Final Resul t Performing Organization Address [facility] Co de Phone Number [facility] [address] [place] [phone] * (ABNORMAL) Hepatic Function Panel (08/21/2024 11:39 AM EST) Bilirubin, Total 0.4 0.0 - 1.0 mg/dL [facility] Bilirubin, Direct 0.1 0.0 - 0.5 mg/dL [facility] Aspartate Amino Transferase 32(H) 5 - 31 U/L [facility] Alanine Aminotransferase 41(H) 0 - 31 U/L [facility] Total Protein 7.4 6.5 - 8.0 g/dL [facility] Albumin Level 4.0 3.5 - 5.0 g/dL [facility] Alkaline Phosphatase 136(H) 39 - 117 U/L [facility] Blood Venous blood specimen / Unknown 08/21/2024 11:39 AM EST 08/21/2024 1:19 PM EST Priyanka Orozco MD LAB BLOOD ORDERABLES Final Resul t [facility] [address] [place] [phone] * Culture, Urine, Routine (08/02/2024 12:00 AM EDT) Urine Urine specimen obtained by clean catch procedure / Unknown 08/02/2024 08/02/2024 Comment:UACC Narrative [facility] - 08/04/2024 8:23 AM EDT Escherichia coli Quant > 100,000 cfu/mL Escherichia coli: Ampicillin >=32(R) Escherichia coli: Cefazolin <=4(S) Escherichia coli: Ceftriaxone <=0.25(S) Escherichia coli: Ciprofloxacin <=0.25(S) Escherichia coli: Gentamicin <=1(S) Escherichia coli: Nitrofurantoin <=16(S) Escherichia coli: Trimethoprim/Sulfamethoxazole <=20(S) Specimen Source: Urine clean catch Priyanka Orozco MD LAB MICROBIOLOGY - GENERAL ORDER DEMETRICE Final Result [facility] [address] [place] [phone] documented in this encounter Visit Diagnoses Diagnosis Transaminitis- Primary Nonspecific elevation of levels of transaminase or lactic acid dehydrogenase (LDH) documented in this encounter Care Teams Psychiatry Instructor Relationship Specialty Start Date End Date Priyanka Orozco MD [address] [place] [phone] PCP - General Family Medicine 11/25/21 documented as of this encounter
--- OUTSIDE RECORDS SUMMARY | 2025-01-25 09:48 | XMS_ITS | Encounter Summary ---
Author Organization [employer] [facility] Address [address] [place] [address] 7t h Floor [place] [id number] Care Team Providers Care Passenger Locomotive Engineer Name Role Phone Priyanka Orozco MD Primary Care Provider [phone] Encounter Details Date Type Department Care Team (Late Contact Info) Description 03/06/2024 Orders Only [facility] MEDICINE [address] [place] [phone] Priyanka Orozco MD [address] [place] [address] [phone] Social History Tobacco Use Types Packs/Day Years [...] 10:00 AM EDT Clinical Support [facility] MEDICINE [address] [place] [address] [phone] 04/02/2025 10:00 AM EDT Clinical Support [address] [phone] documented as of this encounter Visit Diagnoses Not on filedocumented in this encounter Care Teams Passenger Locomotive Engineer Relationship Specialty Start Date End Date Priyanka Orozco MD [address] [place] [address] [phone] PCP - General Family Medicine 11/25/21 documented as of this encounter
--- OUTSIDE RECORDS SUMMARY | 2025-01-25 09:48 | XMS_ITS | Clinical Summary ---
Author Organization [facility] Address [address] [place] [address] Phone Care Team Providers Care Process Helper Name Role Phone Priyanka Orozco MD Primary Care Provider [phone] Allergies Active Allergy Reactions Criticality Noted Date [...] age to complete this topic Meningococcal B Vaccine Aged Out No l onger eligible based on patient's age to complete this topic Pneumococcal Vaccine: Pediatrics (0 to 5 Years) and At-Risk Patients (6 to 64 Years) Aged Out No longer eligible based on patient's age to complete this topic RSV Immunization Patients Under 20 months Aged Out No longer eligible based on patient's age to complete this topic Insurance MEDICAID - [place] Care Teams Process Helper Relationship Specialty Start Date End Date Priyakna Orozoc MD [address] [place] [address] PCP - General Family Medicine 08/21/24
--- OUTSIDE RECORDS SUMMARY | 2025-01-25 09:48 | XMS_ITS | Encounter Summary ---
Author Organization Network [facility] Address [address] [facility] 7t h Floor [place] [phone] Care Team Providers Care Wheel Roller Name Role Phone Priyanka Orozco MD Primary Care Provider [phone] Encounter Details Date Type Department Care Team (Latest Contact Info) Description 12/12/2020 Abstract [facility] CONVERSIONS Dental, Provider, DDS Social History [...] Description 02/12/2025 10:00 AM EDT Clinical Support [facility] MEDICINE [address] [place] [phone] 04/02/2025 10:00 AM EDT Clinical Support [facility] MEDICINE [address] [place] [place] [phone] documented as of this encounter Visit Diagnoses Not on filedocumented in this encounter Care Teams Wheel Roller Relationship Specialty Start Date End Date Priyanka Orozco MD [address] [place] [phone] PCP - General Family Medicine 11/25/21 documented as of this encounter
[2025-01-25 11:32] LABS: MANUAL DIFF FLAG NO
[2025-01-25 11:47] LABS: Basophils Percent Auto 0.8 % (0-2); Eosinophils Absolute Auto 0.1 X10*3/uL (0.0-0.4); Eosinophils Percent Auto 1.4 % (0-4); Hematocrit 42.5 % (37.0-47.0); Hemoglobin 14.2 g/dl (12.0-16.0); Imm Gran Abs Auto 0.01 X10*3/uL (0.00-0.03); Imm Gran Pct Auto 0.2 % (0.0-0.4); Lymphocytes Absolute Auto 2.1 X10*3/uL (1.2-4.9); Lymphocytes Percent Auto 41.5 % (20-40); Mean Corpuscular HGB Conc 33.4 g/dl (31.0-35.0); Mean Corpuscular Hemoglobin 28.3 pg (27.0-33.0); Mean Corpuscular Volume 84.8 fL (80.0-98.0); Monocytes Absolute Auto 0.3 X10*3/uL (0.1-1.2); Monocytes Percent Auto 6.3 % (2-11); Neutrophils Absolute Auto 2.5 x10*3/uL (2.0-8.3); Neutrophils Percent Auto 49.8 % (45-73); Platelet Count 368 X10*3/uL (160-400); Red Blood Count 5.01 X10*6/uL (4.20-5.50); Red Cell Distribution Width 13.4 % (11.0-16.0); White Blood Count 5.1 X10*3/uL (4.8-10.8)
[2025-01-25 11:57] LABS: Estimated Average Glucose 117 mg/dL; Hemoglobin A1C 145.6137 umol/L; Hemoglobin A1c % 5.7 % (<6.0); Total Hemoglobin (HGBA1C) 3807.4722 umol/L
[2025-01-25 12:14] LABS: Alanine Aminotransferase 26 U/L (0-31); Albumin Level 4.4 g/dL (3.5-5.0); Alkaline Phosphatase 101 U/L (39-117); Anion Gap 12 (12-20); Aspartate Amino Transferase 22 U/L (5-31); Bilirubin Total 0.4 mg/dL (0.0-1.0); Blood Urea Nitrogen 11 mg/dL (9-16); Calcium 9.4 mg/dL (8.4-10.2); Carbon Dioxide 25 mmol/L (22-29); Chloride 109 mmol/L (96-108); Estimated Glomerular Filt Rate > 60; Glucose Random 114 mg/dL (60-115); Iron 62 mcg/dL (30-160); Percent Iron Saturation 19 % (15-50); Potassium 3.8 mmol/L (3.3-5.1); Sodium 142 mmol/L (135-145); Total Iron Binding Capacity 332 mcg/dL (228-428); Total Protein 7.8 g/dL (6.5-8.0); Unsaturated Iron Binding 270 ug/dL
[2025-01-25 12:32] LABS: Folate 13.3 ng/mL (> or = 4.0); Vitamin B12 482 pg/mL (200-900)
[2025-01-25 12:35] LABS: Ferritin 54 ng/mL (10-122); TSH reflex Free T4 0.43 uIU/mL (0.32-4.0); Vitamin D 25-OH Total 24.7 ng/mL (>30)
== END 2025-01-25 09:25 | disposition home or self-care (01) ==
LOC: HO.HHCL 09:24
PROVIDERS: Visit Provider Family Medicine
DX: D51.9 Vitamin B12 deficiency anemia, unspecified (principal); E56.9 Vitamin deficiency, unspecified; R53.83 Other fatigue; E66.3 Overweight
CPT/HCPCS: 36415; 80053; 82306; 82607; 82728; 82746; 83036; 83540; 84443; 85025

== ENCOUNTER 2025-06-21 13:14 | Outpatient (REF) | payer MEDICAID, SELFPAY ==
--- NOTE | ~2025-06-21 | US_ITS ---
EXAMINATION: US LOWER EXTREMITY VENOUS (REFLUX EXAM), BILATERAL CLINICAL INFORMATION: Evaluation of painful varicose veins EXAMINATION: US LOWER EXTREMITY VENOUS (REFLUX EXAM), BILATERAL CLINICAL INFORMATION: Varicose veins of the right lower extremity with inflammation COMPARISON: None. TECHNIQUE: Color flow triplex imaging and compression Doppler was performed to evaluate both the deep and the superficial systems bilaterally. To evaluate the superficial system, the examination was performed in the upright position. Color-flow Doppler ultrasound and compression ultrasound were utilized. In addition, maneuvers were utilized to demonstrate reflux. FINDINGS: 1. DEEP VENOUS ULTRASOUND OF THE RIGHT LOWER EXTREMITY: Common Femoral Vein: Compressible, normal respiratory variation and augmented flow. Femoral Vein: Compressible, normal color flow and augmentation. Popliteal Vein: Compressible, normal augmentation. Deep Reflux: There is no evidence of reflux in the deep system in either the common femoral vein, superficial femoral or the popliteal vein. 2. SUPERFICIAL ULTRASOUND WITH DOPPLER OF RIGHT LOWER EXTREMITY: GREAT SAPHENOUS VEIN: Saphenofemoral Junction: 1.1 cm; Reflux: 0 ms Proximal Thigh: 0.7 cm; Reflux: 1400 ms Mid Thigh: 0.3 cm; Reflux: 0 ms Distal Thigh: 0.4 cm; Reflux: 0 ms At Knee: 0.4 cm; Reflux: 0 ms Below Knee/Proximal Calf: 0.3 cm; Reflux: 0 ms Mid Calf: 0.2 cm; Reflux: 1400 ms Ankle/Distal Calf: 0.2 cm; Reflux: 0 ms Lateral / Medial accessory GREAT SAPHENOUS VEIN: None imaged. SMALL SAPHENOUS VEIN: Drainage: Thigh extension Saphenopopliteal Junction: 0.2 cm; Reflux: 0 ms Mid calf: 0.2 cm; Reflux: 0 ms Distal: 0.2 cm; Reflux: 0 ms VEIN OF GIACOMINI: Size: 0.2 cm Reflux: 0 ms PERFORATORS: Location: Greater saphenous vein, mid thigh Size: 0.3 cm Reflux: 0 ms VARICOSITIES > 3mm: Location: Greater saphenous vein, proximal thigh Size: 0.5 cm Reflux: >2500 ms Location: Greater saphenous vein, proximal calf Size: 0.5 cm Reflux: 2000 ms Location: Greater saphenous vein, midcalf Size: 0.3 cm Reflux: 0 ms Location: Greater saphenous vein, distal calf Size: 0.4 cm Reflux: 0 ms Location: Greater saphenous vein, distal calf Size: 0.4 cm Reflux: 1700 ms 3. DEEP VENOUS ULTRASOUND OF THE LEFT LOWER EXTREMITY: Common Femoral Vein: Compressible, normal respiratory variation and augmented flow. Femoral Vein: Compressible, normal color flow and augmentation. Popliteal Vein: Compressible, normal augmentation. Deep Reflux: There is no evidence of reflux in the deep system in either the common femoral vein, superficial femoral or the popliteal vein. 4. SUPERFICIAL ULTRASOUND WITH DOPPLER OF LEFT LOWER EXTREMITY: GREAT SAPHENOUS VEIN: Saphenofemoral Junction: 0.9 cm; Reflux: 0 ms Proximal Thigh: 0.7 cm; Reflux: 1500 ms Mid Thigh: 0.3 cm; Reflux: > 2800 ms Distal Thigh: 0.4 cm; Reflux: > 2300 ms At Knee: 0.3 cm; Reflux: > 2500 ms Below Knee/Proximl calf: 0.4 cm; Reflux: 2000 ms Mid Calf: 0.3 cm; Reflux: 0 ms Distal Calf/Ankle: 0.2 cm; Reflux: 0 ms Lateral accessory GREAT SAPHENOUS VEIN: Saphenofemoral Junction: 0.3 cm; Reflux: 0 ms Mid Thigh: 0.4 cm; Reflux: 0 ms SMALL SAPHENOUS VEIN: Drainage: Thigh extension Saphenopopliteal Junction: 0.3 cm; Reflux: 0 ms Mid calf: 0.4 cm; Reflux: 0 ms Distal calf: 0.3 cm; Reflux: 0 ms VEIN OF GIACOMINI: Size: NA Reflux: NA PERFORATORS: Location: Small saphenous vein, distal Size: 0.1 cm Reflux: 0 ms Location: Small saphenous vein, distal Size: 0.2 cm Reflux: 0 ms Location: Greater saphenous vein, mid calf Size: 0.2 cm Reflux: 0 ms VARICOSITIES > 3mm: Location: Small saphenous vein, mid Size: 0.3 cm Reflux: 0 ms Location: Greater saphenous vein, distal thigh Size: 0.6 cm Reflux: > 2500 ms Location: Greater saphenous vein, proximal calf Size: 0.4 cm Reflux: 0 ms US/US venous insuf bilat IMPRESSION: Right: Venous insufficiency is demonstrated in the greater saphenous vein and within varicosities. Left: Venous insufficiency is demonstrates in the greater saphenous vein and a varicosity Electronically signed by: Lamonte Ortiz MD 06/21/2025 03:01 PM EDT
--- OUTSIDE RECORDS SUMMARY | 2025-06-21 13:27 | XMS_ITS | Clinical Summary ---
Author Organization [facility] Address [address] [place] [address] Phone Care Team Providers Care Grout Machine Tender Name Role Phone Priyanka Orozco MD Primary Care Provider [phone] Allergies Active Allergy Reactions Criticality Noted Date Comments Penicillins Hives Low 08/21/2024 Medications No known medications Active Problems No known active problems Encounters Date Type Department Care Team Description 04/10/2025 8:33 PM EDT - 04/11/2025 9:20 AM EDT Emergency [facility] Emergency [address] [place] [address] Carlee Healy DO Garvin, Meredith Kate, MD Cauchon, Matthew C, DO Post depression (Primary Dx) Discharge Disposition: Home or Self Care from Last 3 Months Medical History Medical History Date Comments Depression Post depression Social History Tobacco Use Types Packs/Day Years [...] Sign Reading Time Taken Comments Blood Pressure 123/85 04/11/2025 5:24 AM EDT Pulse 89 04/11/2025 5:24 AM EDT Temperature 36.9 C (98.4 F) 04/11/2025 5:24 AM EDT Respiratory Rate 16 04/11/2025 5:24 AM EDT Oxygen Saturation 97% 04/11/2025 5:24 AM EDT Inhaled Oxygen Concentration - - Weight 83.5 kg (184 lb) 04/10/2025 8:25 PM EDT Height 162.6 cm (5' 4 ) 04/10/2025 8:25 PM EDT Body Mass Index 31.58 04/10/2025 8:25 PM EDT Plan of Treatment Health Maintenance Due Date Last Done Comments Cervical Cancer Screening: Pap Smear 2011 Cholesterol Screening (Lipid Panel) 09/19/2022 Social Influencers of Health Screening 09/19/2022 Depression Screening 10/17/2024 COVID-19 Vaccine ( season) 2025 10/02/2021, 11/27/2020, 10/30/2020 Influenza Vaccine (#1) 2025 , 10/02/2021, 07/02/2020, Additional history exists DTaP,Tdap,and [...] Screening Completed 03/31/2023 Hepatitis C Screening Completed 08/21/2024, 023 HIB Vaccines Aged Out No longer eligi ble based on patient's age to complete this topic Meningococcal B Vaccine Aged Out No l onger eligible based on patient's age to complete this topic Pneumococcal Vaccine: Pediatrics (0 to 5 Years) and At-Risk Patients (6 to 49 Years) Aged Out No longer eligible based on patient's age to complete this topic RSV Immunization Patients Under 20 months Aged Out No longer eligible based on patient's age to complete this topic Procedures Procedure Name Priority Date/Time Associated Diagnosis Comments ECG ANNOTATED 04/12/2025 ECG 12-LEAD STAT 04/10/2025 9:59 PM EDT CBC WITH AUTO DIFFERENTIAL STAT 04/10/2025 8:58 PM EDT SALICYLATE LEVEL STAT 04/10/2025 8:58 PM EDT ACETAMINOPHEN LEVEL STAT 04/10/2025 8 :58 PM EDT ETHANOL STAT 04/10/2025 8:58 PM EDT COMPREHENSIVE METABOLIC PANEL STAT 04/10/2025 8:58 PM EDT CBC AND DIFFERENTIAL STAT 04/10/2025 8:58 PM EDT METHADONE SCREEN, URINE STAT 04/10/2025 8:43 PM EDT PHENCYCLIDINE, URINE STAT 04/10/2025 8:43 PM EDT BUPRENORPHINE SCREEN, URINE STAT 04/10/2025 8:43 PM EDT DRUG ABUSE SCREEN 8A PANEL, URINE STAT 04/10/2025 8:43 PM EDT from Last 3 Months Results * ECG-Annotated (04/12/2025) us Provider Onbase MD ECG ORDERABLES Final Result * ECG 12 lead (04/10/2025 9:59 PM EDT) Pathologist [facility] Ventricular Rate ECG 73 BPM GEMUSE Atrial Rate 73 BPM GEMUSE P-R Interval 174 ms GEMUSE QRS Duration 80 ms GEMUSE Q-T Interval 378 ms GEMUSE QTc 416 ms GEMUSE P Wave [place] 57 degrees GEMUSE R [place] 35 degrees GEMUSE T [place] 27 degrees GEMUSE ECG Interpretation Normal sinus rhythm Normal ECG When compared with ECG of 19-APR-2019 20:14, Vent. rate has decreased BY 38 BPM Confirmed by Lizy REDDY YUFENG ([id number]) on 04/11/2025 7:57:21 AM GEMUSE 04/10/2025 9:59 PM EDT 04/11/2025 7:57 AM EDT us Carlee Healy DO ECG ORDERABLES Final Res ult GEMUSE * CBC auto differential (04/10/2025 8:58 PM EDT) [facility] WBC 6.3 4.8 - 10.8 K/mcL LAB HEMETOLOGY METHOD 04/10/2025 9:12 PM EDT [facility] RBC 4.60 3.80 - 4.80 M/mcL LAB HEMETOLOGY METHOD 04/10/2025 9:12 PM EDT [facility] Hemoglobin 13.5 11.5 - 16.0 g/dL LAB HEMETOLOGY METHOD 04/10/2025 9:12 PM EDT [facility] Hematocrit 40.2 35.0 - 47.0 % LAB HEMETOLOGY METHOD 04/10/2025 9:12 PM EDT [facility] MCV 86.8 79.0 - 98.0 FL LAB HEMETOLOGY METHOD 04/10/2025 9:12 PM EDT [facility] MCH 29.2 27.0 - 32.0 pcg LAB HEMETOLOGY METHOD 04/10/2025 9:12 PM EDT [facility] MCHC 33.6 32.0 - 37.0 g/dL LAB HEMETOLOGY METHOD 04/10/2025 9:12 PM EDT [facility] RDW 13.3 11.0 - 15.0 % LAB [facility]ETOLOGY [facility]10[facility] 367 130 - 400 K/mcL LAB HEMETOLOGY METHOD 04/10/2025 9[facility] MPV 9.5 7.0 - 11.0 FL LAB HEMETOLOGY METHOD 04/10/2025 9:[facility] NRBC 0.0 <1.0 % LAB HEMETOLOGY METHOD 04/10/2025 9:12 PM [facility] NRBC Absolute 0.00 <0.10 K/mcL LAB HEMETOLOGY METHOD 04/10/2025 9:12 PM [facility] Neutrophils Relative 43.4 % LAB HEMETOLOGY METHOD 04/10/2025 9:12 PM [facility] Lymphocytes Relative 47.8 % LAB HEMETOLOGY METHOD 04/10/2025 9:12 PM [facility] Monocytes Relative 7.0 % LAB HEMETOLOGY METHOD 04/10/2025 9:12 PM [facility] Eosinophils Relative 1.0 % LAB HEMETOLOGY METHOD 04/10/2025 9:12 PM [facility] Basophils Relative 0.6 % LAB HEMETOLOGY METHOD 04/10/2025 9:12 PM [facility] Immature Granulocytes Relative 0.2 % LAB HEMETOLOGY METHOD 04/10/2025 9:12 PM [facility] Neutrophils Absolute 2.73 1.50 - 7.00 K/mcL LAB HEMETOLOGY METHOD 04/10/2025 9:12 PM [facility] Lymphocytes Absolute 3.00 1.00 - 5.00 K/mcL LAB HEMETOLOGY METHOD 04/10/2025 9:12 PM EDT [facility] Monocytes Absolute 0.44 0.20 - 1.00 K/[facility] LAB HEMETOLOGY METHOD 04/10/2025 9:12 PM EDT [facility] Eosinophils Absolute 0.06 0.00 - 0.50 K/[facility] LAB HEMETOLOGY METHOD 04/10/2025 9:12 PM EDT [facility] Basophils Absolute 0.04 0.00 - 0.20 K/[facility] LAB HEMETOLOGY METHOD 04/10/2025 9:12 PM EDT [facility] Immature Granulocytes Absolute 0.01 0.00 - 0.03 K/[facility] LAB HEMETOLOGY METHOD 04/10/2025 9:12 PM EDT [facility] Blood Venous blood specimen / Unknown Venipuncture / Unknown 04/10/2025 8:58 PM EDT 04/10/2025 9:06 PM EDT us Luz SHELLEY LAB BLOOD ORDERABLES Final Resu lt Performing Organization Address City/[facility]/ZIP Co de Phone Number [facility] [address] [place] [address], * Ethanol (04/10/2025 8:58 PM EDT) Ethanol Level <3 0 - 10 mg/dL LAB CHEMISTRY METHOD 04/10/2025 9:32 PM EDT [facility] Blood Venous blood specimen / Unknown Venipuncture / Unknown 04/10/2025 8:58 PM EDT 04/10/2025 9:06 PM EDT us Luz SHELLEY LAB BLOOD ORDERABLES Final Resu lt [facility] [address] [place] [address], [place] [phone] * (ABNORMAL) Acetaminophen level (04/10/2025 8:58 PM EDT) Acetaminophen Level <2.0(L) 10.0 - 30.0 mcg/mL LAB CHEMISTRY METHOD 04/10/2025 9:36 PM EDT [facility] Blood Venous blood specimen / Unknown Venipuncture / Unknown 04/10/2025 8:58 PM EDT 04/10/2025 9:06 PM EDT [facility] LAB BLOOD ORDERABLES Final Resu lt [facility] [address] [place] [address], [place] [phone] * (ABNORMAL) Salicylate level (04/10/2025 8:58 PM EDT) Salicylate Level <1.7(L) 2.0 - 29.0 mg/dL LAB CHEMISTRY METHOD 04/10/2025 9:32 PM EDT [facility] Blood Venous blood specimen / Unknown Venipuncture / Unknown 04/10/2025 8:58 PM EDT 04/10/2025 9:06 PM EDT Luz [facility] LAB BLOOD ORDERABLES Final Resu lt [facility] [address] [place] [address], [place] [phone] * (ABNORMAL) Comprehensive metabolic panel (04/10/2025 8:58 PM EDT) Sodium 136 133 - 145 mmol/L LAB CHEMISTRY METHOD 04/10/2025 9:32 PM EDT [facility] Potassium 3.3(L) 3.5 - 5.5 mmol/L LAB CHEMISTRY METHOD 04/10/2025 9:32 PM [facility] Chloride 106 96 - 110 mmol/L LAB CHEMISTRY METHOD 04/10/2025 9:32 PM [facility] CO2 23 21 - 32 mmol/L LAB CHEMISTRY METHOD 04/10/2025 9:32 PM [facility] Anion Gap 7 3 - 11 LAB CHEMISTRY METHOD 04/10/2025 9:32 PM [facility] Glucose 108(H) 70 - 100 mg/dL LAB CHEMISTRY METHOD 04/10/2025 9:32 PM [facility] BUN 10 5 - 25 mg/dL LAB CHEMISTRY METHOD 04/10/2025 9:32 PM [facility] Creatinine 0.82 0.50 - 1.10 mg/dL LAB CHEMISTRY METHOD 04/10/2025 9:32 PM [facility] eGFR 96 >=60 mL/min/1. 73m2 LAB CHEMISTRY METHOD 04/10/2025 9:32 PM [facility] Comment:Calculation based on the Chronic Kidney Disease Epidemiology Collaboration (CKD-EPI) equation refit without adjustment for race. BUN/Creatinine Ratio 12.2 LAB CHEMISTRY METHOD 04/10/2025 9:32 PM [facility] Calcium 9.6 8.5 - 10.5 mg/dL LAB CHEMISTRY METHOD 04/10/2025 9:32 PM [facility] AST (SGOT) 20 10 - 42 unit/L LAB CHEMISTRY METHOD 04/10/2025 9:32 PM [facility] ALT (SGPT) 33 10 - 60 unit/L LAB CHEMISTRY METHOD 04/10/2025 9:32 PM [facility] Alkaline Phosphatase 121 42 - 121 unit/L LAB CHEMISTRY METHOD 04/10/2025 9:32 PM [facility] Total Protein 7.9 6.0 - 8.0 g/dL LAB CHEMISTRY METHOD 04/10/2025 9:32 PM EDT [facility] Albumin 4.1 3.2 - 5.0 g/dL LAB CHEMISTRY METHOD 04/10/2025 9:32 PM EDT [facility] Total Bilirubin 0.5 0.0 - 1.4 mg/dL LAB CHEMISTRY METHOD 04/10/2025 9:32 PM EDT [facility] Blood Venous blood specimen / Unknown Venipuncture / Unknown 04/10/2025 8:58 PM EDT 04/10/2025 9:06 PM EDT us Luz SHELLEY LAB BLOOD ORDERABLES Final Resu lt [facility] [address] [place] [address], * Drug abuse screen 8a panel, urine (04/10/2025 8:43 PM EDT) Amphetamine Screen, Ur Negative Negative LAB CHEMISTRY METHOD 04/10/2025 9:33 PM EDT [facility] Comment:Certain OTC medicati ons containing ephedrine, phenylephrine, pseudoephedrine and phenylpropanolamine can cause false positive results. Barbiturate Screen, Ur Negative Negative LAB CHEMISTRY METHOD 04/10/2025 9:33 PM EDT [facility] Benzodiazepine Screen, Ur Negative Negative LAB CHEMISTRY METHOD 04/10/2025 9:33 PM EDT [facility] Cocaine Screen, Ur Negative Negative LAB CHEMISTRY METHOD 04/10/2025 9:33 PM EDT [facility] Opiate Screen, Ur Negative Negative LAB CHEMISTRY METHOD 04/10/2025 9:33 PM EDT [facility] Cannabinoid (THC) Screen, Ur Negative Negative LAB CHEMISTRY METHOD 04/10/2025 9:33 PM EDT [facility] Comment:Specimens from patie nts taking pantoprazole sodium (Protonix) have been shown to produce false positive results. Oxycodone Screen, Ur Negative Negative LAB CHEMISTRY METHOD 04/10/2025 9:33 PM EDT [facility] Fentanyl, Ur Negative Negative LAB CHEMISTRY METHOD 04/10/2025 9:33 PM EDT [facility] Urine Urine specimen obtained by clean catch procedure / Unknown Non-blood Collection / Unknown 04/10/2025 8:43 PM EDT 04/10/2025 9:06 PM EDT [facility] - 04/10/2025 9:33 PM EDT Assay cutoffs: Amphetamines 1000 ng/mL Barbiturates 200 ng/mL Benzodiazepines 200 ng/mL Cocaine 300 ng/mL Fentanyl 1 ng/mL Opiates 300 ng/mL Oxycodone 100 ng/mL THC 50 ng/mL Semi-quantitative assay for screening purposes only. Unconfirmed screening result should not be used for non-medical purposes. *ALTERNATE METHOD CONFIRMATION DONE UPON REQUEST ONLY* [facility] LAB URINE ORDERABLES Final Resu lt [facility] [address] [place] [address], [place] [phone] * Buprenorphine screen, urine (04/10/2025 8:43 PM EDT) [facility] Signature Buprenorphine Screen Urine Negative Negative LAB CHEMISTRY METHOD 04/10/2025 9:33 PM EDT [facility] Urine Urine specimen obtained by clean catch procedure / Unknown Non-blood Collection / Unknown 04/10/2025 8:43 PM EDT 04/10/2025 9:06 PM EDT Narrative [facility] - 04/10/2025 9:33 PM EDT Assay cutoff 5 ng/mL Semi-quantitative assay for screening purposes only. Unconfirmed screening result should not be used for non-medical purposes. *ALTERNATE METHOD CONFIRMATION DONE UPON REQUEST ONLY* us Luz SHEL[facility] LAB URINE ORDERABLES Final Resu lt Performing Organization Address [facility]/ZIP Co de Phone Number [facility] [address] [place] [address], [place] [phone] * Methadone, urine (04/10/2025 8:43 PM EDT) Methadone Screen, Urine Negative Negative LAB CHEMISTRY METHOD 04/10/2025 9:33 PM EDT [facility] Comment: Assay cutoff 300 ng/mL Semi-quantitative assay for screening purposes only. Unconfirmed screening result should not be used for non-medical purposes. *ALTERNATE METHOD CONFIRMATION DONE UPON REQUEST ONLY* Urine Urine specimen obtained by clean catch procedure / Unknown Non-blood Collection / Unknown 04/10/2025 8:43 PM EDT 04/10/2025 9:06 PM EDT [facility] LAB URINE ORDERABLES Final Resu lt Performing Organization Address [facility] Co de Phone Number [facility] [address] [place] [address], [place] [phone] * Phencyclidine, urine (04/10/2025 8:43 PM EDT) PCP Scrn, Ur Negative Negative LAB CHEMISTRY METHOD 04/10/2025 9:33 PM EDT [facility] Comment: Assay cutoff 25 ng/mL Semi-quantitative assay for screening purposes only. Unconfirmed screening result should not be used for non-medical purposes. *ALTERNATE METHOD CONFIRMATION DONE UPON REQUEST ONLY* Urine Urine specimen obtained by clean catch procedure / Unknown Non-blood Collection / Unknown 04/10/2025 8:43 PM EDT 04/10/2025 9:06 PM EDT us Luz SHELLEY LAB URINE ORDERABLES Final Resu lt Performing Organization Address [facility]/ZIP Co de Phone Number [facility] [address] [place] [address], [place] [phone] from Last 3 Months Insurance MEDICAID - [place] Care Teams Grout Machine Tender Relationship Specialty Start Date End Date Priyanka Orozco MD [address] [place] [phone] PCP - General Family Medicine 08/21/24
== END 2025-06-21 13:15 | disposition home or self-care (01) ==
LOC: HO.US 13:14
PROVIDERS: PCP Family Medicine; Visit Provider Family Medicine
DX: I83.813 Varicose veins of bilateral lower extremities with pain (principal)
CPT/HCPCS: 93970

== ENCOUNTER → 2025-06-21 13:16 | Outpatient (BNV) | payer MEDICAID, SELFPAY | PROVIDERS: PCP Family Medicine; Visit Provider Radiology Diagnostic Radiology | DX: I87.2 Venous insufficiency (chronic) (peripheral) (principal) | CPT/HCPCS: 93970 ==

== ENCOUNTER 2025-09-25 15:17 | Outpatient (REF) | payer MEDICAID, SELFPAY ==
--- OUTSIDE RECORDS SUMMARY | 2025-09-23 09:30 | XMS_ITS | Encounter Summary ---
Author Organization [employer] Address [address] [place] [address] Care Team Providers Care Derrick Man Name Role Phone Priyanka Orozco MD Primary Care Provider [phone] Reason for Visit * Reason Comments Injections Encounter Details Date Type Department Care Team ([facility] st Contact Info) Description 09/23/2025 9:30 AM EST Nurse Only [facility] [address] [place], [place] [phone] Brenda Motley, RN Anemia due to vitamin B12 deficiency, unspecified B12 deficiency type Social History Tobacco Use Types Packs/Day Years Used Date Smoking Tobacco: Never Smokeless Tobacco: Never Alcohol Use Standard Drinks/Week Comments Not Currently 0 (1 standard drink = 0.6 oz pur e alcohol) Depression Answer Date Recorded Patient Health Questionnaire-9 Score 11 04/02/2025 Patient Health Questionnaire-9 Score 11 04/02/2025 Last PHQ-9: Questionnaire Data Not on file 0 04/02/2025 Housing Stability Answer Date Recorded What is your housing situation today? I have rikki reynoso 04/02/[address] you li ve. Do you have problems with any of the following? None of the above 04/02/2025 Food Insecurity Answer Date Recorded Within the past 12 months, y ou worried that your food would run out before you got money to buy more: Never True 04/02/2025 Within the past 12 months,th e food you bought just didn't last and you didn't have enough money to get more: Never True Transportation Answer Date Recorded In the past 12 months, has l ack of transportation kept you from medical appts, meetings, work or from getting things needed for daily living? No 04/02/2025 Utilities Answer Date Recorded In the past 12 months, has t he electric, gas, oil or water company threatened to shut off services in your home? No 04/02/2025 Depression Answer Date Recorded Patient Health Questionnaire-2 Score 4 04/02/2025 Internet Access Answer Date Recorded Internet Access Q1 Yes 04/02/2025 Internet Access Q2 Not on file 04/02/2025 Comments Unknown Sex and Gender Information Value Date Recorded Sex Assigned at Female 08/16/2022 10:26 AM EDT Legal Sex Female 10:26 AM EDT Gender Identity Female 08/16/2022 10:26 AM EDT Sexual Orientation Straight 08/16/2022 10 :26 AM EDT documented as of this encounter Progress Notes * Brenda Motley RN - 09/23/2025 9:30 AM EST SUBJECTIVE: Pamela Louie is a 35 y.o. year old female who presents for Injections Preferred language for medical information: Albanian Fuel Cell Binder needed: No Standing Ordered verified: Yes, standing order expiration date: 01/11/26 Pamela Louie denies any difficulties with previous injection that was received. Allergies[1] OBJECTIVE: B-12 injection given in left deltoid, medication was tolerated well. ASSESSMENT: Vitamin B12 deficiency PLAN: Pamela Louie will return for next injection on 10/23/2025. [x] Advised to monitor injection site for any increased redness or swelling [x] Next appointment given Pamela Louie agrees with plan of care and verbalized understanding of instructions/education. Brenda Motley RN [1] Allergies Allergen Reactions Depo-Provera [Medroxyprogesterone Acetate] Hives Penicillins Other reaction(s): Hives/Skin Rash documented in this encounter Plan of Treatment Upcoming Encounters Date Type Department Care Team (Late st Contact Info) Description 10/22/2025 9:30 AM EST Procedure Visit [facility] [address] [place] [phone] Saritha Oro CNM [address] [place] [address] 10/23/2025 2:00 PM EST Nurse Only [facility] [address] [place] [address] 11/22/2025 9:00 AM EST Office Visit [facility] [address] [facility] [place] [address] Radha Phelps MD [address] [facility] [place] [address] documented as of this encounter Visit Diagnoses [...] B12 deficiency, unspecified B12 deficiency type Given 09/23/2025 9:24 AM EST 1,000 mcg Left Deltoid Given 08/22/2025 3:34 PM EST 1,000 mcg Le ft Deltoid Given 07/22/2025 9:00 AM EDT 1,000 mcg Le ft Deltoid documented in this encounter Additional Health Concerns Assessment Noted Time PHQ-9 Depression Total Score: 11 025 11:50 AM EDT documented as of this encounter Care Teams Derrick Man Relationship Specialty Start Date End Date Priyanka Orozco MD [facility] [place] [address] PCP - General Family Medicine 11/25/21 documented as of this encounter
[2025-09-25 16:20] LABS: MANUAL DIFF FLAG NO
[2025-09-25 16:29] LABS: Hematocrit 39.9 % (37.0-47.0); Hemoglobin 13.3 g/dl (12.0-16.0); Imm Gran Abs Auto 0.01 X10*3/uL (0.00-0.03); Imm Gran Pct Auto 0.2 % (0.0-0.4); Lymphocytes Absolute Auto 2.4 X10*3/uL (1.2-4.9); Mean Corpuscular HGB Conc 33.3 g/dl (31.0-35.0); Mean Corpuscular Hemoglobin 28.4 pg (27.0-33.0); Mean Corpuscular Volume 85.1 fL (80.0-98.0); NRBC Abs Auto 0.000 X10*3/uL (0.0-0.012); NRBC Pct Auto 0.0 /100WBC (0.0-0.2); Platelet Count 353 X10*3/uL (160-400); Red Blood Count 4.69 X10*6/uL (4.20-5.50); Reticulocytes Absolute 0.069 X10*6/uL (0.026-0.095); White Blood Count 5.9 X10*3/uL (4.8-10.8)
[2025-09-25 16:59] LABS: Cholesterol 181 mg/dL (<200); HDL Cholesterol 44 mg/dL (>40); Iron 36 mcg/dL (30-160); Percent Iron Saturation 11 % (15-50); Total Iron Binding Capacity 325 mcg/dL (228-428); Triglycerides 132 mg/dL (<150); Unsaturated Iron Binding 289 ug/dL
[2025-09-25 17:17] LABS: Ferritin 57 ng/mL (10-122)
[2025-09-25 17:28] LABS: Folate 10.6 ng/mL (> or = 4.0); Vitamin B12 996 pg/mL (200-900)
[2025-09-25 17:43] LABS: Reflex LDLD? No
--- OUTSIDE RECORDS SUMMARY | 2025-09-25 23:49 | XMS_ITS | Encounter Summary ---
Author Organization [facility] [employer] [facility] Address [address] [place] [address] 7 [place] [address] Care Team Providers Care Terrazzo Worker Helper Name Role Phone Priyanka Orozco MD Primary Care Provider [phone] Encounter Details Date Type Department Care Team (Late Contact Info) Description 03/06/2024 Orders Only [facility] [address] [place] [address] [phone] Priyanka Orozco MD [address] [place] [address] [phone] Social History Tobacco Use Types Packs/Day Years [...] Department Care Team (Late Contact Info) Description 10/22/2025 9:30 AM EST Procedure Visit [address] [phone] Saritha Oro CNM [address] [place], [place] [phone] 10/23/2025 2:00 PM EST Nurse Only [address] [phone] 11/22/2025 9:00 AM EST Office Visit [address] [phone] Radha Phelps MD [address] [place] [address] documented as of this encounter Visit Diagnoses Not on filedocumented in this encounter Care Teams Terrazzo Worker Helper Relationship Specialty Start Date End Date Priyanka Orozco MD [address] [place] [address] PCP - General Family Medicine 11/25/21 documented as of this encounter
--- OUTSIDE RECORDS SUMMARY | 2025-09-25 23:49 | XMS_ITS | Encounter Summary ---
Author Organization [employer] Address [address] [facility] 7t [place] [address] Care Team Providers Care Shredded Filler Machine Wrapper Layer Name Role Phone Priyanka Orozco MD Primary Care Provider [phone] Encounter Details Date Type Department Care Team (Late st Contact Info) Description 07/17/2025 Orders Only [facility] [address] [place] [address] Priyanka Orozco MD [address] [place], [place] [phone] Social History Tobacco Use Types Packs/Day Years [...] the past 12 months, has t he [employer], gas, oil or water [employer] threatened to shut off services in your [...] Description 10/22/2025 9:30 AM EST Procedure Visit [address] [address] Saritha Oro CNM [address] [place] [address] 10/23/2025 2:00 PM EST Nurse Only [address] [address] 11/22/2025 9:00 AM EST Office Visit [address] [address] Radha Phelps MD [address] [place] [phone] documented as of this encounter Visit Diagnoses Not on filedocumented in this encounter Additional Health Concerns Assessment Noted Time PHQ-9 Depression Total Score: 11 025 11:50 AM EDT documented as of this encounter Care Teams Shredded Filler Machine Wrapper Layer Relationship Specialty Start Date End Date Priyanka Orozco MD [address] [place] [phone] PCP - General Family Medicine 11/25/21 documented as of this encounter
--- OUTSIDE RECORDS SUMMARY | 2025-09-25 23:49 | XMS_ITS | Encounter Summary ---
Author Organization [employer] Address [address] [facility] 7t [place] [address] Care Team Providers Care Railway Signalling Engineer Name Role Phone Priyanka Orozco MD Primary Care Provider [phone] Reason for Referral * Consultation (Urgent) - Closed Specialty Diagnoses / Procedures Referred By Contac t Referred To Contact Diagnoses , unspecified gestational age Priyanka Orozco MD [address] [place] [address] Phone: tel: fax: Tracy Ramírez [address] [address] Phone: tel: fax: Referral ID Status Reason Start Date Expiration Date V isits Requested Visits Authorized [id number] Closed Specialty Services Required 01/05/2024 01/04/2025 30 30 Encounter Details Date Type Department Care Team (Late st Contact Info) Description 12/27/2023 Orders Only [facility] [address] [place] [address] [phone] Priyanka Orozco MD [address] [place] [phone] , unspecified gestational age (Primary Dx); Vitamin [...] Description 10/22/2025 9:30 AM EST Procedure Visit [address] [address] Saritha Oro CNM [address] [place] [address] 10/23/2025 2:00 PM EST Nurse Only [address] [phone] 11/22/2025 9:00 AM EST Office Visit [address] [address] Radha Phelps MD [address] [place] [phone] Scheduled Referrals Name Type Priority Associated Diagnoses Orde r Schedule Referral to Obstetrics / Gynecology Outpatient Referral Urgent , unspecified gestational age Expected: 01/05/2024 (Approximate), Expires: 01/04/2025 documented as of this encounter Visit Diagnoses Diagnosis , unspecified gestational age- Primary Vitamin B12 deficiency Other B-complex deficiencies documented in this encounter Care Teams Railway Signalling Engineer Relationship Specialty Start Date End Date Priyanka Orozco MD [address] [place] [phone] PCP - General Family Medicine 11/25/21 documented as of this encounter
--- OUTSIDE RECORDS SUMMARY | 2025-09-25 23:49 | XMS_ITS | Encounter Summary ---
Author Organization [employer] Address [address] [place] [address] Care Team Providers Care Broadcast Chief Engineer Name Role Phone Priyanka Orozco MD Primary Care Provider [phone] Reason for Referral * Consultation (Routine) - Closed Specialty Diagnoses / Procedures Referred By Contac t Referred To Contact Obstetrics and Gynecology Diagnoses Less than 8 weeks gestation of Priyanka Orozco MD [address] [place] [address] Phone: tel: fax: [address] Phone: tel: fax: Referral ID Status Reason Start Date Expiration Date V isits Requested Visits Authorized [id number] Closed Specialty Services Required 12/08/2023 12/07/2024 30 30 Encounter Details Date Type Department Care Team (Late st Contact Info) Description 12/01/2023 Orders Only [facility] [address] [place] [phone] Priyanka Orozco MD [address] [place] [address] [phone] Less than 8 weeks gestation of (Primary [...] Description 10/22/2025 9:30 AM EST Procedure Visit [address] [address] Saritha Oro CNM [address] [place], [place] [phone] 10/23/2025 2:00 PM EST Nurse Only [address] [phone] 11/22/2025 9:00 AM EST Office Visit [address] [phone] Radha Phelps MD [address] [place] [address] Scheduled Referrals Name Type Priority Associated Diagnoses Order Schedule Referral to Obstetrics / Gynecology Outpatient Referral Routine Less than 8 weeks gestation of Expected: 12/08/2023 (Approximate), Expires: 12/08/2024 documented as of this encounter Visit Diagnoses Diagnosis Less than 8 weeks gestation of - Primary documented in this encounter Care Teams Broadcast Chief Engineer Relationship Specialty Start Date End Date Priyanka Orozco MD [address] [place] [address] [phone] PCP - General Family Medicine 11/25/21 documented as of this encounter
--- OUTSIDE RECORDS SUMMARY | 2025-09-25 23:49 | XMS_ITS | Clinical Summary ---
Author Organization [employer] Address [address] [facility] [address] [place] [address] Care Team Providers Care Agricultural Produce Washer Name Role Phone Priyanka Orozco MD Primary Care Provider [phone] Allergies Active Allergy Reactions Criticality Noted Date Comments Medroxyprogesterone Acetate Hives 01/18/20 25 Penicillins 07/12/2014 Other reaction(s): Hives/Skin Rash Medications * This document contains information received from the source organization and may not represent a complete record from that organization. melatonin 5 MG tablet Take 1 tablet 2-3 hours before your desired bedtime as needed for difficulty sleeping 30 tablet 3 024 Active fluticasone (Flonase Allergy Relief) 50 MCG/ACT nasal spray Administer 1 spray into each nostril Once per day. Shake gently. Before first use, prime pump. After use, clean tip and replace cap. 16 g 12 024 Active cyanocobalamin (Vitamin B-12) 1000 MCG/ML injectionIndic ations:Vitamin B12 deficiency INJECT 1 ML INTRAMUSCULARLY ONCE EVERY MONTH 3 mL 3 09/23/20 25 9:13 AM EST 024 Active cholecalcifero l (Vitamin D-3) 25 MCG (1000 UT) tablet Take 1 tablet (25 mcg) by mouth Once per day. 90 tablet 3 025 Active Acetaminophen 500 MG capsuleIndicat ions:Varicose veins of bilateral lower extremities with pain Take 1 or 2 capsules by mouth every 8 hours as needed for pain or fever 50 capsule 1 025 Active famotidine (Pepcid) 20 MG tabletIndicati ons:Gastroesop hageal reflux disease, unspecified whether esophagitis present Take 1 tablet (20 mg) by mouth 2 times daily. 60 tablet 11 025 2025 Active hydrocortisone 1 % ointment Apply topically 2 times daily. 56 g 3 Active cetirizine (ZyrTEC) 10 MG tablet Take 1 tablet (10 mg) by mouth Once per day. 90 tablet 3 025 2025 Active Drospirenone (Slynd) 4 MG tablet Take 1 tablet by mouth Once per day. 28 tablet 11 Active escitalopram (Lexapro) 10 MG tablet Take 1 tablet (10 mg) by mouth Once per day. 90 tablet 3 025 2024 Active traZODone (Desyrel) 50 MG tablet Take 1 tablet (50 mg) by mouth at bedtime. 90 tablet 3 Active tretinoin (Retin-A) 0.025 % creamIndicatio ns:Acne vulgaris Apply topically at bedtime. 45 g 2 025 2025 Active ibuprofen 600 MG tabletIndicati ons:Varicose veins of bilateral lower extremities with pain Take 1 tablet (600 mg) by mouth every 8 (eight) hours if needed for mild pain. 50 tablet 1 09/11/20 25 3:29 PM EST Active ibuprofen 600 MG tabletIndicati ons:Varicose veins of bilateral lower extremities with pain Take 1 tablet (600 mg) by mouth every 8 (eight) hours if needed for mild pain. 50 tablet 1 025 2024 Discontinued(R eorder (will not trigger notification to Pharmacy)) tretinoin (Retin-A) 0.025 % creamIndicatio ns:Acne vulgaris Apply topically at bedtime. 45 g 2 025 2024 Discontinued(R eorder (will not trigger notification to Pharmacy)) Hospital, Clinic, or Other Facility Administered Medication Ordered Dose Route Frequency Start Date End Date Status cyanocobalamin (Vitamin B-12) injection 1,000 mcgIndications:Anemia due to vitamin B12 deficiency, unspecified B12 deficiency type 1000 mcg IM Every 30 days 01/16/2025 01/11/2026 Ac tive Active Problems Problem Noted Date Diagnosed Date FRED (generalized anxiety disorder) 06/11/2025 Recurrent major depressive disorder 05/29/2025 Assessment & Plan (08/05/2025 5:30 AM EDT): - PHQ-9 score 11 in March 2025 - Patient tried counseling; she chose not to continue - Continue escitalopram 10 mg daily; may increase to 20 mg daily - Continue trazodone 50 mg nightly - Continue melatonin - Encourage nonpharmacological modality, especially exercise depression 01/01/2025 Assessment & Plan (01/02/2025 12:40 PM EDT): - Pt had child in 2023 - started on escitalopram 10 mg daily. Since 2024 - Referred to behavioral health service. Pt will contact behavioral health services to schedule consulting appointment Chronic constipation 01/01/2025 Assessment & Plan (08/05/2025 5:27 AM EDT): - Encourage fiber rich diet Neck pain 10/06/2023 Assessment & Plan (10/06/2023 8:56 AM EST): - chronic, likely muscle spasm - massage, heat - continue cyclobenzaprine prn Varicose veins of bilateral lower extremities wi th pain 10/06/2023 Assessment & Plan (08/05/2025 5:25 AM EDT): - leg elevation - compression stocking - referred to vascular specialist; upcoming appointment Assessment & Plan (10/06/2023 9:02 AM EST): - leg elevation - compression stocking - refer to vascular specialist History of frequent upper respiratory infection 09/01/2023 Assessment & Plan (09/01/2023 4:27 PM EST): Pt reports life long, severe URIs that are frequent. Will screen for IG A deficiency Anxiety and depression 02/22/2023 Assessment & Plan (08/05/2025 5:32 AM EDT): - with aerophobia - previously prescribed sertraline, but not taking everyday - started on escitalopram 10 mg daily in December 2024 - Referred to behavioral health service. Pt had few visits with integrated behavioral health service clinician, and referred to N. She had several visits with [facility] clinician, and now stopped. Patient currently declines. - insomnia is likely due to anxiety / depression. Recommended improving sleep hygiene. Judicious use of trazodone and melatonin. Assessment & Plan (04/08/2025 5:40 AM EDT): - with aerophobia - previously prescribed sertraline, but not taking everyday - started on escitalopram 10 mg daily in December 2024 - Referred to behavioral health service. Pt had few visits with integrated behavioral health service clinician, but has not established care. Patient currently declines. - insomnia is likely due to anxiety / depression. Recommended improving sleep hygiene. Assessment & Plan (01/02/2025 12:39 PM EDT): [...] continue loratadine and montelukast - referred to school psychology specialist for allergy test and immunotherapy. Assessment & Plan (10/06/2023 9:00 AM EST): - continue loratadine and montelukast - referred to school psychology specialist for allergy test and immunotherapy. Assessment & Plan (02/22/2023 5:17 AM EDT): - continue loratadine and montelukast - refer to school psychology specialist for allergy test and immunotherapy. Dental plaque 01/04/2023 Open protestant margins 01/04/2023 Acne vulgaris 12/14/2022 Assessment & Plan (08/05/2025 5:35 AM EDT): - seen in Derm clinic - Previously tried medications: Spironolactone; Accutane - Patient stopped Accutane when she became and was breast-feeding - Plan to start Accutane again - Currently being prescribed minocycline and tretinoin until she restarts Accutane - Patient is not having any intimate relationship and declines contraception Assessment & Plan (05/27/2023 6:17 AM EDT): [...] B12 deficiency anemia 12/14/2022 Assessment & Plan (08/05/2025 5:27 AM EDT): - continue vitamin B12 IM - recheck lab Assessment & Plan (01/02/2025 12:40 PM EDT): [...] Problem Noted Date Diagnosed Date Resolved Date Hives 08/10/2024 08/05/2025 Assessment & Plan (04/08/2025 5:33 AM EDT): >>ASSESSMENT AND PLAN FOR RASH DUE TO ALLERGY WRITTEN ON 08/10/2024 11:44 AM BY MARS SMALLS MD Try to identify and avoid trigger I will prescribe loratadine I will prescribe prednisone only 20mg once a day (do not use breast milk after taking medication (use only once a day formula for baby) Triamcinolone locally BID if needed I will refer her to school psychology specialist Assessment & Plan (04/08/2025 5:34 AM EDT): - Seen in the walk-in clinic in Jul 2024 - Most recently hypersensitivity reaction after depo-provera in January 2025, uncertain if it was an offending agent - refer to school psychology specialist for identifying allergens and treatment plan - optimize treatment for allergy Dry mouth 10/04/2023 08/01/2024 Assessment & Plan [...] Encounters Date Type Department Care Team Description 09/23/2025 9:30 AM EST Nurse Only [facility] [address] [place] [id number] Brenda Motley, MARLENA Anemia due to vitamin B12 deficiency, unspecified B12 deficiency type 09/23/2025 Travel 09/11/2025 Orders Only [facility] [address] [place] [phone] Priyanka Orozco MD Varicose veins of bilateral lower extremities with pain 08/30/2025 9:00 AM EST Office Visit [facility] [address] [place] [address] [phone] Radha Phelps MD Acne vulgaris 08/30/2025 Travel 08/23/2025 Telephone [facility] [address] [place] [phone] Jessica Aquino ND 08/22/2025 3:30 PM EST Nurse Only [facility] [address] [place] [phone] Heather Razo, MARLENA Anemia due to vitamin B12 deficiency, unspecified B12 deficiency type 08/22/2025 Travel 08/22/2025 Orders Only [address] [address] Priyanka Orozco MD Routine screening for STI (sexually transmitted infection) (Primary Dx) 07/22/2025 3:45 PM EDT Office Visit [facility] [address] [place] [phone] Priyanka Orozco MD Varicose veins of bilateral lower extremities with pain (Primary Dx); Chronic constipation; FRED (generalized anxiety disorder); Depressive disorder; Screening for diabetes mellitus; Screening for lipid disorders; Anemia due to vitamin B12 deficiency, unspecified B12 deficiency type; Moderate episode of recurrent major depressive disorder (CMS/HCC) (HCC); Anxiety and depression; Acne vulgaris 07/22/2025 Travel 07/19/2025 Telephone [facility] [address] [place] [address] [phone] Jessica Aquino ND 07/17/2025 Orders Only [facility] [address] [place] [phone] Priyanka Orozco MD 06/26/2025 Telephone [facility] [address] [place] [phone] Priyanka Orozco MD Durable Medical Equipment (DME Request: Compression Stockings) from Last 3 Months Immunizations Immunization Administration Dates Next Due DTaP 12/20/1994, 2,02/27/1991,09/14,1990 [...] Q2 Not on file 04/02/2025 Comments Unknown Intention Date Recorded No desire to become (finding) 1 Sex and Gender Information Value Date Recorded Sex Assigned at Female 08/16/2022 10:26 AM EDT Legal Sex Female 10:26 AM EDT Gender Identity Female 08/16/2022 10:26 AM EDT Sexual Orientation Straight 08/16/2022 10 :26 AM EDT Last Filed Vital Signs Vital Sign Reading Time Taken Comments Blood Pressure 118/76 08/30/2025 9:04 AM EST Pulse 93 08/30/2025 9:04 AM EST Temperature 36 C (96.8 F) 08/30/2025 9:04 AM EST Respiratory Rate 16 08/30/2025 9:04 AM EST Oxygen Saturation 99% 08/30/2025 9:04 AM EST Inhaled Oxygen Concentration - - Weight 82.6 kg (182 lb) 08/30/2025 9:04 AM EST Height 162.6 cm (5' 4 ) 08/30/2025 9:04 AM EST Body Mass Index 31.24 08/30/2025 9:04 AM EST Plan of Treatment Upcoming Encounters Date Type Department Care Team (Late st Contact Info) Description 10/22/2025 9:30 AM EST Procedure Visit [address] [phone] Saritha Oro CNM [address] [place] [address] 10/23/2025 2:00 PM EST Nurse Only [address] [address] 11/22/2025 9:00 AM EST Office Visit [address] [address] Radha Phelps MD [address] [place] [address] Health Maintenance Due Date Last Done Comments Dental Oral Exam 07/08/2023 01/04/2023 Dental Prophylaxis 07/08/2023 01/04/2023 Dental X-Ray: Bitewings 01/06/2024 01/04/2023 COVID-19 Vaccine ( season) 2025 10/02/2021, 11/27/2020, 10/30/2020 Influenza Vaccine (#1) 2025 , 10/02/2021, 07/02/2020, Additional history exists Depression Monitoring 10/02/2025 04/02/2025, 025 Disability Screening 04/02/2026 04/02/2025 SDOH Screening 04/02/2026 04/02/2025 Dental X-Ray: Full Mouth 06/07/2026 06/06/2023, 12/16 Alcohol/Substance Use Screening 07/22/2026 07/22/2025 Tobacco Screening 07/22/2026 07/22/2025 Family Planning (PISQ) 08/05/2026 08/05/2025 Cervical Cancer Screening 08/11/2026 HPV/Cotest 08/11/2026 08/11/2023 Pap Smear 08/11/2026 08/11/2023, 08/11/2023 Lipid Panel 09/25/2030 09/25/2025 DTaP/Tdap/Td Vaccines (9 - Td or Tdap) [...] Years) and At-Risk Patients (6 to 49) Years Aged Out No longer eligible based on patient's age to complete this topic RSV under 20 months Aged Out No longe r eligible based on patient's age to complete this topic Rotavirus Vaccines Aged Out No longer eligible based on patient's age to complete this topic Procedures Procedure Name Priority Date/Time Associated Diagnosis Comments VITAMIN B12/FOLATE, SERUM PANEL Routine 09/25/2025 3:38 PM EST Anemia due to vitamin B12 deficiency, unspecified B12 deficiency type RETICULOCYTE COUNT Routine 09/25/2025 3: 38 PM EST Anemia due to vitamin B12 deficiency, unspecified B12 deficiency type IRON AND TOTAL IRON BINDING CAPACITY Routine 09/25/2025 3:38 PM EST Anemia due to vitamin B12 deficiency, unspecified B12 deficiency type FERRITIN Routine 09/25/2025 3:38 PM EST Anemia due to vitamin B12 deficiency, unspecified B12 deficiency type CBC WITH AUTO DIFFERENTIAL Routine 09/25/2025 3:38 PM EST Anemia due to vitamin B12 deficiency, unspecified B12 deficiency type HEMOGLOBIN A1C Routine 09/25/2025 3:38 PM EST Screening for diabetes mellitus LIPID PANEL WITH REFLEX TO DIRECT LDL Routine 09/25/2025 3:38 PM EST Screening for lipid disorders HEPATITIS C AB W/REFL TO HCV RNA, [...] Recently Relevant to Health Maintenance Results * (ABNORMAL) Vitamin B12 (Cobalamin) and Folate Panel, Serum (09/25/2025 3:38 PM EST) Vitamin B12 996(H) 200 - 900 pg/mL [facility] Comment:NORMAL 200-900 PG/ML INDETERMINATE 160-199 PG/ML DEFICIENT < 160 PG/ML Folate 10.6 > or = 4.0 ng/mL [facility] Comment:Reference Values:> o r = 4.0 ng/mL< 4.0 ng/mL suggests folate deficiency Methotrexate, aminopterin and folinic acid(leucovorin) are chemotherapeutic agents whose molecularstructures are similar to folate; therefore, the Architectfolate assay cannot be used for patients using these drugs. Blood 09/25/2025 3:38 PM EST 09/25/2025 4:18 PM EST us Priyanka Orozco MD LAB BLOOD ORDERABLES Final Resul t [facility] [address] [place] [phone] * (ABNORMAL) Lipid Panel with Reflex to Direct LDL (09/25/2025 3:38 PM EST) Triglycerides 132 <150 mg/dL [facility] Comment:Desirable Triglyceri de: less than 150 mg/dLBorderline High Triglyceride 150-199 mg/dLHigh Triglyceride: 200-499 mg/dLVery High Triglyceride: greater than or equal to 5OO mg/dL Cholesterol 181 <200 mg/dL [facility] Comment:Desirable Cholestero l: less than 200 mg/dLBorderline High Cholesterol: 200-239 mg/dLHigh Cholesterol: greater than 239 mg/dL LDL Cholesterol Calculated 111(H) <100 mg/dL [facility] Comment:Desirable LDL: less than 100 mg/dLNear Optimal/Above Optimal LDL: 110- 129 mg/dLBorderline High LDL: 130-159 mg/dLHigh LDL: 160-189 mg/dLVery High LDL: greater than or equal to 190 mg/dL HDL Cholesterol 44 >40 mg/dL [facility] Comment:Desirable HDL: great er than 40 mg/dL Note: This HDL assay may give artificially low results in patients with liver disease. Blood 09/25/2025 3:38 PM EST 09/25/2025 4:18 PM EST us Priyanka Orozco MD LAB BLOOD ORDERABLES Final Resul t [facility] [address] [place] [phone] * CBC auto differential (09/25/2025 3:38 PM EST) White Blood Count 5.9 4.8 - 10.8 X10*3/uL [facility] Red Blood Count 4.69 4.20 - 5.50 X10*6/uL [facility] Hemoglobin 13.3 12.0 - 16.0 g/dl [facility] Hematocrit 39.9 37.0 - 47.0 % [facility] Mean Corpuscular Volume 85.1 80.0 - 98.0 fL [facility] Mean Corpuscular Hemoglobin 28.4 27.0 - 33.0 pg [facility] Mean Corpuscular HGB Conc 33.3 31.0 - 35.0 g/dl [facility] Red Cell Distribution Width 13.6 11.0 - 16.0 % [facility] Platelet Count 353 160 - 400 X10*3/uL [facility] Mean Platelet Volume 9.7 9.4 - 12.3 fL [facility] Neutrophils Percent Auto 52.6 45 - 73 % [facility] Imm Gran Pct Auto 0.2 0.0 - 0.4 % [facility] Lymphocytes Percent Auto 39.9 20 - 40 % [facility] Monocytes Percent Auto 5.4 2 - 11 % [facility] Eosinophils Percent Auto 1.4 0 - 4 % [facility] Basophils Percent Auto 0.5 0 - 2 % [facility] NRBC Pct Auto 0.0 0.0 - 0.2 /100WBC [facility] Neutrophils Absolute Auto 3.1 2.0 - 8.3 x10*3/uL [facility] Imm Gran Abs Auto 0.01 0.00 - 0.03 X10*3/uL [facility] Lymphocytes Absolute Auto 2.4 1.2 - 4.9 X10*3/uL [facility] Monocytes Absolute Auto 0.3 0.1 - 1.2 X10*3/uL [facility] Eosinophils Absolute Auto 0.1 0.0 - 0.4 X10*3/uL [facility] Basophils Absolute Auto 0.0 0.0 - 0.2 X10*3/uL [facility] NRBC Abs Auto 0.000 0.0 - 0.012 X10*3/uL [facility] Blood Venous blood specimen / Unknown 09/25/2025 3:38 PM EST 09/25/2025 4:18 PM EST us Priyanka Orozco MD LAB BLOOD ORDERABLES Final Resul t [facility] [address] [place] [phone] * (ABNORMAL) Iron And Total Iron Binding Capacity (09/25/2025 3:38 PM EST) Iron 36 30 - 160 mcg/dL [facility] Total Iron Binding Capacity 325 228 - 428 mcg/dL [facility] Percent Iron Saturation 11(L) 15 - 50 % [facility] Unsaturated Iron Binding 289 ug/dL [facility] Blood Venous blood specimen / Unknown 09/25/2025 3:38 PM EST 09/25/2025 4:18 PM EST Priyanka Orozco MD LAB BLOOD ORDERABLES Final Resul t Performing Organization Address [facility] Co de Phone Number [facility] [address] [place] [phone] * Reticulocyte Count (09/25/2025 3:38 PM EST) Reticulocytes Absolute 0.069 0.026 - 0.095 X10*6/uL [facility] Immature Retic Fraction 8.5 3.0 - 15.9 % [facility] Retic HGB Equivalent 32.6 30.0 - 35.0 pg [facility] Reticulocyte Percent 1.5 0.5 - 1.8 % [facility] Blood Venous blood specimen / Unknown 09/25/2025 3:38 PM EST 09/25/2025 4:18 PM EST Priyanka Orozco MD LAB BLOOD ORDERABLES Final Resul t Performing Organization Address [facility] Co de Phone Number [facility] [address] [place] [phone] * Hemoglobin A1c (09/25/2025 3:38 PM EST) Hemoglobin A1c 5.5 <6.0 % [facility] Comment:Hemoglobin A1C Refer ence Range Adults: 4.8 - 6.0 % Non diabetic: < 6.0 % Goal: < 7.0 %Additional Action Suggested: > 8.0 %Note: Hemoglobin A1c results are invalid for patients with abnormal amounts of HbF. Blood transfusions may impact the HbA1c concentration in the patient sample. Estimated Average Glucose 111 mg/dL [facility] Comment:eAG = Estimated ave rage glucose which is %A1C expressed asaverage glucose, using the formula of the [id number] Glucose study (ADAG), Diabetes Care, Vol.31,#8,2007 Blood Venous blood specimen / Unknown 09/25/2025 3:38 PM EST 09/25/2025 4:18 PM EST Priyanka Orozco MD LAB BLOOD ORDERABLES Final Resul t Performing Organization Address [facility] Co de Phone Number [facility] [address] [place] [phone] * Ferritin (09/25/2025 3:38 PM EST) Ferritin 57 10 - 122 ng/mL [facility] Blood Venous blood specimen / Unknown 09/25/2025 3:38 PM EST 09/25/2025 4:18 PM EST Priyanka Orozco MD LAB BLOOD ORDERABLES Final Resul t Performing Organization Address [facility] Phone Number [facility] [address] [place] [phone] * Hepatitis C Antibody with Reflex to HCV, RNA, Quantitative, Real-Time PCR (08/21/2024 11:39 AM EST) Hepatitis C Antibody Nonreactive Nonreactive [facility] Comment:Antibodies to HCV no t detected; does not exclude early acuteHCV infection. Blood Venous blood specimen / Unknown 08/21/2024 11:39 AM EST 08/21/2024 1:19 PM EST Priyanka Orozco MD LAB BLOOD ORDERABLES Final Resul t Performing Organization Address [facility] Phone Number [facility] [address] [place] [phone] * Image-Guided Pap with Age-Based Screening??with CT/NG,??Trichomonas (08/11/2023 9:30 AM EDT) Trichomonas (NAAT) NOT DETECTED NOT DETECTED [facility] Comment:The analytical perfo rmance characteristics of thisassay have been determined by [facility]. Themodifications have not been cleared or approved bythe FDA. This assay has been validated pursuant to theCLIA regulations and is used for clinical purposes.For additional information, please refer tohttp://[employer]Kapost/faq/Trichomonastma(This link is being provided for information/educational purposes only.)THIS TEST WAS PERFORMED AT:[email or web address] [place] [phone] R DE LEÓN MD CTNG Ref Lab NOT DETECTED NOT DETECTED [facility] NG Ref Lab NOT DETECTED NOT DETECTED [facility] 08/11/2023 9:30 AM EDT 08/12/2023 6:30 AM EDT Saritha Oro [facility] CYTOLOGY ORDERABLES F inal Result [facility] [address] [place] [phone] * HPV mRNA E6/E7 w/Reflex to HPV Genotypes 16, 18/45 (08/11/2023 9:30 AM EDT) HPV nRNA E6/E7 Not Detected Not Detected [facility] Comment:Methodology: Transcr iption-Mediated AmplificationThis assay detects E6/E7 viral messenger RNA (mRNA) from 14high-risk HPV types (16,18,31,33,35,39,45,51,52,56,58,59,66,68).Cervical sources are required for HPV testing.If a vaginal source from a patient who has had atotal hysterectomy with removal of cervix wassubmitted, please contact the testing laboratoryfor alternative testing options.For additional information, please refer tohttp://[employer]ost/faq/NHO774z2(This link if provided for information/educational purposes only.)THIS TEST WAS PERFORMED AT:[facility] [address] [phone] R DE LEÓN MD HPV mRNA E6/E7 [facility] HPV 16 RNA [facility] HPV 18/45 RNA [facility] 08/11/2023 9:30 AM EDT 08/12/2023 6:30 AM EDT Saritha LORD LAB CYTOLOGY ORDERABLES F inal Result Performing Organization Address City/[facility]/ZIP Co de Phone Number [facility] [address] [place] [phone] * HIV-1/2 Antigen and Antibodies, Fourth Generation, with Reflexes (03/31/2023 1:33 PM EDT) [facility] HIV Antigen/Antibody, 4th Generation NON-REAC TIVE NON-REAC TIVE [facility] Comment: HIV-1 antigen and HIV-1/HIV-2 antibodies were not detected. There is no laboratory evidence of HIV infection. PLEASE NOTE: This information has been disclosed to you from records whose confidentiality may be protected by state law. If your state requires such protection, then the state law prohibits you from making any further disclosure of the information without the specific written consent of the person to whom it pertains, or as otherwise permitted by law. A general authorization for the release of medical or other information is NOT sufficient for this purpose. For additional information please refer to http://education.[employer]Mix[employer]it/faq/VHR633 (This link is being provided for informational/ educational purposes only.) The performance of this assay has not been clinically validated in patients less than 2 years old. Blood Venous blood specimen / Unknown 03/31/2023 1:33 PM EDT 03/31/2023 1:34 PM EDT Narrative [facility] - 04/07/2023 7:14 PM EDT FASTING:NO FASTING: NO us Priyanka Orozco MD LAB BLOOD ORDERABLES Final Resul t [facility] [address] [place] [address], [place] [address] [facility] [address] [place] [phone] from Last 3 Months or Most Recently Relevant to Health Maintenance Insurance [facility] C3 DENTAL-[facility] MEDICAID STAND ADULT Care Teams [employer] Produ[employer] Washer Relationship Specialty Start Date End Date Priyanka Orozco MD [address] [place] [address] PCP - General Family Medicine 11/25/21
--- OUTSIDE RECORDS SUMMARY | 2025-09-25 23:49 | XMS_ITS | Encounter Summary ---
Author Organization [employer] [facility] Address [address] [facility] 7t h Floor [place] [phone] Care Team Providers Care Wardrobe Attendant Name Role Phone Priyanka Orozco MD Primary Care Provider [phone] Encounter Details Date Type Department Care Team (Late Contact Info) Description 10/25/2024 Orders Only [facility] [address] [place] [address] [phone] Priyanka Orozco MD [address] [place] [address] [phone] Breast pain, right (Primary Dx); Breast lump [...] Description 10/22/2025 9:30 AM EST Procedure Visit [address] [phone] Saritha Oro CNM [address] [place] [address] [phone] 10/23/2025 2:00 PM EST Nurse Only [address] [phone] 11/22/2025 9:00 AM EST Office Visit [address] [place] [address] Radha Phelps MD [address] [place] [address] documented as of this encounter Procedures Procedure [...] PM EST Narrative 11/28/2024 5:32 PM EST [address] [place] [address] Ultrasound Report Signed Patient: Pamela Louie MR#: [id number] : 1990 Acct:[id number] Age/Sex: 34 / F ADM Date: 11/28/24 Loc: HO.MAMMO Attending Dr: Priyanka Orozco MD Ordering Physician: Priyanka Orozco MD Date of Service: 11/28/24 Procedure(s): US breast RT limited mamm only Accession Number(s): [id number] cc: Priyanka Orozco MD EXAMINATION: MM DIAGNOSTIC [...] 11/28/24 1729 DD/ 1430 TD/TT: 11/28/24 1437 Cap Lining Machine Operator: Procedure Note Donotuseinterpreter, Image - 11/28/20[facility] [address] [place] [address] Ultrasound Report Signed Patient: Pamela Louie#: [id number] : 1990Acct:[id number] Age/Sex: 34 / FADM Date: 11/28/24 Loc: JAYSHREE.MAMMO Attending Dr: Priyanka Orozco MD Ordering Physician: Priyanka Orozco MD Date of Service: 11/28/24 Procedure(s): US breast RT limited mamm only Accession Number(s): [id number] cc: Priyanka Orozco MD EXAMINATION: MM DIAGNOSTIC [...] 11/28/24 1729 DD/ 1430 TD/TT: 11/28/24 1437 Cap Lining Machine Operator: us Priyanka Orozco MD IMG US PROCEDURES Final Result * BI Mammogram Diagnostic Tomosynthesis Bilateral (11/28/2024 2:00 PM EST) Anatomical Region Laterality Modality Breast Bilateral Mammography 11/28/2024 2:00 PM EST Narrative 11/28/2024 5:32 PM EST [facility]'s [address] [place] [address] Mammography Report Signed Patient: Pamela Louie MR#: [id number] : 1990 Acct:[id number] Age/Sex: 34 / F ADM Date: 11/28/24 Loc: MARIN Attending Dr: Priyanka Orozco MD Ordering Physician: Priyanka Orozco MD Results: 1Negative Date of Service: 11/28/24 Follow Up: 1 Year From Orig inal Mammogram Procedure(s): MM tomosynthesis diagnostic BI Accession Number(s): [id number] cc: Priyanka Orozco MD EXAMINATION: MM DIAGNOSTIC [...] by: Kiah Rodriguez DO 11/28/2024 05:29 PM [facility] [place] Dict[place] By: Kiah Rodriguez DO Signed By: <Electronically signed by Kiah Rodriguez DO in OV> 11/28/24 1729 DD/ 1400 TD/TT: 11/28/24 1423 Cap Lining Machine Operator: Procedure Note Donotuseinterpreter, Image - 11/28/2024 [facility] [address] [place] [address] Mammography Report Signed Patient: Pamela Louie [facility]#: [id number] : 1990Acct:[id number] Age/Sex: 34 / FADM Date: 11/28/24 Loc: MARIN Attending Dr: Priyanka Orozco MD Ordering Physician: Priyanka Orozco MDResults: 1Negative Date of Service: 11/28/24Follow Up: 1 Year From Orig inal Mammogram Procedure(s): MM tomosynthesis diagnostic BI Accession Number(s): [id number] cc: Priyanka Orozco MD EXAMINATION: MM DIAGNOSTIC [...] by: Kiah Rodriguez DO 11/28/2024 05:29 PM [facility] [place] Dictated By: Kiah Rodriguez DO Signed By: <Electronically signed by Kiah Rodriguez DO in OV> 11/28/24 1729 DD/ 1400 TD/TT: 11/28/24 1423 Cap Lining Machine Operator: us Priyanka Orozco MD IMG BI PROCEDURES Final Result documented in this encounter Visit Diagnoses Diagnosis Breast pain, right- Primary Breast lump on right side at 6 o'clock position Lump or mass in breast documented in this encounter Care Teams Wardrobe Attendant Relationship Specialty Start Date End Date Priyanka Orozco MD [address] [place] [phone] PCP - General Family Medicine 11/25/21 documented as of this encounter
--- OUTSIDE RECORDS SUMMARY | 2025-09-25 23:49 | XMS_ITS | Encounter Summary ---
Author Organization [employer] [facility] Address [address] [place] [address] 7t [place] [address] Care Team Providers Care Archeology Faculty Member Name Role Phone Priyanka Orozco MD Primary Care Provider [phone] Encounter Details Date Type Department Care Team (Late st Contact Info) Description 11/29/2024 Orders Only [facility] MEDICINE [address] [place] [address] [phone] Priyanka Orozco MD [address] [place], [place] [phone] Anemia due to vitamin B12 deficiency, unspecified [...] Description 10/22/2025 9:30 AM EST Procedure Visit [facility] [address] [place] [address] [phone] Saritha Oro CNM [address] [place], [place] [phone] 10/23/2025 2:00 PM EST Nurse Only [facility] [address] [place] [address] [phone] 11/22/2025 9:00 AM EST Office Visit [facility] [address] [place] [address] Radha Phelps MD [address] [place] [address] documented as of this encounter Procedures Procedure Name Priority Date/Time Associated Diagnosis Comments VITAMIN D,25-OH,TOTAL,IA Routine 01/25/2025 9:26 AM EDT Vitamin deficiency VITAMIN B12/FOLATE, SERUM PANEL Routine 01/25/2025 9:26 AM EDT Anemia due to vitamin B12 deficiency, unspecified B12 deficiency type TSH W/REFLEX TO FT4 Routine 01/25/2025 9 :26 AM EDT Fatigue, unspecified type CBC WITH AUTO DIFFERENTIAL Routine 01/25/2025 9:26 AM EDT Anemia due to vitamin B12 deficiency, unspecified B12 deficiency type IRON AND TOTAL IRON BINDING CAPACITY Routine 01/25/2025 9:26 AM EDT Anemia due to vitamin B12 deficiency, unspecified B12 deficiency type HEMOGLOBIN A1C Routine 01/25/2025 9:26 AM EDT Overweight FERRITIN Routine 01/25/2025 9:26 AM EDT Anemia due to vitamin B12 deficiency, unspecified B12 deficiency type COMPREHENSIVE METABOLIC PANEL Routine 01/25/2025 9:26 AM EDT Anemia due to vitamin B12 deficiency, unspecified B12 deficiency type documented in this encounter Results * Hemoglobin A1c (01/25/2025 9:26 AM EDT) Hemoglobin A1c 5.7 <6.0 % [facility] Comment:Hemoglobin A1C Refer ence Range Adults: 4.8 - 6.0 % Non diabetic: < 6.0 % Goal: < 7.0 %Additional Action Suggested: > 8.0 %Note: Hemoglobin A1c results are invalid for patients with abnormal amounts of HbF. Blood transfusions may impact the HbA1c concentration in the patient sample. Estimated Average Glucose 117 mg/dL [facility] Comment:eAG = Estimated ave rage glucose which is %A1C expressed asaverage glucose, using the formula of the D1T-NseezkqYxvyysj Glucose study (ADAG), Diabetes Care, Vol.31,#8,2007 Blood Venous blood specimen / Unknown 01/25/2025 9:26 AM EDT 01/25/2025 11:26 AM EDT Priyanka Orozco MD LAB BLOOD ORDERABLES Final Resul t Performing Organization Address [facility]/ZIP Co de Phone Number [facility] [address] [place] [phone] * TSH with Reflex to Free T4 (01/25/2025 9:26 AM EDT) TSH reflex Free T4 0.43 0.32 - 4.0 uIU/mL [facility] Blood 01/25/2025 9:26 AM EDT 01/25/2025 11:26 AM EDT Priyanka Orozco MD LAB BLOOD ORDERABLES Final Resul t Performing Organization Address [facility] Co de Phone Number [facility] [address] [place] [phone] * (ABNORMAL) Vitamin D, 25-Hydroxy, Total, Immunoassay (01/25/2025 9:26 AM EDT) Vitamin D 25-OH Total 24.7(L) >30 ng/mL [facility] Comment: Health Based Reference Values*< 20 ng/mL Kaprtnpvs77-03 ng/mL Insufficient> 30 ng/mL Sufficient*Mena FROST. N Engl J Med. 2007;357:266-280There is no well-established upper level of normal vitamin Dlevels. Some laboratories use 50 ng/mL as an upper limit ofnormal. However, toxicity is patient-dependent and may occurat any level. Careful correlation with the patient'spresentation is necessary and, if there is concern forvitamin D toxicity, treatment should be consideredirrespective of the serum level.Care must be taken in interpreting Vitamin D results fromdifferent laboratories and methodologies. Published datademonstrated that results from patients undergoinghemodialysis may show a negative bias when tested withvarious automated 25-OH vitamin D assays when compared toLC-MS/MS.When testing samples from patients whose predominant form ofVitamin D is Vitamin D2, such as patients receiving VitaminD2 supplementation, results that are subtherapeutic shouldbe confirmed with another method such as LC-MS/MS. Blood Venous blood specimen / Unknown 01/25/2025 9:26 AM EDT 01/25/2025 11:26 AM EDT Priyanka Orozco MD LAB BLOOD ORDERABLES Final Resul t Performing Organization Address [facility] Co de Phone Number [facility] [address] [place] [phone] * Vitamin B12 (Cobalamin) and Folate Panel, Serum (01/25/2025 9:26 AM EDT) Vitamin B12 482 200 - 900 pg/mL [facility] Comment:NORMAL 200-900 PG/ML INDETERMINATE 160-199 PG/ML DEFICIENT < 160 PG/ML Folate 13.3 > or = 4.0 ng/mL [facility] Comment:Reference Values:> o r = 4.0 ng/mL< 4.0 ng/mL suggests folate deficiency Methotrexate, aminopterin and folinic acid(leucovorin) are chemotherapeutic agents whose molecularstructures are similar to folate; therefore, the Architectfolate assay cannot be used for patients using these drugs. Blood 01/25/2025 9:26 AM EDT 01/25/2025 11:26 AM EDT Priyanka Orozco MD LAB BLOOD ORDERABLES Final Resul t Performing Organization Address [facility] Co de Phone Number [facility] [address] [place] [address] [phone] * Iron And Total Iron Binding Capacity (01/25/2025 9:26 AM EDT) Pathologist [facility] Iron 62 30 - 160 mcg/dL [facility] Total Iron Binding Capacity 332 228 - 428 mcg/dL [facility] Percent Iron Saturation 19 15 - 50 % [facility] Unsaturated Iron Binding 270 ug/dL [facility] Blood Venous blood specimen / Unknown 01/25/2025 9:26 AM EDT 01/25/2025 11:26 AM EDT Priyanka Orozco MD LAB BLOOD ORDERABLES Final Resul t Performing Organization Address [facility]/ZIP Co de Phone Number [facility] [address] [place] [phone] * Ferritin (01/25/2025 9:26 AM EDT) Pathologist [facility] Ferritin 54 10 - 122 ng/mL [facility] Blood Venous blood specimen / Unknown 01/25/2025 9:26 AM EDT 01/25/2025 11:26 AM EDT Priyanka Orozco MD LAB BLOOD ORDERABLES Final Resul t Performing Organization Address [facility] Co de Phone Number [facility] [address] [place] [phone] * (ABNORMAL) Comprehensive Metabolic Panel (01/25/2025 9:26 AM EDT) Pathologist [facility] Sodium 142 135 - 145 mmol/L [facility] Potassium 3.8 3.3 - 5.1 mmol/L [facility] Chloride 109(H) 96 - 108 mmol/L [facility] Carbon Dioxide 25 22 - 29 mmol/L [facility] Anion Gap 12 12 - 20 [facility] Urea Nitrogen (BUN) 11 9 - 16 mg/dL [facility] Creatinine, Serum 0.70 0.5 - 1.4 mg/dL [facility] Estimated Glomerular Filt Rate >60 [facility] Comment:Chronic Kidney Disea se: Estimated GFR < 60 mL/min/1.05b8Ehmxzo Kidney Disease: Estimated GFR < 15 mL/min/1.73m2 Glucose 114 60 - 115 mg/dL [facility] Calcium 9.4 8.4 - 10.2 mg/dL [facility] Bilirubin, Total 0.4 0.0 - 1.0 mg/dL [facility] Aspartate Amino Transferase 22 5 - 31 U/L [facility] Alanine Aminotransferase 26 0 - 31 U/L [facility] Total Protein 7.8 6.5 - 8.0 g/dL [facility] Albumin Level 4.4 3.5 - 5.0 g/dL [facility] Alkaline Phosphatase 101 39 - 117 U/L [facility] Blood Venous blood specimen / Unknown 01/25/2025 9:26 AM EDT 01/25/2025 11:26 AM EDT us Priyanka Orozco MD LAB BLOOD ORDERABLES Final Resul t [facility] [address] [place] [phone] * (ABNORMAL) CBC auto differential (01/25/2025 9:26 AM EDT) White Blood Count 5.1 4.8 - 10.8 X10*3/uL [facility] Red Blood Count 5.01 4.20 - 5.50 X10*6/uL [facility] Hemoglobin 14.2 12.0 - 16.0 g/dl [facility] Hematocrit 42.5 37.0 - 47.0 % [facility] Mean Corpuscular Volume 84.8 80.0 - 98.0 fL [facility] Mean Corpuscular Hemoglobin 28.3 27.0 - 33.0 pg [facility] Mean Corpuscular HGB Conc 33.4 31.0 - 35.0 g/dl [facility] Red Cell Distribution Width 13.4 11.0 - 16.0 % [facility] Platelet Count 368 160 - 400 X10*3/uL [facility] Mean Platelet Volume 10.0 9.4 - 12.3 fL [facility] Neutrophils Percent Auto 49.8 45 - 73 % [facility] Imm Gran Pct Auto 0.2 0.0 - 0.4 % [facility] Lymphocytes Percent Auto 41.5(H) 20 - 40 % [facility] Monocytes Percent Auto 6.3 2 - 11 % [facility] Eosinophils Percent Auto 1.4 0 - 4 % [facility] Basophils Percent Auto 0.8 0 - 2 % [facility] NRBC Pct Auto 0.0 0.0 - 0.2 /100WBC [facility] Neutrophils Absolute Auto 2.5 2.0 - 8.3 x10*3/uL [facility] Imm Gran Abs Auto 0.01 0.00 - 0.03 X10*3/uL [facility] Lymphocytes Absolute Auto 2.1 1.2 - 4.9 X10*3/uL [facility] Monocytes Absolute Auto 0.3 0.1 - 1.2 X10*3/uL [facility] Eosinophils Absolute Auto 0.1 0.0 - 0.4 X10*3/uL [facility] Basophils Absolute Auto 0.0 0.0 - 0.2 X10*3/uL [facility] NRBC Abs Auto 0.000 0.0 - 0.012 X10*3/uL [facility] Blood Venous blood specimen / Unknown 01/25/2025 9:26 AM EDT 01/25/2025 11:26 AM EDT us Priyanka Orozco MD LAB BLOOD ORDERABLES Final Resul t [facility] [address] [place] [phone] documented in this encounter Visit Diagnoses Diagnosis Anemia due to vitamin B12 deficiency, unspecified B12 deficiency type- Primary Fatigue, unspecified type Overweight Vitamin deficiency Unspecified vitamin deficiency documented in this encounter Care Teams Archeology Faculty Member Relationship Specialty Start Date End Date Priyanka Orozco MD [address] [place] [address] PCP - General Family Medicine 11/25/21 documented as of this encounter
--- OUTSIDE RECORDS SUMMARY | 2025-09-25 23:49 | XMS_ITS | Encounter Summary ---
Author Organization [employer] [facility] Address [address] [facility] 7t [place] [address] Care Team Providers Care Manager Resort Name Role Phone Priyanka Orozco MD Primary Care Provider [phone] Encounter Details Date Type Department Care Team (Late st Contact Info) Description 01/15/2025 Orders Only [facility] MEDICINE [address] [place] [address] [phone] Priyanka Orozco MD [address] [place] [address] [phone] Social History Tobacco Use Types Packs/Day Years [...] Description 10/22/2025 9:30 AM EST Procedure Visit [facility] [address] [place] [address] [phone] Saritha Oro CNM [address] [place] [address] [phone] 10/23/2025 2:00 PM EST Nurse Only [address] [phone] 11/22/2025 9:00 AM EST Office Visit [address] [phone] Radha Phelps MD [address] [place] [address] documented as of this encounter Visit Diagnoses Not on filedocumented in this encounter Care Teams Manager Resort Relationship Specialty Start Date End Date Priyanka Orozco MD [address] [place] [address] PCP - General Family Medicine 11/25/21 documented as of this encounter
--- OUTSIDE RECORDS SUMMARY | 2025-09-25 23:49 | XMS_ITS | Encounter Summary ---
Author Organization [facility] [employer] [facility] Address [address] [place] [address] 7t [place] [address] Care Team Providers Care Online Affiliate Marketing Manager Name Role Phone Priyanka Orozco MD Primary Care Provider [phone] Encounter Details Date Type Department Care Team (Late Contact Info) Description 08/02/2024 Orders Only [address] [phone] Priyanka Orozco MD [address] [place] [address] [phone] Transaminitis (Primary Dx) Social History Tobacco Use [...] Description 10/22/2025 9:30 AM EST Procedure Visit [address] [phone] Saritha Oro CNM [address] [place], [place] [phone] 10/23/2025 2:00 PM EST Nurse Only [address] [phone] 11/22/2025 9:00 AM EST Office Visit [address] [phone] Radha Phelps MD [address] [place] [address] documented as of this encounter Procedures Procedure [...] EST) Hepatitis B Surface Ag Negative Negative [facility] Blood Venous blood specimen / Unknown 08/21/2024 11:39 AM EST 08/21/2024 1:19 PM EST us Priyanka Orozco MD LAB BLOOD ORDERABLES Final Resul t [facility] [address] [place] [phone] * Hepatitis A Antibody, Total (08/21/2024 11:39 AM EST) Hepatitis A Antibody IgG REACTIVE Nonreactive [facility] Comment:The presence of IgG anti-HAV implies past HAV infection(recent or distant) or vaccination against HAV. Blood Venous blood specimen / Unknown 08/21/2024 11:39 AM EST 08/21/2024 1:19 PM EST Priyanka Orozco MD LAB BLOOD ORDERABLES Final Resul t Performing Organization Address [facility] Co de Phone Number [facility] [address] [place] [phone] * Hepatitis C Antibody with Reflex to HCV, RNA, Quantitative, Real-Time PCR (08/21/2024 11:39 AM EST) Hepatitis C Antibody Nonreactive Nonreactive [facility] Comment:Antibodies to HCV no t detected; does not exclude early acuteHCV infection. Blood Venous blood specimen / Unknown 08/21/2024 11:39 AM EST 08/21/2024 1:19 PM EST Priyanka Orozco MD LAB BLOOD ORDERABLES Final Resul t Performing Organization Address [facility] de Phone Number [facility] [address] [place] [address] [phone] * Hepatitis B Core Antibody, Total (08/21/2024 11:39 AM EST) Hepatitis B Core Antibody Nonreactive Nonreactive [facility] Blood Venous blood specimen / Unknown 08/21/2024 11:39 AM EST 08/21/2024 1:19 PM EST Priyanka Orozco MD LAB BLOOD ORDERABLES Final Resul t Performing Organization Address [facility] de Phone Number [facility] [address] [place] [address] [phone] * Hepatitis B Surface Antibody, Qualitative (08/21/2024 11:39 AM EST) ~Hepatitis B Surface Antibody REACTIVE Nonreactive [facility] Comment:REACTIVE: > 11.99 mI U/mL Blood Venous blood specimen / Unknown 08/21/2024 11:39 AM EST 08/21/2024 1:19 PM EST Priyanka Orozco MD LAB BLOOD ORDERABLES Final Resul t Performing Organization Address [facility] Phone Number [facility] [address] [place] [address] [phone] * (ABNORMAL) Hepatic Function Panel (08/21/2024 11:39 AM EST) Bilirubin, Total 0.4 0.0 - 1.0 mg/dL [facility] Bilirubin, Direct 0.1 0.0 - 0.5 mg/dL [facility] Aspartate Amino Transferase 32(H) 5 - 31 U/L [facility] Alanine Aminotransferase 41(H) 0 - 31 U/L [facility] Total Protein 7.4 6.5 - 8.0 g/dL [facility] Albumin Level 4.0 3.5 - 5.0 g/dL [facility] Alkaline Phosphatase 136(H) 39 - 117 U/L [facility] Blood Venous blood specimen / Unknown 08/21/2024 11:39 AM EST 08/21/2024 1:19 PM EST us Priyanka Orozco MD LAB BLOOD ORDERABLES Final Resul t Performing Organization Address [facility] de Phone Number [facility] [address] [place] [address] [phone] * Culture, Urine, Routine (08/02/2024 12:00 AM EDT) Urine Urine specimen obtained by clean catch procedure / Unknown 08/02/2024 08/02/2024 Comment:UACC Narrative [facility] - 08/04/2024 8:23 AM EDT Escherichia coli Quant > 100,000 cfu/mL Escherichia coli: Ampicillin >=32(R) Escherichia coli: Cefazolin <=4(S) Escherichia coli: Ceftriaxone <=0.25(S) Escherichia coli: Ciprofloxacin <=0.25(S) Escherichia coli: Gentamicin <=1(S) Escherichia coli: Nitrofurantoin <=16(S) Escherichia coli: Trimethoprim/Sulfamethoxazole <=20(S) Specimen Source: Urine clean catch Priyanka Orozco MD LAB MICROBIOLOGY - GENERAL ORDER DEMETRICE Final Result [facility] [address] [place] [address] [phone] documented in this encounter Visit Diagnoses Diagnosis Transaminitis- Primary Nonspecific elevation of levels of transaminase or lactic acid dehydrogenase (LDH) documented in this encounter Care Teams Online Affiliate Marketing Manager Relationship Specialty Start Date End Date Priyanka Orozco MD [address] [place] [address] [phone] PCP - General Family Medicine 11/25/21 documented as of this encounter
--- OUTSIDE RECORDS SUMMARY | 2025-09-25 23:49 | XMS_ITS | Encounter Summary ---
Author Organization [employer] Address [address] [facility] 7t [place] [address] Care Team Providers Care Dental Associate Name Role Phone Priyanka Orozco MD Primary Care Provider [phone] Encounter Details Date Type Department Care Team (Late st Contact Info) Description 08/22/2025 Orders Only [facility] [address] [place] [address] Priyanka Orozco MD [address] [place] [address] Routine screening for STI (sexually transmitted infection) (Primary Dx) Social History Tobacco Use Types [...] t he electric, gas, oil or water [employer] threatened to shut off services in your [...] Description 10/22/2025 9:30 AM EST Procedure Visit [address] [address] Saritha Oro CNM [address] [place] [phone] 10/23/2025 2:00 PM EST Nurse Only [address] [address] 11/22/2025 9:00 AM EST Office Visit [address] [address] Radha Phelps MD [address] [place] [phone] Scheduled Orders Name Type Priority Associated Diagnoses Orde r Schedule Syphilis Screen Lab Routine Routine screening for STI (sexually transmitted infection) Expected: 08/22/2025 (Approximate), Expires: 08/22/2026 Hepatitis C Antibody with Reflex to HCV, RNA, Quantitative, Real-Time PCR Lab Routine Routine screening for STI (sexually transmitted infection) Expected: 08/22/2025 (Approximate), Expires: 08/22/2026 Chlamydia/N. Gonorrhoeae RNA, TMA, Urogenitial Microbiology Routine Routine screening for STI (sexually transmitted infection) Expected: 08/22/2025 (Approximate), Expires: 08/22/2026 HIV-1/2 Antigen and Antibodies, Fourth Generation, with Reflexes Lab Routine Routine screening for STI (sexually transmitted infection) Expected: 08/22/2025 (Approximate), Expires: 08/22/2026 Hepatitis B surface antigen, EIA Lab Routine Routine screening for STI (sexually transmitted infection) Expected: 08/22/2025 (Approximate), Expires: 08/22/2026 documented as of this encounter Visit Diagnoses Diagnosis Routine screening for STI (sexually transmitted infection)- Primary Screening examination for venereal disease documented in this encounter Additional Health Concerns Assessment Noted Time PHQ-9 Depression Total Score: 025 11:50 AM EDT documented as of this encounter Care Teams Dental Associate Relationship Specialty Start Date End Date Priyanka Orozco MD [address] [place] [phone] PCP - General Family Medicine 11/25/21 documented as of this encounter
--- OUTSIDE RECORDS SUMMARY | 2025-09-25 23:49 | XMS_ITS | Encounter Summary ---
Author Organization [employer] [facility] Address [address] [place] [address] 7t [place] [address] Care Team Providers Care Family Practice Nurse Practitioner Name Role Phone Priyanka Orozco MD Primary Care Provider [phone] Encounter Details Date Type Department Care Team (Late st Contact Info) Description 01/15/2025 Orders Only [facility] [address] [place] [address] [phone] Priyanka Orozco MD [address] [place] [address] [phone] Dysuria (Primary Dx) Social History Tobacco Use [...] Description 10/22/2025 9:30 AM EST Procedure Visit [address] [phone] Saritha Oro CNM [address] [place], [place] [phone] 10/23/2025 2:00 PM EST Nurse Only [address] [phone] 11/22/2025 9:00 AM EST Office Visit [address] [phone] Radha Phelps MD [address] [place] [address] documented as of this encounter Procedures Procedure Name Priority Date/Time Associated Diagnosis Comments CULTURE, URINE, ROUTINE Routine 01/15/2025 12:00 AM EDT Dysuria documented in this encounter Results * Culture, Urine, Routine (01/15/2025 12:00 AM EDT) Urine Urine specimen obtained by clean catch procedure / Unknown 01/15/2025 01/15/2025 Comment:[facility] - 01/17/2025 11:10 AM EDT Urine Culture Report Result Urine Culture 10,000 to 50,000 cfu/ml Urine Culture Mixed bacterial polly characteristic of Urine Culture urogenital contamination. Specimen Source: Urine clean catch Priyanka Orozco MD LAB MICROBIOLOGY - GENERAL ORDER DEMETRICE Final Result [facility] [address] [place] [phone] documented in this encounter Visit Diagnoses Diagnosis Dysuria- Primary documented in this encounter Care Teams Family Practice Nurse Practitioner Relationship Specialty Start Date End Date Priyanka Orozco MD [address] [place] [phone] PCP - General Family Medicine 11/25/21 documented as of this encounter
--- OUTSIDE RECORDS SUMMARY | 2025-09-25 23:50 | XMS_ITS | Encounter Summary ---
Author Organization [facility] [employer] [facility] Address [address] [facility] 7t [place] [address] Care Team Providers Care Boat Finisher Name Role Phone Priyanka Orozco MD Primary Care Provider [phone] Encounter Details Date Type Department Care Team (Late st Contact Info) Description 02/19/2025 Orders Only [facility] [address] [place] [address] [phone] Priyanka Orozco MD [address] [place] [address] [phone] Social History Tobacco Use Types Packs/Day Years [...] Description 10/22/2025 9:30 AM EST Procedure Visit [address] [phone] Saritha Oro CNM [address] [place] [address] [phone] 10/23/2025 2:00 PM EST Nurse Only [address] [phone] 11/22/2025 9:00 AM EST Office Visit [address] [phone] Radha Phelps MD [address] [place] [address] documented as of this encounter Visit Diagnoses Not on filedocumented in this encounter Care Teams Boat Finisher Relationship Specialty Start Date End Date Priyanka Orozco MD [address] [place] [address] PCP - General Family Medicine 11/25/21 documented as of this encounter
--- OUTSIDE RECORDS SUMMARY | 2025-09-25 23:50 | XMS_ITS | Encounter Summary ---
Author Organization [employer] [facility] Address [address] [facility] 7t [place] [address] Care Team Providers Care Systems Technologist Name Role Phone Priyanka Orozco MD Primary Care Provider [phone] Encounter Details Date Type Department Care Team (Late Contact Info) Description 02/19/2025 Orders Only [address] [phone] Priyanka Orozco MD [address] [place] [address] [phone] Rash due to allergy Social History Tobacco Use Types Packs/Day Years [...] 10/22/2025 9:30 AM EST Procedure Visit [address] [phone] Saritha Oro CNM [address] [place], [place] [phone] 10/23/2025 2:00 PM EST Nurse Only [address] [phone] 11/22/2025 9:00 AM EST Office Visit [address] [phone] Radha Phelps MD [address] [place], [place] [phone] documented as of this encounter Visit Diagnoses Diagnosis Rash due to allergy documented in this encounter Care Teams Systems Technologist Relationship Specialty Start Date End Date Priyanka Orozco MD [address] [place], [place] [phone] PCP - General Family Medicine 11/25/21 documented as of this encounter
--- OUTSIDE RECORDS SUMMARY | 2025-09-25 23:50 | XMS_ITS | Encounter Summary ---
Author Organization [employer] Address [address] [facility] 7t [place] [address] Care Team Providers Care Prototyper Name Role Phone Priyanka Orozco MD Primary Care Provider [phone] Encounter Details Date Type Department Care Team (Late st Contact Info) Description 09/11/2025 Orders Only [facility] [address] [place] [address] Priyanka Orozco MD [address] [place], [place] [phone] Varicose veins of bilateral lower extremities with pain Social History Tobacco Use Types Packs/Day Years [...] Description 10/22/2025 9:30 AM EST Procedure Visit [address] [address] Saritha Oro CNM [address] [place] [address] 10/23/2025 2:00 PM EST Nurse Only [address] [phone] 11/22/2025 9:00 AM EST Office Visit [address] [address] Radha Phelps MD [address] [place] [phone] documented as of this encounter Visit Diagnoses Diagnosis Varicose veins of bilateral lower extremities with pain documented in this encounter Additional Health Concerns Assessment Noted Time PHQ-9 Depression Total Score: 11 025 11:50 AM EDT documented as of this encounter Care Teams Prototyper Relationship Specialty Start Date End Date Priyanka Orozco MD [address] [place] [phone] PCP - General Family Medicine 11/25/21 documented as of this encounter
--- OUTSIDE RECORDS SUMMARY | 2025-09-25 23:50 | XMS_ITS | Encounter Summary ---
Author Organization [employer] [facility] Address [address] [facility] 7t [place] [address] Care Team Providers Care Safety Professional Name Role Phone Priyanka Orozco MD Primary Care Provider [phone] Encounter Details Date Type Department Care Team (Late st Contact Info) Description 03/21/2023 Orders Only [facility] MEDICINE [address] [place], [place] [phone] Priyanka Orozco MD [address] [place], [place] [phone] Fatigue, unspecified type (Primary Dx); Anemia due [...] Description 10/22/2025 9:30 AM EST Procedure Visit [facility] MEDICINE [address], [place] [phone] Saritha Oro CNM [address], [place] [phone] 10/23/2025 2:00 PM EST Nurse Only [facility] MEDICINE [address], [place] [phone] 11/22/2025 9:00 AM EST Office Visit [facility] MEDICINE [address], [place] [phone] Radha Phelps MD [address] [place], [place] [phone] Scheduled Orders Name Type Priority Associated Diagnoses Orde r Schedule Chlamydia/N. Gonorrhoeae RNA, TMA, Urogenitial Microbiology Routine Routine screening for STI (sexually transmitted infection) Expected: 03/21/2023 (Approximate), Expires: 03/21/2024 documented as of this encounter Procedures Procedure Name Priority Date/Time Associated Diagnosis Comments RPR TITER REFLEX (NON ORDERABLE) Routine 03/31/2023 1:33 PM EDT VITAMIN B12/FOLATE, [...] (03/31/2023 1:33 PM EDT) FTA-ABS Nonreactive Nonreactive [email or web address]/ [facility] stephani MORELAND Comment: The FTA-ABS is a treponemal assay that is intended to be used with other tests (e.g., RPR) as part of a diagnostic algorithm in the diagnosis of syphilis. 03/31/2023 1:33 PM EDT 03/31/2023 1:34 PM EDT Narrative [facility]ST - 04/07/2023 7:14 PM EDT FASTING:NO FASTING: NO Priyanka Orozco MD LAB BLOOD ORDERABLES Final Resul t Performing Organization Address City/[facility]/ZIP Co de Phone Number [address], [place] [address] [facility] [address] [place], [place] * (ABNORMAL) RPR TITER REFLEX (03/31/2023 1:33 PM EDT) RPR Titer 1:1(H) [facility] [place] [facility] 03/31/2023 1:33 PM EDT 03/31/2023 1:34 PM EDT Narrative [facility] - 04/07/2023 7:14 PM EDT FASTING:NO FASTING: NO Priyanka Orozco MD HISTORICAL/NON ORDERABLE LABS Fi nal Result Performing Organization Address [facility] Co de Phone Number [facility] [address] [place] [address], [place] [address] [email or web address] [place] [facility] [address] [place] [phone] * (ABNORMAL) RPR (Diagnosis) with Reflex to Titer??and Confirmatory Testing (03/31/2023 1:33 PM EDT) RPR (DX) w/Refl Titer and Confirmatory Testing REACTIVE( A) NON-REACT KARLI [facility] [place] [facility] 03/31/2023 1:33 PM EDT 03/31/2023 1:34 PM EDT Narrative [facility] - 04/07/2023 7:14 PM EDT FASTING:NO FASTING: NO Priyanka Orozco MD LAB BLOOD ORDERABLES Final Resul t Performing Organization Address City/[facility]/ZIP Co de Phone Number [address], [place] [address] [email or web address] [place] [facility] [address] [place] [address] * HIV-1/2 Antigen and Antibodies, Fourth Generation, with Reflexes (03/31/2023 1:33 PM EDT) Pathologist [facility] HIV Antigen/Antibody, 4th Generation NON-REAC TIVE NON-REAC TIVE [email or web address] [place] [facility] Comment: HIV-1 antigen and HIV-1/HIV-2 antibodies were [...] purpose. For additional information please refer to http://education.Socius/faq/UKE696 (This link is being provided for informational/ educational purposes only.) The performance of this assay has not been clinically validated in patients less than 2 years old. Blood Venous blood specimen / Unknown 03/31/2023 1:33 PM EDT 03/31/2023 1:34 PM EDT Narrative RUST - 04/07/2023 7:14 PM EDT FASTING:NO FASTING: NO Priyanka Orozco MD LAB BLOOD ORDERABLES Final Resul t RUST [address] [facility], [place] [address] [email or web address] [place] [facility] [address] [place] [address] * Hepatitis C Antibody with Reflex to HCV, RNA, Quantitative, Real-Time PCR (03/31/2023 1:33 PM EDT) Pathologist [facility] Hepatitis C Antibody NON-REACT KARLI NON-REACT KARLI [email or web address] [place] [employer] Index 0.08 <1.00 [employer] Comment: HCV antibody was non-reactive. There is no laboratory evidence of HCV infection. In most cases, no further action is required. However, if recent HCV exposure is suspected, a test for HCV RNA (test code 37414) is suggested. For additional information please refer to http://Earbits.Socius/faq/GBF13j1 (This link is being provided for informational/ educational purposes only.) Blood Venous blood specimen / Unknown 03/31/2023 1:33 PM EDT 03/31/2023 1:34 PM EDT Narrative [facility] - 04/07/2023 7:14 PM EDT FASTING:NO FASTING: NO Priyanka Orozco MD LAB BLOOD ORDERABLES Final Resul t Performing Organization Address [facility] de Phone Number [address], [place] [address] [email or web address] [place] [employer] [address] [place] [phone] * Hepatitis B Surface Antigen with Reflex Confirmation (03/31/2023 1:33 PM EDT) Pathologist [facility] Hepatitis B Surface Ag NON-REACT KARLI NON-REACT KARLI [email or web address] [place] [employer] Blood Venous blood specimen / Unknown 03/31/2023 1:33 PM EDT 03/31/2023 1:34 PM EDT Narrative RUST - 04/07/2023 7:14 PM EDT FASTING:NO FASTING: NO Priyanka Orozco MD LAB BLOOD ORDERABLES Final Resul t Performing Organization Address [facility] de Phone Number [address], [place] [address] [email or web address] [place] [employer] [address] [place] [phone] * Hepatitis B Surface Antibody Immunity, Quantitative (03/31/2023 1:33 PM EDT) Hepatitis B Surface Antibody Immunity, QN 12 > OR = 10 mIU/mL [email or web address] [place] [employer] Comment: PATIENT HAS IMMUNITY TO HEPATITIS B VIRUS. For additional information, please refer to http://education.Socius/faq/RTD420 (This link is being provided for informational/ educational purposes only). Blood 03/31/2023 1:33 PM EDT 03/31/2023 1:34 PM EDT Narrative [facility] - 04/07/2023 7:14 PM EDT FASTING:NO FASTING: NO Priyanka Orozco MD LAB BLOOD ORDERABLES Final Resul t Performing Organization Address [facility] Co de Phone Number [facility] [address] [place] [address], [place] [address] [email or web address] [place] [employer] [address] [place] [phone] * Hepatitis B Core Antibody, Total (03/31/2023 1:33 PM EDT) Hepatitis B Core Antibody Total NON-REACT KARLI NON-REACT KARLI [email or web address] [place] [employer] Blood Venous blood specimen / Unknown 03/31/2023 1:33 PM EDT 03/31/2023 1:34 PM EDT Narrative [facility] - 04/07/2023 7:14 PM EDT FASTING:NO FASTING: NO Priyanka Orozco MD LAB BLOOD ORDERABLES Final Resul t Performing Organization Address [facility] de Phone Number [address], [place] [address] [email or web address] [place] [facility] [address] [place] [phone] * TSH W/Reflex to FT4 (03/31/2023 1:33 PM EDT) TSH w/Reflex to FT4 0.90 mIU/L [facility] Comment: Reference Range > or = 20 Years 0.40-4.50 Ranges First trimester 0.26-2.66 Second trimester 0.55-2.73 Third trimester 0.43-2.91 Blood 03/31/2023 1:33 PM EDT 03/31/2023 1:34 PM EDT Narrative RUST - 04/07/2023 7:14 PM EDT FASTING:NO FASTING: NO Priyanka Orozco MD LAB BLOOD ORDERABLES Final Resul t Performing Organization Address [facility] Co de Phone Number [address], [place] [address] [email or web address] [place] [facility] [address] [place] [phone] * Hemoglobin A1c (03/31/2023 1:33 PM EDT) Pathologist [facility] Hemoglobin A1c 5.2 <5.7 % of total Hgb [employer] Comment: For the purpose of screening for the presence of diabetes: <5.7% Consistent with the absence of diabetes 5.7-6.4% Consistent with increased risk for diabetes (prediabetes) > or =6.5% Consistent with diabetes This assay result is consistent with a decreased risk of diabetes. Currently, no consensus exists regarding use of hemoglobin A1c for diagnosis of diabetes in children. According to [employer] Diabetes Association (ADA) guidelines, hemoglobin A1c <7.0% represents optimal control in non- diabetic patients. Different metrics may apply to specific patient populations. Standards of Medical Care in Diabetes(ADA). Blood Venous blood specimen / Unknown 03/31/2023 1:33 PM EDT 03/31/2023 1:34 PM EDT Narrative RUST - 04/07/2023 7:14 PM EDT FASTING:NO FASTING: NO Priyanka Orozco MD LAB BLOOD ORDERABLES Final Resul t Performing Organization Address [facility]/ZIP Co de Phone Number [address], [place] [address] [email or web address] [place] [employer] [address] [place] [phone] * (ABNORMAL) CBC auto differential (03/31/2023 1:33 PM EDT) White Blood Cell Count 6.6 3.8 - 10.8 Thousand/ uL [employer] Red Blood Cell Count 4.61 3.80 - 5.10 Million/u L [facility] Hemoglobin 13.0 11.7 - 15.5 g/dL [facility] Hematocrit 39.4 35.0 - 45.0 % [facility] MCV 85.5 80.0 - 100.0 fL [facility] MCH 28.2 27.0 - 33.0 pg [facility] MCHC 33.0 32.0 - 36.0 g/dL [facility] RDW 13.7 11.0 - 15.0 % [facility] Platelet Count 411(H) 140 - 400 Thousand/ uL [facility] MPV 9.9 7.5 - 12.5 fL [facility] Absolute Neutrophils 3,478 1,500 - 7,800 cells/uL [facility] Absolute Lymphocytes 2,567 850 - 3,900 cells/uL [facility] Absolute Monocytes 422 200 - 950 cells/uL [facility] Absolute Eosinophils 92 15 - 500 cells/uL [facility] [place] [facility] Absolute Basophils 40 0 - 200 cells/uL [facility] Neutrophils 52.7 % [facility] [place] [facility] Lymphocytes 38.9 % [facility] [place] [facility] Monocytes 6.4 % [facility] [place] [facility] Eosinophils 1.4 % [facility] [place] [facility] Basophils 0.6 % [facility] [place] [facility] Blood Venous blood specimen / Unknown 03/31/2023 1:33 PM EDT 03/31/2023 1:34 PM EDT Narrative [facility] - 04/07/2023 7:14 PM EDT FASTING:NO FASTING: NO us Priyanka Orozco MD LAB BLOOD ORDERABLES Final Resul t [facility] [address], [place] [address] [email or web address] [place] [facility] [address] [place] [address] * Comprehensive Metabolic Panel (03/31/2023 1:33 PM EDT) Glucose 102 65 - 139 mg/dL [email or web address] [place] [employer] Comment: Non-fasting reference interval Urea Nitrogen (BUN) 11 7 - 25 mg/dL [email or web address] [place] [employer] Creatinine, Serum 0.72 0.50 - 0.97 mg/dL [email or web address] [place] [facility] eGFR 114 > OR = 60 mL/min/1 .73m2 [email or web address] [place] [employer] Comment: The eGFR is based on the CKD-EPI 2020 equation. To calculate the new eGFR from a previous Creatinine or Cystatin C result, go to https://www.kidney.org/professionals/ kdoqi/gfr%5Fcalculator BUN/Creatinine Ratio NOT APPLICABLE 6 - 22 (calc) [email or web address] [place] [facility] Sodium 138 135 - 146 mmol/L [email or web address] [place] [facility] Potassium 4.1 3.5 - 5.3 mmol/L [email or web address] [place] [facility] Chloride 101 98 - 110 mmol/L [email or web address] [place] [facility] Carbon Dioxide 30 20 - 32 mmol/L [email or web address] [place] [facility] Calcium 9.4 8.6 - 10.2 mg/dL [email or web address] [place] [facility] Protein, Total 7.5 6.1 - 8.1 g/dL [email or web address] [place] [facility] Albumin 4.4 3.6 - 5.1 g/dL [email or web address] [place] [facility] Globulin 3.1 1.9 - 3.7 g/dL (calc) [email or web address] [place] [facility] Albumin/Globul in Ratio 1.4 1.0 - 2.5 (calc) [email or web address] [place] [facility] Bilirubin, Total 0.3 0.2 - 1.2 mg/dL [email or web address] [place] [facility] Alkaline Phosphatase 67 31 - 125 U/L [email or web address] [place] [facility] AST 17 10 - 30 U/L [email or web address] [place] [facility] ALT 22 6 - 29 U/L [email or web address] [place] [facility] Blood Venous blood specimen / Unknown 03/31/2023 1:33 PM EDT 03/31/2023 1:34 PM EDT Narrative [facility] - 04/07/2023 7:14 PM EDT FASTING:NO FASTING: NO Priyanka Orozco MD LAB BLOOD ORDERABLES Final Resul t Performing Organization Address [facility] de Phone Number [address], [place] [address] [email or web address] [place] [employer] [address] [place] [phone] * Vitamin B12/Folate, Serum Panel (03/31/2023 1:33 PM EDT) Pathologist [facility] Vitamin B12 715 200 - 1,100 pg/mL [email or web address] [place] [facility] Folate, Serum 21.4 ng/mL [email or web address] [place] [facility] Comment: Reference Range Low: <3.4 Borderline: 3.4-5.4 Normal: >5.4 03/31/2023 1:33 PM EDT 03/31/2023 1:34 PM EDT Narrative [facility] - 04/07/2023 7:14 PM EDT FASTING:NO FASTING: NO Priyanka Orozco MD LAB BLOOD ORDERABLES Final Resul t Performing Organization Address [facility] de Phone Number [address], [place] [address] [email or web address] [place] [facility] [address] [place] [phone] * (ABNORMAL) Iron And Total Iron Binding Capacity (03/31/2023 1:33 PM EDT) Pathologist [facility] Iron, Total 50 40 - 190 mcg/dL [email or web address] [place] [facility] Iron Binding Capacity 441 250 - 450 mcg/dL (calc) [email or web address] [place] [facility] % Saturation 11(L) 16 - 45 % (calc) [email or web address] [place] [facility] Blood Venous blood specimen / Unknown 03/31/2023 1:33 PM EDT 03/31/2023 1:34 PM EDT Narrative [facility] - 04/07/2023 7:14 PM EDT FASTING:NO FASTING: NO us Priyanka Orozco MD LAB BLOOD ORDERABLES Final Resul t Performing Organization Address [facility]/ZIP Co de Phone Number [address], [place] [address] [email or web address] [place] [facility] [address] [place] [phone] * (ABNORMAL) Ferritin (03/31/2023 1:33 PM EDT) Ferritin 11(L) 16 - 154 ng/mL [email or web address] [place] [employer] Blood Venous blood specimen / Unknown 03/31/2023 1:33 PM EDT 03/31/2023 1:34 PM EDT Narrative RUST - 04/07/2023 7:14 PM EDT FASTING:NO FASTING: NO us Priyanka Orozco MD LAB BLOOD ORDERABLES Final Resul t Performing Organization Address [facility] Co de Phone Number [address], [place] [address] [email or web address] [place] [facility] [address] [place] [phone] documented in this encounter Visit Diagnoses Diagnosis Fatigue, unspecified type- Primary Anemia due to vitamin B12 deficiency, unspecified B12 deficiency type Routine screening for STI (sexually transmitted infection) Screening examination for venereal disease documented in this encounter Care Teams Safety Professional Relationship Specialty Start Date End Date Priyanka Orozco MD [address] [place] [phone] PCP - General Family Medicine 11/25/21 documented as of this encounter
--- OUTSIDE RECORDS SUMMARY | 2025-09-25 23:50 | XMS_ITS | Clinical Summary ---
Author Organization [facility] Address [address] [place] [address] Phone Care Team Providers Care Clinical Research Physician Name Role Phone Priyanka Orozco MD Primary Care Provider [phone] Allergies Active Allergy Reactions Criticality Noted Date Comments Penicillins Hives Low 08/21/2024 Medications No known medications Active Problems No known active problems Medical History Medical History Date Comments Depression [...] on file Sexual Orientation Not on file Last Filed Vital Signs Vital Sign Reading [...] 06/24/2032 06/24/2022, 07/05/2017, 10/22/2008, Additional history exists RSV Immunization Adult Patients (1 - 1-dose 75+ series) 2065 IPV [...] topic Insurance MEDICAID - [place] Care Teams Clinical Research Physician Relationship Specialty Start Date End Date Priyanka Orozco MD [address] [place] [phone] PCP - General Family Medicine 08/21/24
--- OUTSIDE RECORDS SUMMARY | 2025-09-25 23:50 | XMS_ITS | Encounter Summary ---
Author Organization [employer] [facility] Address [address] [facility] 7 [place] [address] Care Team Providers Care Assistant To The President Name Role Phone Priyanka Orozco MD Primary Care Provider [phone] Encounter Details Date Type Department Care Team (Latest Contact Info) Description 12/15/2018 Abstract [facility] CONVERSIONS Dental, Provider, DDS Social History [...] Description 10/22/2025 9:30 AM EST Procedure Visit [address] [address] Saritha Oro CNM [address] [place] [address] 10/23/2025 2:00 PM EST Nurse Only [address] [address] 11/22/2025 9:00 AM EST Office Visit [address] [phone] Radha Phelps MD [address] [place] [address] documented as of this encounter Visit Diagnoses Not on filedocumented in this encounter Care Teams Assistant To The President Relationship Specialty Start Date End Date Priyanka Orozco MD [address] [place] [address] PCP - General Family Medicine 11/25/21 documented as of this encounter
--- OUTSIDE RECORDS SUMMARY | 2025-09-25 23:50 | XMS_ITS | Encounter Summary ---
Author Organization [employer] [facility] Address [address] [place] [address] 7t [place] [address] Care Team Providers Care Cook Chili Name Role Phone Priyanka Orozco MD Primary Care Provider [phone] Encounter Details Date Type Department Care Team (Late st Contact Info) Description 02/07/2025 Orders Only [facility] MEDICINE [address] [place] [address] [phone] Priyanka Orozco MD [address] [place] [address] [phone] Vitamin D deficiency (Primary Dx) Social History Tobacco Use Types [...] Description 10/22/2025 9:30 AM EST Procedure Visit [address] [phone] Saritha Oro CNM [address] [place], [place] [phone] 10/23/2025 2:00 PM EST Nurse Only [address] [phone] 11/22/2025 9:00 AM EST Office Visit [address] [phone] Radha Phelps MD [address] [place], [place] [phone] documented as of this encounter Visit Diagnoses Diagnosis Vitamin D deficiency- Primary documented in this encounter Care Teams Cook Chili Relationship Specialty Start Date End Date Priyanka Orozco MD [address] [place] [address] PCP - General Family Medicine 11/25/21 documented as of this encounter
--- OUTSIDE RECORDS SUMMARY | 2025-09-25 23:50 | XMS_ITS | Encounter Summary ---
Author Organization [employer] [facility] Address [address] [facility] 7 [place] [address] Care Team Providers Care Senior Lead Software Engineer Name Role Phone Priyanka Orozco MD Primary Care Provider [phone] Encounter Details Date Type Department Care Team (Latest Contact Info) Description 12/12/2020 Abstract [facility] CONVERSIONS Dental, Provider, DDS Social History Tobacco [...] Description 10/22/2025 9:30 AM EST Procedure Visit [address] [address] Saritha Oro CNM [address] [place] [address] 10/23/2025 2:00 PM EST Nurse Only [address] [address] 11/22/2025 9:00 AM EST Office Visit [address] [address] Radha Phelps MD [address] [place] [address] documented as of this encounter Visit Diagnoses Not on filedocumented in this encounter Care Teams Senior Lead Software Engineer Relationship Specialty Start Date End Date Priyanka Orozco MD [address] [place] [address] PCP - General Family Medicine 11/25/21 documented as of this encounter
--- OUTSIDE RECORDS SUMMARY | 2025-09-25 23:50 | XMS_ITS | Encounter Summary ---
Author Organization [employer] Address [address] [facility] [address] 7t [place] [address] Care Team Providers Care Winery Cellar Hand Name Role Phone Priyanka Orzoco MD Primary Care Provider [phone] Encounter Details Date Type Department Care Team (Latest Contact Info) Description 09/23/2025 Travel Social History Tobacco Use Types Packs/Day [...] Description 10/22/2025 9:30 AM EST Procedure Visit [address] [address] Saritha Oro CNM [address] [place] [address] 10/23/2025 2:00 PM EST Nurse Only [address] [address] 11/22/2025 9:00 AM EST Office Visit [address] [address] Radha Phelps MD [address] [place] [address] documented as of this encounter Visit Diagnoses Not on filedocumented in this encounter Additional Health Concerns Assessment Noted Time PHQ-9 Depression Total Score: 11 025 11:50 AM EDT documented as of this encounter Care Teams Winery Cellar Hand Relationship Specialty Start Date End Date Priyanka Orozco MD [address] [place] [address] PCP - General Family Medicine 11/25/21 documented as of this encounter
--- OUTSIDE RECORDS SUMMARY | 2025-09-25 23:50 | XMS_ITS | Encounter Summary ---
Author Organization [employer] Address [address] [facility] 7t [place] [address] Care Team Providers Care Cashier Greeter Name Role Phone Priyanka Orozco MD Primary Care Provider [phone] Encounter Details Date Type Department Care Team (Late st Contact Info) Description 04/24/2025 Orders [address] [facility] MEDICINE [address] [place] [address] Priyanka Orozco MD [address] [place], [place] [phone] Social History Tobacco Use Types Packs/Day Years [...] the past 12 months, has t he [employer], gas, oil or water [employer] threatened to shut off services in your [...] Description 10/22/2025 9:30 AM EST Procedure Visit [address] [address] Saritha Oro CNM [address] [place] [address] 10/23/2025 2:00 PM EST Nurse Only [address] [address] 11/22/2025 9:00 AM EST Office Visit [address] [address] Radha Phelps MD [address] [place] [address] documented as of this encounter Visit Diagnoses Not on filedocumented in this encounter Additional Health Concerns Assessment Noted Time PHQ-9 Depression Total Score: 11 025 11:50 AM EDT documented as of this encounter Care Teams Cashier Greeter Relationship Specialty Start Date End Date Priyanka Orozco MD [address] [place] [address] PCP - General Family Medicine 11/25/21 documented as of this encounter
[2025-09-26 04:16] LABS: Syphilis Screen Nonreactive (Nonreactive)
[2025-09-26 04:50] LABS: HBsAGNum1 0.40 S/CO (0.00-0.99); HIV Num 1 0.06 S/CO (0.00-0.99); Hepatitis B Surface Antigen Negative (Negative); ~HepC Num1 0.19 S/CO (0.00-0.79); ~Hepatitis C Antibody Nonreactive (Nonreactive)
== END 2025-09-25 15:18 | disposition home or self-care (01) ==
LOC: HO.HHCL 15:17
PROVIDERS: PCP Family Medicine; Visit Provider Family Medicine
DX: Z11.3 Encounter for screening for infections with a predominantly sexual mode of transmission (principal); Z13.1 Encounter for screening for diabetes mellitus; Z13.220 Encounter for screening for lipoid disorders; Z11.4 Encounter for screening for human immunodeficiency virus [HIV]; Z01.84 Encounter for antibody response examination; D51.9 Vitamin B12 deficiency anemia, unspecified
CPT/HCPCS: 36415; 80061; 82607; 82728; 82746; 83036; 83540; 85025; 85045; 86780; 86803; 87340; 87389